=== PATIENT | female | born 1960 | race Caucasian/White ===

== ENCOUNTER 2020-05-25 11:25 | Emergency (ER) | payer OTHER, SELFPAY ==
--- NOTE | 2020-05-25 12:21 | ECG_ITS ---
Test Reason : SOB Blood Pressure : / mmHG Vent. Rate : 059 BPM Atrial Rate : 059 BPM P-R Int : 150 ms QRS Dur : 086 ms QT Int : 432 ms P-R-T Axes : 026 052 044 degrees QTc Int : 427 ms Sinus bradycardia Otherwise normal ECG When compared with ECG of 15-JUN-2012 09:38, No significant change was found Referred By: Leyda Prince Electronically Signed By:Mervin Dee
[2020-05-25 12:22] VITALS: BP 165/72; PULSE 57; RESP 16; TEMP 36.7; O2SAT 100; BMI 37.4
--- NOTE | 2020-05-25 12:22 | XR_ITS ---
EXAMINATION: XR CHEST CLINICAL INFORMATION: Shortness of breath, productive cough and dizziness COMPARISON: Previous chest x-ray most recent June 2014 TECHNIQUE: Frontal view of the chest was obtained. FINDINGS: The cardiac silhouette does not appear enlarged. There is an abnormal density left medial lung base. This is similar to previous chest x-ray from 2015 and may represent a small esophageal hernia. Hilar and mediastinal contours are otherwise unremarkable. There is a 3 mm nodule in the left upper lobe that is stable. The lungs are otherwise clear. There is no pleural effusion or pneumothorax. Bony structures are unremarkable XR/XR chest 1V IMPRESSION: No evidence for acute disease in the chest. Probable small esophageal hernia.
--- NOTE | 2020-05-25 12:24 | ED_ITS ---
HPI - SOB/Dyspnea General Chief Complaint: Dyspnea Stated Complaint: SOB Time Seen by Provider: 05/25/20 12:11 Source: patient Mode of arrival: ambulatory Limitations: no limitations History of Present Illness HPI Narrative: 60yoF c PMHx of HTN, Depression and + COVID-19 on Apr 30 presenting to the ED c c/o productive cough c SOB, productive cough and episode of dizziness yesterday while at work sitting down yesterday c chest wall discomfort worse c cough. Associated b/l hand tingling. Denies dizziness at this time, lightheadedness, changes in vision, nausea/vomiting, hemoptysis, dyspnea on exertion, orthopnea, palpitations, extremity edema, any symptoms or any other symptoms complaints or concerns at this time. Related Data Previous Rx's Medication Instructions Recorded albuterol sulfate 1 inh INHALATION QID PRN #8.5 g 05/25/20 azithromycin See Rx Instructions .ROUTE 05/25/20 .COMPLEX #6 tab cyclobenzaprine 10 mg PO TID PRN #10 tab 05/25/20 Allergies Allergy/AdvReac Type Severity Reaction Status Date / Time citalopram Allergy Unknown restless Verified 05/30/19 00:00 leg syndrome No Known Allergies Allergy Unverified 01/12/20 15:23 venlafaxine AdvReac Unknown abdominal Verified 05/30/19 00:00 pain BuPROPion HBr ER Allergy Unknown inadequate Uncoded 05/30/19 00:00 response Review of Systems Review of Systems: Constitutional : no history of PE or DVT, denies recent tr marquis, No Fever, No Chills ENT/Mouth : No Hoarseness, No sore throat, No Rhinorrhea Eyes: No Redness, No Discharge, No Vision Changes Cardiovascular : No Chest Pain, + SOB, No Dyspnea on Exertion, No Edema, no pleurisy, Respiratory : + Cough, + Sputum, no stridor, no hemoptysis, Gastrointestinal : No Nausea, No Vomiting, No Diarrhea, No abdominal Pain Genitourinary : No Dysuria, No Hematuria Musculoskeletal : No joint pain, No Myalgias Extremities: no extremity swelling /pain Skin : No rash, no itching, no swelling Neuro : + Dizziness, No Weakness, No Numbness, No Headache Psych : No anxiety, depression Heme/Lymph: No Bruising, No Bleeding Endocrine : No Polyuria, No Polydipsia Yes all other systems are reviewed and are negative [facility] Past Medical History Attestation statement: The following information was validated with the patient. Medical History Lab test positive for detection of COVID-19 virus Obesity Social History Social History Alcohol intake: never Smoking Status: Never smoker Use of substances other than those prescribed or required for medical reasons: No Advance Directives: Yes Advance Directives Information Provided: Yes Advance Directives on File: No Physical Exam Vital Signs: Vital Signs: Last Vital Signs Temp 98.0 F 05/25/20 12:22 Pulse 57 05/25/20 12:22 Resp 16 05/25/20 12:22 BP 165/72 H 05/25/20 12:22 Pulse Ox 100 05/25/20 12:22 Body Mass Index 37.4 vital signs have been reviewed as normal and appeared to be correct. Blood pressure hypertensive. Heart rate normal. Respiration rate normal. Temperature normal. Oxygen saturation normal. Appearance: Alert. Oriented X3. No acute distress. Head: Normal external exam. Normocephalic. Atraumatic. Eyes: PERRLA. EOMI. Conjunctiva and sclera normal. Eyelids normal. ENT: EAC normal. TM's Normal. Pharynx normal. Uvula midline. Moist mucous membranes. No trismus noted. No drooling noted. No muffled voice noted. Neck: Normal inspection. Neck supple. FROM. No adenopathy. Thyroid Normal. No meningeal signs. No neck mass noted. CVS: Normal heart rate and rhythm. Heart sound normal. No murmurs noted. Pulses normal throughout. Respiratory: No respiratory distress. Painless inspiration. Breath sounds normal. No wheezes/rales/rhonchi noted. Chest nontender. No accessory muscle usage noted or decreased air movement noted. Back: Full range of motion noted. Skin: Skin warm and dry. Normal skin color. Normal skin turgor. No rashes/lesions/lacerations noted. Extremities: No lower extremity edema. No calf tenderness noted. Extremities exhibit normal range of motion. Extremities nontender. Neuro: Oriented X 3. No motor deficit. No sensory deficit. Reflexes normal. Course Course Course Narrative: 60yoF c PMHx of HTN, Depression and + COVID-19 on Apr 30 presenting to the ED c c/o productive cough c SOB, productive cough and episode of dizziness yesterday while at work sitting down yesterday c chest wall discomfort worse c cough. Associated b/l hand tingling. - Concern for PE vs CHF vs ACS - PLAN: LABS, CHEST X-RAY, EKG, ORTHOSTATIC VITALS. THEN RE-EVALUATE. Reevaluation(s) Reevaluation #1: - all labs including D-dimer and troponin within normal limits. COVID/RSV/flu negative. EKG sinus bradycardia otherwise no acute ischemic changes noted. Chest x-ray revealed a hiatal hernia and a pulmonary nodule therefore I printed out the chest x-ray results and handed to the patient. CT scan of brain within normal limits no acute processes noted. Will DC home with antibiotics for possible bronchitis infection. Will also give referral to GI for her hiatal hernia and pulmonology for her pulmonary nodule. Will DC home with antibiotics and symptomatic treatment along with instructions return if any new or worsening symptoms to follow up with primary care provider and the referrals that I gave her. Patient understands agrees with this plan. Time: 15:14 MDM - SOB/Dyspnea Differential Diagnosis Differential diagnosis: Likely congestive heart failure, pneumonia, asthma with exacerbation, pulmonary embolism, pleural effusion and anemia Medical Records Attestation: I reviewed the patient's medical records. Lab Data Attestation: I reviewed the patient's lab results. Result diagrams: 05/25/20 13:09 05/25/20 13:09 Labs: Lab Results 05/25/20 05/25/20 05/25/20 Range/Units 13:09 13:09 13:09 WBC 10.3 (4.8-10.8) X10*3/uL RBC 3.97 L (4.20-5.50) X10*6/uL Hgb 11.2 L (12.0-16.0) g/dl Hct 35.4 L (37-47) % MCV 89.2 (80-98) fL MCH 28.2 (27.0-33.0) pg MCHC 31.6 (31.0-35.0) g/dl RDW 13.2 (11.0-16.0) % Plt Count 216 (160-400) X10*3/uL MPV 9.0 L (9.4-12.3) fL Immature Gran % (Auto) 1.0 H (0.0-0.4) % Neut % (Auto) 56.7 (45-73) % Lymph % (Auto) 33.9 (20-40) % [place] % (Auto) 6.0 (2-11) % Eos % (Auto) 2.1 (0-4) % Baso % (Auto) 0.3 (0-2) % Lymph # (Auto) 3.5 (1.2-4.9) X10*3/uL [place] # (Auto) 0.6 (0.1-1.2) X10*3/uL Eos # (Auto) 0.2 (0.0-0.4) X10*3/uL Baso # (Auto) 0.0 (0.0-0.2) X10*3/uL Abs Immat Gran (auto) 0.10 H (0.00-0.03) X10*3/uL Absolute Neuts (auto) 5.9 (2.0-8.3) X10*3/uL Absolute Nucleated RBC 0.000 (0.0-0.012) X10*3/uL Nucleated RBC % (auto) 0.0 (0.0-0.2) /100WBC PT 12.6 (10.8-13.0) SEC INR 1.1 (0.9-1.1) D-Dimer < 200 NG/ML Sodium 139 (135-145) mmol/L Potassium 3.6 (3.3-5.1) mmol/L Chloride 100 (96-108) mmol/L Carbon Dioxide 31 H (22-29) mmol/L Anion Gap 12 (12-20) BUN 13 (9-16) mg/dL Creatinine 0.72 (0.5-1.4) mg/dL Estim Creat Clear Calc 86.8 Estimated GFR > 60 Random Glucose 92 (60-115) mg/dL Calcium 9.0 (8.4-10.2) mg/dL Magnesium 2.1 (1.6-2.6) mg/dL Ferritin (10-250) ng/mL Total Bilirubin 0.5 (0.0-1.0) mg/dL Direct Bilirubin < 0.2 (0.0-0.5) mg/dL AST 18 (5-31) U/L ALT 25 (0-31) U/L Alkaline Phosphatase 91 (39-117) U/L Lactate Dehydrogenase 198 (122-220) U/L Troponin I High Sens (<3.5-17.0) ng/L C-Reactive Protein 1.07 H (< or = 0.50) mg/dL B-Natriuretic Peptide (<100) pg/mL Total Protein 7.7 (6.5-8.0) g/dL Albumin 4.2 (3.5-5.0) g/dL Specimen Comment Coronavirus (PCR) (Negative) Influenza Type A (PCR) (Negative) Influenza Type B (PCR) (Negative) RSV RNA Qual (PCR) (Negative) 05/25/20 05/25/20 05/25/20 Range/Units 13:09 13:09 13:09 WBC (4.8-10.8) X10*3/uL RBC (4.20-5.50) X10*6/uL Hgb (12.0-16.0) g/dl Hct (37-47) % MCV (80-98) fL MCH (27.0-33.0) pg MCHC (31.0-35.0) g/dl RDW (11.0-16.0) % Plt Count (160-400) X10*3/uL MPV (9.4-12.3) fL Immature Gran % (Auto) (0.0-0.4) % Neut % (Auto) (45-73) % Lymph % (Auto) (20-40) % [place] % (Auto) (2-11) % Eos % (Auto) (0-4) % Baso % (Auto) (0-2) % Lymph # (Auto) (1.2-4.9) X10*3/uL [place] # (Auto) (0.1-1.2) X10*3/uL Eos # (Auto) (0.0-0.4) X10*3/uL Baso # (Auto) (0.0-0.2) X10*3/uL Abs Immat Gran (auto) (0.00-0.03) X10*3/uL Absolute Neuts (auto) (2.0-8.3) X10*3/uL Absolute Nucleated RBC (0.0-0.012) X10*3/uL Nucleated RBC % (auto) (0.0-0.2) /100WBC PT (10.8-13.0) SEC INR (0.9-1.1) D-Dimer NG/ML Sodium (135-145) mmol/L Potassium (3.3-5.1) mmol/L Chloride (96-108) mmol/L Carbon Dioxide (22-29) mmol/L Anion Gap (12-20) BUN (9-16) mg/dL Creatinine (0.5-1.4) mg/dL Estim Creat Clear Calc Estimated GFR Random Glucose (60-115) mg/dL Calcium (8.4-10.2) mg/dL Magnesium (1.6-2.6) mg/dL Ferritin 159 (10-250) ng/mL Total Bilirubin (0.0-1.0) mg/dL Direct Bilirubin (0.0-0.5) mg/dL AST (5-31) U/L ALT (0-31) U/L Alkaline Phosphatase (39-117) U/L Lactate Dehydrogenase (122-220) U/L Troponin I High Sens < 3.5 (<3.5-17.0) ng/L C-Reactive Protein (< or = 0.50) mg/dL B-Natriuretic Peptide 67 (<100) pg/mL Total Protein (6.5-8.0) g/dL Albumin (3.5-5.0) g/dL Specimen Comment Coronavirus (PCR) NEGATIVE (Negative) Influenza Type A (PCR) NEGATIVE (Negative) Influenza Type B (PCR) NEGATIVE (Negative) RSV RNA Qual (PCR) NEGATIVE (Negative) 05/25/20 Range/Units 14:02 WBC (4.8-10.8) X10*3/uL RBC (4.20-5.50) X10*6/uL Hgb (12.0-16.0) g/dl Hct (37-47) % MCV (80-98) fL MCH (27.0-33.0) pg MCHC (31.0-35.0) g/dl RDW (11.0-16.0) % Plt Count (160-400) X10*3/uL MPV (9.4-12.3) fL Immature Gran % (Auto) (0.0-0.4) % Neut % (Auto) (45-73) % Lymph % (Auto) (20-40) % [place] % (Auto) (2-11) % Eos % (Auto) (0-4) % Baso % (Auto) (0-2) % Lymph # (Auto) (1.2-4.9) X10*3/uL [place] # (Auto) (0.1-1.2) X10*3/uL Eos # (Auto) (0.0-0.4) X10*3/uL Baso # (Auto) (0.0-0.2) X10*3/uL Abs Immat Gran (auto) (0.00-0.03) X10*3/uL Absolute Neuts (auto) (2.0-8.3) X10*3/uL Absolute Nucleated RBC (0.0-0.012) X10*3/uL Nucleated RBC % (auto) (0.0-0.2) /100WBC PT (10.8-13.0) SEC INR (0.9-1.1) D-Dimer NG/ML Sodium (135-145) mmol/L Potassium (3.3-5.1) mmol/L Chloride (96-108) mmol/L Carbon Dioxide (22-29) mmol/L Anion Gap (12-20) BUN (9-16) mg/dL Creatinine (0.5-1.4) mg/dL Estim Creat Clear Calc Estimated GFR Random Glucose (60-115) mg/dL Calcium (8.4-10.2) mg/dL Magnesium (1.6-2.6) mg/dL Ferritin (10-250) ng/mL Total Bilirubin (0.0-1.0) mg/dL Direct Bilirubin (0.0-0.5) mg/dL AST (5-31) U/L ALT (0-31) U/L Alkaline Phosphatase (39-117) U/L Lactate Dehydrogenase (122-220) U/L Troponin I High Sens (<3.5-17.0) ng/L C-Reactive Protein (< or = 0.50) mg/dL B-Natriuretic Peptide (<100) pg/mL Total Protein (6.5-8.0) g/dL Albumin (3.5-5.0) g/dL Specimen Comment DELAY Coronavirus (PCR) (Negative) Influenza Type A (PCR) (Negative) Influenza Type B (PCR) (Negative) RSV RNA Qual (PCR) (Negative) Imaging Data Chest x-ray: Attestation: I personally reviewed and interpreted this imaging study as follows: Radiologist's impression: FINDINGS: The cardiac silhouette does not appear enlarged. There is an abnormal density left medial lung base. This is similar to previous chest x-ray from 2015 and may represent a small esophageal hernia. Hilar and mediastinal contours are otherwise unremarkable. There is a 3 mm nodule in the left upper lobe that is stable. The lungs are otherwise clear. There is no pleural effusion or pneumothorax. Bony structures are unremarkable XR/XR chest 1V IMPRESSION: No evidence for acute disease in the chest. Probable small esophageal hernia. CT scan - head: Attestation: I personally reviewed and interpreted this imaging study as follows: Radiologist's impression: FINDINGS: There is no evidence of acute intracranial hemorrhage or territorial infarction. No abnormal mass effect or midline shift is seen. Breaux to white matter differentiation is well preserved. No extra-axial fluid collections are identified. The ventricles are normal in size. There is no abnormal attenuation within the brain parenchyma. The osseous structures and soft tissues are normal. No acute intracranial process seen. CT/CT head/brain wo con IMPRESSION: No acute intracranial process seen. ECG Data Attestation: I personally reviewed and interpreted this ECG as follows: ECG interpretation date: 05/25/20 ECG interpretation time: 12:43 Interpretation: Sinus bradycardia with ventricular rate of 59 with a normal IN interval normal QRS duration normal QT/QTC interval. No acute ischemic changes noted. EKG 06/15/2012. Discharge Plan Discharge Clinical Impression: Esophageal hernia, Lung nodule, Bronchitis, Dizziness of unknown etiology, COVID-19 Patient Disposition: Home, Self-Care Instructions: Hiatal Hernia (ED), Pulmonary Nodules (ED) Prescriptions: New azithromycin 250 mg tablet See Rx Instructions .ROUTE .COMPLEX Qty: 6 RF: 0 albuterol sulfate 90 mcg/actuation HFA aerosol inhaler 1 inh inhalation QID PRN (Reason: shortness of breath or wheezing) Qty: 8.5 RF: 0 cyclobenzaprine 10 mg tablet 10 mg PO TID PRN (Reason: muscle spasm) Qty: 10 RF: 0 Referrals: Belén Rowland MD [Physician] - 1 week (Hiatal hernia follow-up) Brent Khan MD [Physician] - 1 week (Pulmonary nodule follow-up) Stand Alone Forms: Work/School Release Print Language: Estonian
[2020-05-25 13:16] LABS: MANUAL DIFF FLAG NO
[2020-05-25 13:19] LABS: Basophils Percent Auto 0.3 % (0-2); Eosinophils Absolute Auto 0.2 X10*3/uL (0.0-0.4); Eosinophils Percent Auto 2.1 % (0-4); Hematocrit 35.4 % (37-47); Hemoglobin 11.2 g/dl (12.0-16.0); Lymphocytes Absolute Auto 3.5 X10*3/uL (1.2-4.9); Lymphocytes Percent Auto 33.9 % (20-40); Mean Corpuscular HGB Conc 31.6 g/dl (31.0-35.0); Mean Corpuscular Hemoglobin 28.2 pg (27.0-33.0); Mean Corpuscular Volume 89.2 fL (80-98); Monocytes Absolute Auto 0.6 X10*3/uL (0.1-1.2); Neutrophils Absolute Auto 5.9 X10*3/uL (2.0-8.3); Neutrophils Percent Auto 56.7 % (45-73); Platelet Count 216 X10*3/uL (160-400); Red Blood Count 3.97 X10*6/uL (4.20-5.50); Red Cell Distribution Width 13.2 % (11.0-16.0); White Blood Count 10.3 X10*3/uL (4.8-10.8)
[2020-05-25 13:24] LABS: INTERNATIONAL NORM RATIO 1.1 (0.9-1.1); Prothrombin Time 12.6 SEC (10.8-13.0)
[2020-05-25 13:32] LABS: D Dimer < 200 NG/ML
[2020-05-25 13:56] LABS: Alanine Aminotransferase 25 U/L (0-31); Albumin Level 4.2 g/dL (3.5-5.0); Alkaline Phosphatase 91 U/L (39-117); Anion Gap 12 (12-20); Aspartate Amino Transferase 18 U/L (5-31); B Type Natriuretic Peptide 67 pg/mL (<100); Bilirubin Direct < 0.2 mg/dL (0.0-0.5); Bilirubin Total 0.5 mg/dL (0.0-1.0); Blood Urea Nitrogen 13 mg/dL (9-16); C Reactive Protein 1.07 mg/dL (< or = 0.50); Carbon Dioxide 31 mmol/L (22-29); Chloride 100 mmol/L (96-108); Creatinine Clr Calc Pharmacy 86.8; Estimated Glomerular Filt Rate > 60; Glucose Random 92 mg/dL (60-115); Lactate Dehydrogenase 198 U/L (122-220); Magnesium 2.1 mg/dL (1.6-2.6); Potassium 3.6 mmol/L (3.3-5.1); Sodium 139 mmol/L (135-145); Total Protein 7.7 g/dL (6.5-8.0); Troponin-I High Sensitivity < 3.5 ng/L (<3.5-17.0)
[2020-05-25 14:03] LABS: Delay - Chemistry DELAY
[2020-05-25 14:04] LABS: Influenza A PCR NEGATIVE (Negative); Influenza B PCR NEGATIVE (Negative); Resp Syncy Virus RNA Qual PCR NEGATIVE (Negative); SARS COV2 PCR INHOUSE NEGATIVE (Negative)
--- NOTE | 2020-05-25 14:06 | CT_ITS ---
EXAMINATION: CT HEAD WITHOUT CONTRAST CLINICAL INFORMATION: Dizziness yesterday. COMPARISON: None TECHNIQUE: Contiguous axial imaging was performed from the skull base to vertex without intravenous administration of contrast. This CT examination was performed using dose optimization techniques as appropriate, variously including the following: *Automated exposure control *Adjustment of mA and/or kV according to patient size (this includes techniques or standardized protocols for targeted exams where dose is matched to indication/reason for exam; i.e. extremities or head) *Use of iterative reconstruction technique DLP: 697 mGy-cm FINDINGS: There is no evidence of acute intracranial hemorrhage or territorial infarction. No abnormal mass effect or midline shift is seen. Breaux to white matter differentiation is well preserved. No extra-axial fluid collections are identified. The ventricles are normal in size. There is no abnormal attenuation within the brain parenchyma. The osseous structures and soft tissues are normal. No acute intracranial process seen. CT/CT head/brain wo con IMPRESSION: No acute intracranial process seen.
[2020-05-25 14:16] LABS: Ferritin 159 ng/mL (10-250)
[2020-05-25 15:19] LABS: Procalcitonin 0.03 ng/mL
== END 2020-05-25 15:38 | disposition home or self-care (01) ==
PROVIDERS: Physician Assistant Medical; Emergency Provider Emergency Medicine; PCP Internal Medicine
DX: U07.1 COVID-19 (principal); K44.9 Diaphragmatic hernia without obstruction or gangrene; R91.1 Solitary pulmonary nodule; R06.02 Shortness of breath; R42 Dizziness and giddiness; Z79.899 Other long term (current) drug therapy
CPT/HCPCS: 0241U; 36415; 70450; 71045; 80048; 80076; 82728; 83615; 83735; 83880; 84145; 84484; 85025; 85379; 85610; 86140; 93005; 99284

== ENCOUNTER 2020-06-25 08:59 | Outpatient (REF) | payer OTHER, SELFPAY ==
[2020-06-25 11:05] LABS: Alanine Aminotransferase 22 U/L (0-31); Albumin Level 4.5 g/dL (3.5-5.0); Alkaline Phosphatase 86 U/L (39-117); Anion Gap 11 (12-20); Aspartate Amino Transferase 20 U/L (5-31); Bilirubin Total 0.5 mg/dL (0.0-1.0); Blood Urea Nitrogen 17 mg/dL (9-16); Calcium 9.4 mg/dL (8.4-10.2); Carbon Dioxide 31 mmol/L (22-29); Chloride 100 mmol/L (96-108); Estimated Glomerular Filt Rate > 60; Glucose Fasting 126 mg/dL (60-99); Potassium 3.4 mmol/L (3.3-5.1); Sodium 139 mmol/L (135-145); Total Protein 8.3 g/dL (6.5-8.0)
== END 2020-06-25 09:00 | disposition home or self-care (01) ==
LOC: HO.LAB 08:59
PROVIDERS: Absent Provider Internal Medicine; PCP Internal Medicine; Visit Provider Internal Medicine Pulmonary Disease
DX: R91.1 Solitary pulmonary nodule (principal); Z86.16 Personal history of COVID-19; E66.9 Obesity, unspecified
CPT/HCPCS: 36415; 80053

== ENCOUNTER 2020-06-26 12:15 | Outpatient (REF) | payer OTHER, SELFPAY ==
--- NOTE | ~2020-06-26 | MM_ITS ---
EXAMINATION: MM SCREENING DIGITAL BREAST TOMOSYNTHESIS, BILATERAL CLINICAL INFORMATION: Screening. Asymptomatic. The lifetime risk of breast cancer based on the Tyrer-Cuzick Model is 10%. COMPARISON: Mammography: 06/21/2019, 06/15/2018, 01/16/2017 TECHNIQUE: Digital breast tomosynthesis is performed in both the craniocaudal and mediolateral oblique views along with computer-aided detection (CAD). Synthesized 2D images are generated from the tomosynthesis. Additional left CC view is provided. FINDINGS: There are scattered areas of fibroglandular density (ACR BI-RADS breast composition Category b). There are no significant masses, abnormal calcifications, or other abnormalities. Parenchymal pattern is similar to prior exams. No significant changes. MM/MM tomosynthesis screening BI IMPRESSION: No mammographic evidence of malignancy. ASSESSMENT: BI-RADS 1: Negative RECOMMENDATION: Routine annual mammography screening. This patient's information was entered into a reminder system with a target due date for their next mammogram.
== END 2020-06-26 12:16 | disposition home or self-care (01) ==
LOC: HO.MAMMO 12:15
PROVIDERS: PCP Internal Medicine; Visit Provider Internal Medicine
DX: Z12.31 Encounter for screening mammogram for malignant neoplasm of breast (principal)
CPT/HCPCS: 77063; 77067

== ENCOUNTER 2020-07-10 17:03 | Outpatient (REF) | payer OTHER, SELFPAY ==
--- NOTE | ~2020-07-10 | US_ITS ---
EXAMINATION: US VENOUS ULTRASOUND WITH DOPPLER LOWER EXTREMITY, LEFT CLINICAL INFORMATION: Left lower extremity pain COMPARISON: None TECHNIQUE: Ultrasound of the deep veins is performed from the hip to the calf with compression sonography and color and pulse Doppler assessment. Spectral analysis with color-flow imaging is performed. FINDINGS: There is normal venous compression and respiratory variation and augmented flow. The visualized common femoral vein, superficial femoral vein, profunda femoral vein, popliteal vein, and the trifurcation region shows no evidence of deep venous thrombosis. There is no significant popliteal fossa cyst. If the patient's symptoms persist, followup ultrasound in 5 days 7 days might be of value to exclude proximal propagation from a non-visualized calf vein. US/US venous duplex LE LT IMPRESSION: No DVT demonstrated in the left lower extremity.
== END 2020-07-10 17:04 | disposition home or self-care (01) ==
LOC: HO.US 17:03
PROVIDERS: PCP Internal Medicine; Visit Provider Nurse Practitioner Family
DX: M79.605 Pain in left leg (principal)
CPT/HCPCS: 93971

== ENCOUNTER 2020-08-08 12:54 | Outpatient (REF) | payer OTHER, SELFPAY ==
--- NOTE | ~2020-08-08 | CT_ITS ---
EXAMINATION: CT CHEST WITHOUT CONTRAST CLINICAL INFORMATION: Solitary pulmonary nodule COMPARISON: Chest x-ray 05/25/2020 TECHNIQUE: Multidetector volumetric CT imaging of the chest was done. Axial MIP volume rendering provided. Sagittal and coronal reformatted images were obtained. This CT examination was performed using dose optimization techniques as appropriate, variously including the following: *Automated exposure control *Adjustment of mA and/or kV according to patient size (this includes techniques or standardized protocols for targeted exams where dose is matched to indication/reason for exam; i.e. extremities or head) *Use of iterative reconstruction technique DLP: 175 mGy-cm FINDINGS: [employer]GER: Unremarkable LUNGS: The lungs are well-expanded and clear of acute pneumonic process. There is no pulmonary nodule, mass, consolidation with groundglass density. There is a 4 mm calcified granuloma left upper lobe, axial image 145/5.. MEDIASTINUM: The thyroid lobes are symmetrical and normal. The central trachea and the bronchi a widely patent. The heart size and the great vessels are normal caliber. No pericardial effusion seen. No abnormal size mediastinal or hilar lymph nodes seen. PLEURA: There is no pleural effusion. No pleural mass or thickening. AXILLA: There are bilateral small axillary lymph nodes. Largest lymph nodes are visualized in the left axillary lymph node with central hypoechoic medulla likely benign. The largest lymph node measures 1.9 x 1.2 cm. A 1.2 cm lymph node without any central medullary lucency seen in the left axilla on axial image 16/3. UPPER ABDOMEN: The liver is diffusely attenuated without focal lesion. No intrahepatic ductal dilatation seen. The spleen is unremarkable. The pancreas, bilateral adrenal glands and gallbladder appears unremarkable. OSSEOUS STRUCTURES: No lytic or sclerotic process seen. Mild ventral spondylosis. CT/CT chest wo con IMPRESSION: Solitary calcified granuloma left upper lobe. No additional nodules seen.
== END 2020-08-08 12:55 | disposition home or self-care (01) ==
LOC: HO.CT 12:54
PROVIDERS: PCP Internal Medicine; Visit Provider Internal Medicine Pulmonary Disease
DX: R91.1 Solitary pulmonary nodule (principal)
CPT/HCPCS: 71250

== ENCOUNTER → 2020-08-22 14:49 | Outpatient (BNVA) | payer OTHER, SELFPAY | PROVIDERS: PCP Internal Medicine; Visit Provider Internal Medicine Pulmonary Disease ==

== ENCOUNTER 2020-10-09 15:00 | Outpatient (REF) | payer OTHER, SELFPAY ==
--- NOTE | 2020-10-09 17:27 | PFT_ITS ---
INDICATION: Dyspnea. SPIROMETRY: FEV1 to FVC of 90% with an FEV1 of 2.29 L, which is 99% predicted and FVC of 2.54 L, which is 87% predicted. No significant response to bronchodilators noted. Maximum voluntary ventilation 125% predicted. LUNG VOLUMES: Total lung capacity 81% predicted with an expiratory reserve volume of 54% predicted. DIFFUSION CAPACITY: DLCO 92% predicted. Flow volume loop appears to be normal. COMPARISONS: Not available. INTERPRETATION: No obstructive nor restrictive ventilatory defects identified. No significant response to bronchodilators noted. Normal maximum voluntary ventilation. Lung volumes are in the low normal, so therefore an occult interstitial lung conditions cannot be ruled out. Diffusion capacity is within normal limits. Clinical correlation warranted. Brent Khan MD MR/MODL / [id number]
== END 2020-10-09 15:01 | disposition home or self-care (01) ==
LOC: HO.RESP 15:00
PROVIDERS: PCP Internal Medicine; Visit Provider Internal Medicine Pulmonary Disease
DX: R06.00 Dyspnea, unspecified (principal)
CPT/HCPCS: 94060; 94727; 94729

== ENCOUNTER 2020-10-17 11:42 | Outpatient (REF) | payer OTHER, SELFPAY ==
[2020-10-18 13:57] LABS: H Pylori Breath Test NOT DETECTED (NOT DETECTED)
== END 2020-10-17 11:43 | disposition home or self-care (01) ==
LOC: HO.LNP 11:42
PROVIDERS: PCP Internal Medicine; Visit Provider Nurse Practitioner Family
DX: K21.9 Gastro-esophageal reflux disease without esophagitis (principal)
CPT/HCPCS: 83013

== ENCOUNTER → 2020-11-01 15:31 | Outpatient (BNVA) | payer OTHER, SELFPAY | PROVIDERS: PCP Internal Medicine; Visit Provider Internal Medicine Pulmonary Disease ==

== ENCOUNTER → 2020-11-20 16:14 | Outpatient (BNVA) | payer OTHER, SELFPAY | PROVIDERS: PCP Internal Medicine; Referring Provider Internal Medicine; Visit Provider Nurse Practitioner Family ==

== ENCOUNTER → 2021-02-18 16:08 | Outpatient (BNVA) | payer OTHER, SELFPAY | PROVIDERS: PCP Internal Medicine; Referring Provider Internal Medicine; Visit Provider Nurse Practitioner Family ==

== ENCOUNTER 2021-04-12 11:15 | Emergency (ER) | payer OTHER, SELFPAY ==
--- NOTE | ~2021-04-12 | CT_ITS ---
EXAMINATION: CT ANGIOGRAM OF THE CHEST WITH AND WITHOUT CONTRAST (CT PULMONARY ANGIOGRAM FOR PE) CLINICAL INFORMATION: Reason for Exam SOB, chest pain, pleuritic COMPARISON: None TECHNIQUE: Prior to contrast administration, noncontrast localization images were obtained. Subsequently, multidetector volumetric imaging was performed from the thoracic inlet to below the diaphragms following the administration of 80 mL Omnipaque 350 intravenous contrast. No contrast reaction reported Sagittal, coronal, and MIP oblique sagittal reformatted images were obtained on the CT workstation, uploaded to PACS, and reviewed. This CT examination was performed using dose optimization techniques as appropriate, variously including the following: *Automated exposure control *Adjustment of mA and/or kV according to patient size (this includes techniques or standardized protocols for targeted exams where dose is matched to indication/reason for exam; i.e. extremities or head) *Use of iterative reconstruction technique Total exam dose-length product 337 mGy-cm FINDINGS: QUALITY OF STUDY/CONTRAST BOLUS: Satisfactory. PULMONARY ARTERIES: No central or segmental pulmonary emboli. THORACIC AORTA: No aneurysm or dissection. LUNG: The lungs are well-expanded and clear of acute pneumonic process. There are no pulmonary nodules, mass or consolidation. PLEURA: No pleural effusion or pneumothorax. MEDIASTINUM: The heart size is normal. There is no pericardial effusion. Central trachea and the bronchi widely patent. The thyroid lobes are symmetrical and normal. No abnormal size mediastinal lymph nodes seen. There is no pericardial effusion. A small hiatal hernia is noted. Evidence of septal bowing or right heart strain. CHEST WALL/AXILLA: No axillary or internal mammary lymphadenopathy. OSSEOUS STRUCTURES: No lytic or sclerotic process seen. UPPER ABDOMEN: The liver is diffusely attenuated without focal lesion. There is no hepatomegaly. No intrahepatic ductal dilatation seen. Visualized spleen, pancreas and bilateral adrenal glands are unremarkable. No reflux of contrast into the hepatic veins to suggest elevated right heart pressures. CT/CT angio chest PE protocol IMPRESSION: No evidence of PE. No evidence aortic dissection. The lungs are clear. Mild hepatic steatosis. Small hiatal hernia. VTE: negative
--- NOTE | 2021-04-12 11:17 | ECG_ITS ---
Test Reason : CHEST PAIN Blood Pressure : / mmHG Vent. Rate : 066 BPM Atrial Rate : 066 BPM P-R Int : 148 ms QRS Dur : 080 ms QT Int : 388 ms P-R-T Axes : 020 040 051 degrees QTc Int : 406 ms Normal sinus rhythm Normal ECG When compared with ECG of 25-MAY-2020 12:43, No significant change was found Referred By: Generic ED Physician Electronically Signed By:MARCO PEREZ MD
[2021-04-12 11:32] VITALS: BP 152/72; PULSE 77; RESP 18; TEMP 36.8; O2SAT 97; BMI 35.4
--- NOTE | 2021-04-12 12:54 | ED.CHESTPAIN ---
HPI - Chest Pain General Chief Complaint: Chest Pain Stated Complaint: Chest pain Time Seen by Provider: 04/12/21 12:54 Source: patient Mode of arrival: ambulatory Limitations: no limitations History of Present Illness HPI narrative: 60-year-old female past medical history significant for obesity, depression, hypertension, history of DVT, GERD, asthma presents to the emergency department with complaints of shortness of breath, palpitations, back pain radiating to chest and chest pressure x2 weeks but particularly bad today. Patient tells me she has been experiencing persistent shortness of breath, worse with exertion better at rest for the past 2 weeks. She tells me that she has chest pain that she describes as pressure and at times it feels like sharp pain localized to the center of her chest without radiation. She tells me that when she takes a deep breath in her chest hurts. She also tells me that this morning she had an episode of back pain that radiated to her chest, it happened 2 times lasted a few seconds, and felt like a sharp sensation. 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 Patient is not currently on blood thinners, she is not a smoker. She has no cardiac history. She denies nausea, vomiting, abdominal pain, fevers, chills, diarrhea, weakness, headache, dizziness, vision changes. Patient does report that recently her mom moved in with her, and she has been taking care of her which has been causing her a lot of stress however she does not think that this is contributing to her symptoms. MD complaint: chest pain and other (palpitations, shortness of breath ) Pertinent past history: other (HTN ) Onset (ago): week(s) (2) Timing of current episode: episodic Prior episodes: No Onset: other (todays episode started at work) Pain location: substernal Pain radiation: none Severity: severe Quality: sharp and other ( pressure that is constant with periodic sharp pain ) Relieving factors: nothing Exacerbating factors: other (deep breaths ) Associated symptoms: other (shortness of breath ) Treatment prior to arrival: none Related Data Previous Rx's Medication Instructions Recorded albuterol sulfate 90 mcg/actuation 1 inh INHALATION QID PRN #8.5 g 05/25/20 aerosol inhaler hydrochlorothiazide 25 mg tablet 25 mg PO DAILY 90 Days #90 tab 08/16/20 fluticasone furoate 200 1 inh INHALATION DAILY 30 Days #1 11/01/20 mcg-vilanterol 25 mcg/dose ea inhalation powder (Breo Ellipta) escitalopram oxalate 5 mg tablet 5 mg PO DAILY 90 Days #90 tab 01/03/21 omeprazole 20 mg capsule,delayed 20 mg PO DAILY #90 cap 02/18/21 release ferrous sulfate 325 mg (65 mg 325 mg PO DAILY #30 tab 04/12/21 iron) tablet,delayed release lorazepam 0.5 mg tablet (Ativan) 0.5 mg PO BID PRN #14 tab 04/12/21 Allergies Allergy/AdvReac Type Severity Reaction Status Date / Time citalopram Allergy Intermediate restless Verified 04/12/21 11:32 leg syndrome venlafaxine AdvReac Intermediate abdominal Verified 04/12/21 11:32 pain bupropion AdvReac Mild angry Verified 04/12/21 11:32 Review of Systems Review of Systems: Constitutional : No Weight loss, No Fever, No Chills, + Fatigue, No Malaise ENT/Mouth : No sore throat, No Rhinorrhea Eyes: No Eye Pain, No Swelling, No Redness Cardiovascular : + Chest Pain, No SOB, No Dyspnea on Exertion, No Orthopnea, No Edema, + Palpitations Respiratory : No Cough, No Sputum, No Wheezing Gastrointestinal : No Nausea, No Vomiting, No Diarrhea, No Constipation, No abdominal Pain, No Hematochezia, No Melena Genitourinary : No Dysuria, No Urinary Frequency, No Hematuria, Musculoskeletal : No joint pain, No Myalgias, No Joint Swelling Skin : No Skin Lesions, No rash Neuro : No Weakness, No Numbness, No Dizziness, No Headache Psych : No Anxiety/Panic, No Depression All other systems reviewed and are negative Yes all other systems are reviewed and are negative [facility] Past Medical History Attestation statement: The following information was validated with the patient. Source: old records reviewed and nursing notes reviewed Medical History Cramps of lower extremity Deep vein thrombosis (DVT) Family history of thyroid disease GERD (gastroesophageal reflux disease) Impaired glucose tolerance Lab test positive for detection of COVID-19 virus Obesity Surgical History No history of previous surgery Family History Family History Mother Alzheimer disease Dementia Hypertension Thyroid disease Mental health disorder Father No problems noted. Social History Social History Housing: House Alcohol intake: never Patient Tobacco Use Status: Former Tobacco user service: No Current occupational status: employed Physical Exam Vital Signs: Vital Signs: Last Vital Signs Temp 98.2 F 04/12/21 11:32 Pulse 77 04/12/21 11:32 Resp 18 04/12/21 11:32 BP 152/72 H 04/12/21 11:32 Pulse Ox 97 04/12/21 11:32 BMI result Body Mass Index 35.4 VSS Noted to be slightly hypertensive, patient has a hx of hypertension. Appearance: Alert.? Oriented X3.? No acute distress.? Head: Normocephalic, atraumatic, no step-offs or deformities Eyes: Pupils equal, round and reactive to light.? ENT: Pharynx normal.? Neck: Normal inspection.? Neck supple.? CVS: + rapid rate regular rythem.? Pulses normal.? Respiratory: No respiratory distress.? Breath sounds normal.? Abdomen: Soft and nontender.? Skin: Skin warm and dry.? Normal skin color.? Normal skin turgor.? Extremities: No lower extremity edema.? No calf ttp. 5/5 strength to bilateral upper and lower extremities Back: No midline tenderness, no C-spine tenderness, full range of motion, no CVA tenderness bilaterally Neuro: Oriented X 3.? No motor deficit.? No sensory deficit. Course Course Course Narrative: This case was discussed with Dr. Angeles who suggests for me to do a rectal exam to rule out rectal bleeding patient has no complaints of bleeding or abdominal pain, therefore CT of the abdomen and pelvis is not needed. Dr. Angeles agrees with my plan ferrous sulfate and DC home with strict return percautions Reevaluation(s) Reevaluation #1: No leukocytosis, anemia is noted however has been present in the past, this time it is more significant. No acute electrolyte abnormalities, troponin negative. Second troponin will be ordered to rule out ACS A rectal exam was done at the bedside with Maryann CHRISTIAN as my switchman. There is no gt blood on my finger. I will send this down for analysis at the lab. Patient does not report vaginal bleeding, or blood in stool or urine. However I will rule this out. Patient does tell me that in the past she has been very anemic, requiring medicine however, she says that her PCP did not feel as though she needed medicine for her anemia. Time: 14:26 Reevaluation #2: Negative occult blood. This is likely patient's baseline anemia, I will send her home on ferrous sulfate. I have told her that if she notices bleeding from her stool, urine or anywhere else she should return for further evaluation. I called Dr. Seals office she is not in today spoke to Nurse Helton. I set up an appointment for patient to see Sammie urbina nurse practitioner in the office on Friday April 16, 2021 to follow-up on her anemia, and do repeat laboratory testing is needed. I have informed the patient she agrees to this plan. Time: 16:01 Reevaluation #3: CT negative for VTE, aortic dissection, PE. There is mild hepatic steatosis and a small hiatal hernia noted. I have discussed these findings with the patient. Second trop pending. Time: 16:21 Additional Reevaluation(s): 1638: Second troponin negative. Patient's chest pressure/palpitations likely secondary to anxiety. Not ACS or PE. Patient is safe for discharge home I will send her home on ferrous sulfate 325 mg p.o. daily, I have advised her to take in the morning with orange juice to aid in absorption. I have also set up the doctor's appointment for her to follow-up with her PCPs office on April 16 at 11:00 a.m.. Patient aware, she tells me she will go to this appointment. MDM - Chest Pain MDM Narrative Medical decision making narrative: [id number] YO pmhx obesity, depression, HTN, hx of DVT, GERD, asthma presents to the ED w/ SOB, palpitations, back pain radiating to chest described as sharp pain lasting seconds and chest pressure thats worse with inspiration x2 weeks but particularly bad today. Physical examination significant for rapid rate regular rhythm. No adventitious lung sounds. Abdomen soft nontender nondistended. No focal neuro deficits. No calf tenderness to palpation. Based off patient's history and physical examination I cannot rule out that this is a pulmonary embolism for that reason a CT of the chest will be done to rule out PE. Plan at this time is to obtain basic labs, CBC, BMP, COVID, magnesium, troponin, EKG. Patient will be placed on continuous cardiac monitoring. In the case that this is anxiety, 0.5 mg of Ativan will be given. Medical Records Data Attestation: I reviewed the patient's medical records. Lab Data Attestation: I reviewed the patient's lab results. Result diagrams: 04/12/21 13:20 04/12/21 13:20 Labs: Lab Results 04/12/21 04/12/21 04/12/21 Range/Units 13:20 13:20 13:20 WBC 8.6 (4.8-10.8) X10*3/uL RBC 3.26 L (4.20-5.50) X10*6/uL Hgb 9.0 L (12.0-16.0) g/dl Hct 28.4 L (37.0-47.0) % MCV 87.1 (80.0-98.0) fL MCH 27.6 (27.0-33.0) pg MCHC 31.7 (31.0-35.0) g/dl RDW 12.7 (11.0-16.0) % Plt Count 180 (160-400) X10*3/uL MPV 8.9 L (9.4-12.3) fL Immature Gran % (Auto) 0.4 (0.0-0.4) % Neut % (Auto) 65.5 (45-73) % Lymph % (Auto) 25.6 (20-40) % [place] % (Auto) 7.0 (2-11) % Eos % (Auto) 1.1 (0-4) % Baso % (Auto) 0.4 (0-2) % Lymph # (Auto) 2.2 (1.2-4.9) X10*3/uL [place] # (Auto) 0.6 (0.1-1.2) X10*3/uL Eos # (Auto) 0.1 (0.0-0.4) X10*3/uL Baso # (Auto) 0.0 (0.0-0.2) X10*3/uL Abs Immat Gran (auto) 0.03 (0.00-0.03) X10*3/uL Absolute Neuts (auto) 5.6 (2.0-8.3) x10*3/uL Absolute Nucleated RBC 0.000 (0.0-0.012) X10*3/uL Nucleated RBC % (auto) 0.0 (0.0-0.2) /100WBC Sodium 141 (135-145) mmol/L Potassium 3.7 (3.3-5.1) mmol/L Chloride 107 (96-108) mmol/L Carbon Dioxide 30 H (22-29) mmol/L Anion Gap 8 L (12-20) BUN 15 (9-16) mg/dL Creatinine 0.67 (0.5-1.4) mg/dL Estim Creat Clear Calc 94.3 Estimated GFR > 60 Random Glucose 109 (60-115) mg/dL Calcium 9.2 (8.4-10.2) mg/dL Magnesium 2.1 (1.6-2.6) mg/dL Total Bilirubin 0.3 (0.0-1.0) mg/dL AST 23 (5-31) U/L ALT 28 (0-31) U/L Alkaline Phosphatase 84 (39-117) U/L Troponin I High Sens < 3.5 (<3.5-17.0) ng/L Total Protein 7.4 (6.5-8.0) g/dL Albumin 3.9 (3.5-5.0) g/dL Beta HCG, Quant 5 mIU/mL Urine Test (NEGATIVE) Stool Occult Blood (NEGATIVE) COVID-19 ([place]) (Negative) COVID-19 Clin Com 04/12/21 04/12/21 04/12/21 Range/Units 14:59 15:00 15:31 WBC (4.8-10.8) X10*3/uL RBC (4.20-5.50) X10*6/uL Hgb (12.0-16.0) g/dl Hct (37.0-47.0) % MCV (80.0-98.0) fL MCH (27.0-33.0) pg MCHC (31.0-35.0) g/dl RDW (11.0-16.0) % Plt Count (160-400) X10*3/uL MPV (9.4-12.3) fL Immature Gran % (Auto) (0.0-0.4) % Neut % (Auto) (45-73) % Lymph % (Auto) (20-40) % [place] % (Auto) (2-11) % Eos % (Auto) (0-4) % Baso % (Auto) (0-2) % Lymph # (Auto) (1.2-4.9) X10*3/uL [place] # (Auto) (0.1-1.2) X10*3/uL Eos # (Auto) (0.0-0.4) X10*3/uL Baso # (Auto) (0.0-0.2) X10*3/uL Abs Immat Gran (auto) (0.00-0.03) X10*3/uL Absolute Neuts (auto) (2.0-8.3) x10*3/uL Absolute Nucleated RBC (0.0-0.012) X10*3/uL Nucleated RBC % (auto) (0.0-0.2) /100WBC Sodium (135-145) mmol/L Potassium (3.3-5.1) mmol/L Chloride (96-108) mmol/L Carbon Dioxide (22-29) mmol/L Anion Gap (12-20) BUN (9-16) mg/dL Creatinine (0.5-1.4) mg/dL Estim Creat Clear Calc Estimated GFR Random Glucose (60-115) mg/dL Calcium (8.4-10.2) mg/dL Magnesium (1.6-2.6) mg/dL Total Bilirubin (0.0-1.0) mg/dL AST (5-31) U/L ALT (0-31) U/L Alkaline Phosphatase (39-117) U/L Troponin I High Sens (<3.5-17.0) ng/L Total Protein (6.5-8.0) g/dL Albumin (3.5-5.0) g/dL Beta HCG, Quant mIU/mL Urine Test NEGATIVE (NEGATIVE) Stool Occult Blood NEGATIVE (NEGATIVE) COVID-19 ([place]) Negative (Negative) COVID-19 Clin Com See Note 04/12/21 Range/Units 16:30 WBC (4.8-10.8) X10*3/uL RBC (4.20-5.50) X10*6/uL Hgb (12.0-16.0) g/dl Hct (37.0-47.0) % MCV (80.0-98.0) fL MCH (27.0-33.0) pg MCHC (31.0-35.0) g/dl RDW (11.0-16.0) % Plt Count (160-400) X10*3/uL MPV (9.4-12.3) fL Immature Gran % (Auto) (0.0-0.4) % Neut % (Auto) (45-73) % Lymph % (Auto) (20-40) % [place] % (Auto) (2-11) % Eos % (Auto) (0-4) % Baso % (Auto) (0-2) % Lymph # (Auto) (1.2-4.9) X10*3/uL [place] # (Auto) (0.1-1.2) X10*3/uL Eos # (Auto) (0.0-0.4) X10*3/uL Baso # (Auto) (0.0-0.2) X10*3/uL Abs Immat Gran (auto) (0.00-0.03) X10*3/uL Absolute Neuts (auto) (2.0-8.3) x10*3/uL Absolute Nucleated RBC (0.0-0.012) X10*3/uL Nucleated RBC % (auto) (0.0-0.2) /100WBC Sodium (135-145) mmol/L Potassium (3.3-5.1) mmol/L Chloride (96-108) mmol/L Carbon Dioxide (22-29) mmol/L Anion Gap (12-20) BUN (9-16) mg/dL Creatinine (0.5-1.4) mg/dL Estim Creat Clear Calc Estimated GFR Random Glucose (60-115) mg/dL Calcium (8.4-10.2) mg/dL Magnesium (1.6-2.6) mg/dL Total Bilirubin (0.0-1.0) mg/dL AST (5-31) U/L ALT (0-31) U/L Alkaline Phosphatase (39-117) U/L Troponin I High Sens < 3.5 (<3.5-17.0) ng/L Total Protein (6.5-8.0) g/dL Albumin (3.5-5.0) g/dL Beta HCG, Quant mIU/mL Urine Test (NEGATIVE) Stool Occult Blood (NEGATIVE) COVID-19 ([place]) (Negative) COVID-19 Clin Com Imaging Data CTA chest: Attestation: I personally reviewed and interpreted this imaging study as follows: Radiologist's impression: CT/CT angio chest PE protocol IMPRESSION: No evidence of PE. No evidence aortic dissection. ? The lungs are clear. ? Mild hepatic steatosis. ? Small hiatal hernia. ? VTE: negative ECG Data ECG #1: Attestation: I personally reviewed and interpreted this ECG as follows: ECG interpretation date: 04/12/21 ECG interpretation time: 11:28 Prior ECG tracings: available for review Interpretation: Ventricular rate of 66, WA normal, QRS normal, QT/QTC normal. EKG shows normal sinus rhythm, no ST elevations or inversions, no acute ischemia. No acute changes when compared with EKG of May 25, 2020. Critical Care Time Critical Care Time Critical Care Time: Yes Total Critical Care Time: 36 Attestation: I attest to this time spent taking care of the patient, reviewing labs, images, speaking to patient's outpatient provider is, reviewing previous visits and laboratory studies, educating the patient and answering questions. Discharge Plan Discharge Clinical Impression: Chest pain not due to acute coronary syndrome, Anxiety, Anemia, Hepatic steatosis, Hernia, hiatal Patient Disposition: Home, Self-Care Instructions: Noncardiac Chest Pain (ED), Anxiety (ED), Panic Attack (ED) Additional Instructions: Take your medications as prescribed. If you were prescribed antibiotics today, it is important that you take your medication to their entirety, do not skip any doses, do not finish them early. Take ferrous sulfate in the AM with orange juice. Your hemoglobin and hematocrit were noted to be lower than your baseline however there is no active bleeding that can be identified at this time. I scheduled an appointment with Dr. Seals office you will be seeing Sammie urbina Nurse Practitioner for follow up appointment is on Monday 04/16 @11 am. Return to the emergency department with new or worsening symptoms. Such as fatigue, headache, dizziness, vision changes, chest pain, shortness of breath, abdominal pain, blood in stool, blood in urine. In case of emergency call 911 Prescriptions: New lorazepam [Ativan] 0.5 mg tablet 0.5 mg PO BID PRN (Reason: anxiety) Qty: 14 RF: 0 ferrous sulfate 325 mg (65 mg iron) tablet,delayed release (DR/EC) 325 mg PO DAILY Qty: 30 RF: 0 No Action escitalopram oxalate 5 mg tablet 5 mg PO DAILY 90 Days Qty: 90 RF: 0 albuterol sulfate 90 mcg/actuation HFA aerosol inhaler 1 inh inhalation QID PRN (Reason: shortness of breath or wheezing) Qty: 8.5 RF: 0 hydrochlorothiazide 25 mg tablet 25 mg PO DAILY 90 Days Qty: 90 RF: 3 Breo Ellipta 200-25 mcg/dose blister with device 1 inh inhalation DAILY 30 Days Qty: 1 RF: 3 omeprazole 20 mg capsule,delayed release(DR/EC) 20 mg PO DAILY Qty: 90 RF: 2 Referrals: Kristin Marquez MD [Primary Care Provider] - 2 days Stand Alone Forms: Work/School Release
[2021-04-12] MEDS: LORazepam 0.5 MG TABLET PO (13:18)
[2021-04-12 13:31] LABS: MANUAL DIFF FLAG NO
[2021-04-12 13:32] LABS: Basophils Percent Auto 0.4 % (0-2); Eosinophils Absolute Auto 0.1 X10*3/uL (0.0-0.4); Eosinophils Percent Auto 1.1 % (0-4); Hematocrit 28.4 % (37.0-47.0); Imm Gran Abs Auto 0.03 X10*3/uL (0.00-0.03); Imm Gran Pct Auto 0.4 % (0.0-0.4); Lymphocytes Absolute Auto 2.2 X10*3/uL (1.2-4.9); Lymphocytes Percent Auto 25.6 % (20-40); Mean Corpuscular HGB Conc 31.7 g/dl (31.0-35.0); Mean Corpuscular Hemoglobin 27.6 pg (27.0-33.0); Mean Corpuscular Volume 87.1 fL (80.0-98.0); Mean Platelet Volume 8.9 fL (9.4-12.3); Monocytes Absolute Auto 0.6 X10*3/uL (0.1-1.2); Neutrophils Absolute Auto 5.6 x10*3/uL (2.0-8.3); Neutrophils Percent Auto 65.5 % (45-73); Platelet Count 180 X10*3/uL (160-400); Red Blood Count 3.26 X10*6/uL (4.20-5.50); Red Cell Distribution Width 12.7 % (11.0-16.0); White Blood Count 8.6 X10*3/uL (4.8-10.8)
[2021-04-12 13:56] LABS: Troponin-I High Sensitivity < 3.5 ng/L (<3.5-17.0)
[2021-04-12 13:57] LABS: Alanine Aminotransferase 28 U/L (0-31); Albumin Level 3.9 g/dL (3.5-5.0); Alkaline Phosphatase 84 U/L (39-117); Anion Gap 8 (12-20); Aspartate Amino Transferase 23 U/L (5-31); Bilirubin Total 0.3 mg/dL (0.0-1.0); Blood Urea Nitrogen 15 mg/dL (9-16); Calcium 9.2 mg/dL (8.4-10.2); Carbon Dioxide 30 mmol/L (22-29); Chloride 107 mmol/L (96-108); Creatinine Clr Calc Pharmacy 94.3; Estimated Glomerular Filt Rate > 60; Glucose Random 109 mg/dL (60-115); Magnesium 2.1 mg/dL (1.6-2.6); Potassium 3.7 mmol/L (3.3-5.1); Sodium 141 mmol/L (135-145); Total Protein 7.4 g/dL (6.5-8.0)
[2021-04-12 14:44] LABS: HCG Quantitative 5 mIU/mL
[2021-04-12 15:09] LABS: OBS Int Ctl Valid YES; OBS1 NEGATIVE (NEGATIVE)
[2021-04-12] MEDS: iohexoL 350 MG/ML 100 ML INFUS..BTL IV (15:21)
[2021-04-12 15:31] LABS: COVID-19 Test Negative (Negative); IDNOW Serial# 9DD0AD1C
[2021-04-12 15:44] LABS: UPreg QC Valid YES; Urine Pregnancy NEGATIVE (NEGATIVE)
[2021-04-12 16:55] LABS: Troponin-I High Sensitivity < 3.5 ng/L (<3.5-17.0)
== END 2021-04-12 17:03 | disposition home or self-care (01) ==
PROVIDERS: Physician Assistant; Emergency Provider Emergency Medicine; PCP Internal Medicine
DX: R07.9 Chest pain, unspecified (principal); R06.02 Shortness of breath; F41.1 Generalized anxiety disorder; F43.0 Acute stress reaction; Z87.891 Personal history of nicotine dependence; Z20.822 Contact with and (suspected) exposure to COVID-19; Z79.899 Other long term (current) drug therapy
CPT/HCPCS: 36415; 71275; 80053; 81025; 82272; 83735; 84484; 84702; 85025; 87635; 93005; 99284; 99291; Q9967

== ENCOUNTER 2021-07-12 16:20 | Outpatient (REF) | payer OTHER, SELFPAY ==
[2021-07-12 16:42] LABS: Hematocrit 36.6 % (37.0-47.0); Hemoglobin 11.4 g/dl (12.0-16.0); Immature Retic Fraction 9.9 % (3.0-15.9); Mean Corpuscular HGB Conc 31.1 g/dl (31.0-35.0); Mean Corpuscular Hemoglobin 26.8 pg (27.0-33.0); Mean Corpuscular Volume 85.9 fL (80.0-98.0); Mean Platelet Volume 9.3 fL (9.4-12.3); Platelet Count 216 X10*3/uL (160-400); Red Blood Count 4.26 X10*6/uL (4.20-5.50); Red Cell Distribution Width 13.5 % (11.0-16.0); Retic HGB Equivalent 31.9 pg (30.0-35.0); Reticulocyte Percent 1.9 % (0.5-1.8); White Blood Count 10.4 X10*3/uL (4.8-10.8)
[2021-07-12 17:04] LABS: Alanine Aminotransferase 25 U/L (0-31); Albumin Level 4.3 g/dL (3.5-5.0); Alkaline Phosphatase 112 U/L (39-117); Anion Gap 15 (12-20); Aspartate Amino Transferase 19 U/L (5-31); Bilirubin Total 0.6 mg/dL (0.0-1.0); Blood Urea Nitrogen 14 mg/dL (9-16); Calcium 9.6 mg/dL (8.4-10.2); Carbon Dioxide 24 mmol/L (22-29); Chloride 104 mmol/L (96-108); Estimated Glomerular Filt Rate > 60; Glucose Fasting 83 mg/dL (60-99); Iron 38 mcg/dL (30-160); Potassium 3.7 mmol/L (3.3-5.1); Sodium 139 mmol/L (135-145); Total Protein 8.1 g/dL (6.5-8.0); Uric Acid 5.2 mg/dL (2.4-5.7)
[2021-07-12 17:23] LABS: Ferritin 134 ng/mL (10-250)
[2021-07-12 18:03] LABS: Percent Iron Saturation 12 % (15-50); Total Iron Binding Capacity 308 mcg/dL (228-428); Unsaturated Iron Binding 270 ug/dL
== END 2021-07-12 16:21 | disposition home or self-care (01) ==
LOC: HO.LAB 16:20
PROVIDERS: PCP Internal Medicine; Visit Provider Nurse Practitioner Family
DX: D64.9 Anemia, unspecified (principal); R73.02 Impaired glucose tolerance (oral); M79.672 Pain in left foot
CPT/HCPCS: 36415; 80053; 82728; 83540; 84550; 85027; 85045

== ENCOUNTER 2021-07-15 08:27 | Day surgery (SDC) | payer OTHER, SELFPAY ==
[2021-06-18 09:26] VITALS: BMI 36.4
--- NOTE | 2021-07-11 13:25 | HO.ANESPROP2 ---
Documented by User: Luisa López NP 07/11/21 13:26 HPI - Anesthesia Eval Consult details Narrative: 61yo F for Upper Endoscopy PMFSH Active Problems Active Problems: All Active Problems (Updated 04/16/21 @ 11:56 by JANET Fernandez) Hepatic steatosis (Acute) Anxiety (Acute) Anemia (Acute) Numbness and tingling in both hands (Acute) Left foot pain (Acute) Asthma (Acute) Dyspnea on exertion (Acute) Impaired glucose tolerance (Acute) GERD (gastroesophageal reflux disease) (Acute) Cramps of lower extremity (Acute) Family history of thyroid disease (Acute) Deep vein thrombosis (DVT) (Acute) Pulmonary nodule (Acute) COVID-19 (Acute) Lab test positive for detection of COVID-19 virus (Acute) Hypertension (Acute) Depression (Acute) Obesity (Acute) Past Medical History Medical History Cramps of lower extremity Deep vein thrombosis (DVT) Family history of thyroid disease GERD (gastroesophageal reflux disease) Impaired glucose tolerance Lab test positive for detection of COVID-19 virus Obesity Family History Family History Mother Alzheimer disease Dementia Hypertension Thyroid disease Mental health disorder Father No problems noted. Surgical History Surgical History No history of previous surgery Social History Social History Housing: House Alcohol intake: never Patient Tobacco Use Status: Former Tobacco user Second Hand Smoke Exposure: Yes Use of substances other than those prescribed or required for medical reasons: No Are you DNR?: No Advance Directives: No Advance Directives Information Provided: Yes Recently lost weight without trying: No Patient : No (menopausal) service: No Current occupational status: employed Meds Allergies Allergy/AdvReac Type Severity Reaction Status Date / Time citalopram Allergy Intermediate restless Verified 04/16/21 11:18 leg syndrome venlafaxine AdvReac Intermediate abdominal Verified 04/16/21 11:18 pain bupropion AdvReac Mild angry Verified 04/16/21 11:18 Exam Exam Date and Time: July 11, 2021 1325 Height,Weight and Vital Signs: Height 5 ft 1 in Weight 87.543 kg Pertinent Lab Results Pertinent Lab Results: Laboratory Tests 04/12/21 04/12/21 13:20 13:20 WBC 8.6 Hgb 9.0 L Hct 28.4 L Plt Count 180 Sodium 141 Potassium 3.7 Chloride 107 Carbon Dioxide 30 H BUN 15 Creatinine 0.67 Narrative Narrative: EKG 03/2021 Vent. Rate : 066 BPM ? ? Atrial Rate : 066 BPM ?? P-R Int : 148 ms? QRS Dur : 080 ms ? ? QT Int : 388 ms ? ? ? P-R-T Axes : 020 040 051 degrees ?? QTc Int : 406 ms ? Normal sinus rhythm Normal ECG When compared with ECG of 25-MAY-2020 12:43, No significant change was found Assessment and Plan Assessment Anesthesia Assessment: Chart Reviewed Documented by User: Padmini Chavez MD 07/15/21 08:57 [facility] Past Medical History Medical History Cramps of lower extremity Deep vein thrombosis (DVT) Family history of thyroid disease GERD (gastroesophageal reflux disease) Impaired glucose tolerance Lab test positive for detection of COVID-19 virus Obesity Family History Family History Mother Alzheimer disease Dementia Hypertension Thyroid disease Mental health disorder Father No problems noted. Family history of problems with anesthesia: No Surgical History Surgical History No history of previous surgery History of Problems with Anesthesia: No Social History Social History Housing: House Alcohol intake: never Patient Tobacco Use Status: Former Tobacco user Second Hand Smoke Exposure: Yes Use of substances other than those prescribed or required for medical reasons: No Are you DNR?: No Advance Directives: No Advance Directives Information Provided: Yes Recently lost weight without trying: No Patient : No (menopausal) service: No Current occupational status: employed Meds Allergies Allergy/AdvReac Type Severity Reaction Status Date / Time citalopram Allergy Intermediate restless Verified 04/16/21 11:18 leg syndrome venlafaxine AdvReac Intermediate abdominal Verified 04/16/21 11:18 pain bupropion AdvReac Mild angry Verified 04/16/21 11:18 Exam Airway Mallampati Class: II TM Dist: >3cm Neck ROM: Full Heart: rrr Lungs: cta Assessment and Plan Assessment Anesthesia Assessment: Anesthesia Plan Discussed and Chart Reviewed Final Anesthetic Review Family History of Problems with Anesthesia: No History of Problems with Anesthesia: No NPO: Yes ASA Class: II Final Preanesthetic Review: No Changes in Pt Med Stat, Meds/Allgs Chart Reviewed and Consent Obtained/Reviewed Patient Risk: Intermediate Procedure Risk: Intermediate Anesthetic Plan Anesthetic Plan: MAC: Disposition: Standard PACU
[2021-07-15 09:03] VITALS: BP 144/71; PULSE 62; RESP 18; TEMP 36.2; O2SAT 97
[2021-07-15] MEDS: Lactated Ringers 1,000 ML 100 ML IVCONT (09:06)
--- NOTE | 2021-07-15 09:07 | PC.NURSE ---
lungs clear bilat
--- NOTE | 2021-07-15 09:26 | MHC.SHP ---
Pre-Procedural Eval Section A Date of Service: 07/15/21 The patient is an INPATIENT: No The History & Physical has been completed within 30 days and I have reviewed it.: No Section B Chief Complaint: reflux disease Details of Present Illness: GERD Relevant Family History (Specify if Yes): No Relevant Social History: Tobacco Use (Former smoker) Present Medications: see Short Stay Collaborative assessment Medical History: Significant History (Deep vein thrombosis (DVT) Family history of thyroid disease GERD (gastroesophageal reflux disease) Impaired glucose tolerance Lab test positive for detection of COVID-19 virus Obesity) History of Previous Operations: No relevant previous surgery Allergies: Allergies Allergy/AdvReac Type Severity Reaction Status Date / Time citalopram Allergy Intermediate restless Verified 04/16/21 11:18 leg syndrome venlafaxine AdvReac Intermediate abdominal Verified 04/16/21 11:18 pain bupropion AdvReac Mild angry Verified 04/16/21 11:18 Review of Systems Sugical H&P ROS: Negative: Constitution, Cardiovascular and Respiratory and Yes, Specify: Gastrointestinal (GERD) Exam Surgical H&P Exam: Normal: Heart, Normal: Lungs and Normal: Extremities Plan Diagnosis/Plan: Unchanged I have reviewed the history and physical and performed a pertinent physical examination on my patient. No changes have occurred unless specified.
--- NOTE | 2021-07-15 09:32 | PM.OP ---
Brief Operative Note Date of Service: 07/15/21 Pre-op diagnosis: GERD Post-op diagnosis: other (GERD, hiatal hernia, gastritis) Procedure: FLEXIBLE TRANSORAL UPPER GASTROINTESTINAL ENDOSCOPY WITH BIOPSIES Consent: Indications for the procedure and potential complications of bleeding, perforation, reaction to medications and missed diagnosis were discussed with the patient and informed consent was obtained. Instrument: Olympus GIF H 190 mid size upper endoscope Monitoring: Vital signs and clinical assessment, continuous EKG monitoring, Pulse oximetry, Carbon Dioxide monitoring and blood pressure monitoring were done throughout the procedure. Procedure: The patient was placed in the left lateral decubitis position and pre-procedure medications were administered and a bite block was placed. The endoscope was inserted into the mouth and advanced under direct vision to the third part of duodenum. A careful inspection was made as the upper endoscope was withdrawn including a retroflexed examination of the proximal stomach; Findings and interventions are described below. Findings: Larynx: Normal Esophagus: Tortuous esophagus with increased tertiary contractions without stricture or ring. GE junction at 30 cms, small hiatal hernia 30 to 33 cms. No esophagitis or Gutierrez's. Stomach: Mild gastric erythema. Biopsies were obtained. Grade 2 flap valve on retroflexed examination of the cardia. Duodenum: Normal bulb and descending duodenum Intervention: Biopsies as noted above Impression and Post Procedure Diagnosis: Endoscopy Findings: ESOPHAGUS: Tortuous esophagus with increased tertiary contractions without stricture or ring. GE junction at 30 cms, small hiatal hernia 30 to 33 cms. No esophagitis or Gutierrez's. STOMACH: Mild gastric erythema. Biopsies were obtained. Plan: Await pathology results Patient has an appointment on 07/30/21 in the GI Clinic with Merry Skelton FNP-BC. Above findings were reviewed with the patient and GERD and Hiatal Hernia handouts were given in the discharge area Surgeon: Yvonne Ferris MD Anesthesia: MAC (Sunitha Andersen CRNA) Was an Full Time Staff Interpreter used for this Procedure?: Yes Full Time Staff Interpreter: Jamal Figueroa Estimated blood loss (mL): 0 Pathology: other (A- BXS GASTRIC ANTRUM R/O H. PYLORI) Condition: stable Disposition: PACU
[2021-07-15 09:59] VITALS: BP 135/69; PULSE 72; RESP 16; TEMP 37.2; O2SAT 96
[2021-07-15 10:14] VITALS: BP 153/74; PULSE 58; RESP 18; TEMP 36.7; O2SAT 98
== END 2021-07-15 11:24 | disposition home or self-care (01) ==
PROVIDERS: PCP Internal Medicine; Visit Provider Internal Medicine Gastroenterology
PROC: 0DJ08ZZ Inspection of Upper Intestinal Tract, Via Natural or Artificial Opening Endoscopic (ICD-10-PCS; CPT 43235; principal; 2021-07-15 09:20)
DX: K21.9 Gastro-esophageal reflux disease without esophagitis (principal); K29.50 Unspecified chronic gastritis without bleeding; K22.89 Other specified disease of esophagus; K44.9 Diaphragmatic hernia without obstruction or gangrene; R73.02 Impaired glucose tolerance (oral); I82.409 Acute embolism and thrombosis of unspecified deep veins of unspecified lower extremity; E66.9 Obesity, unspecified; Z68.36 Body mass index [BMI] 36.0-36.9, adult; Z79.899 Other long term (current) drug therapy; Z88.8 Allergy status to other drugs, medicaments and biological substances; Z87.891 Personal history of nicotine dependence; Z86.16 Personal history of COVID-19
CPT/HCPCS: 43239; 88305; 88342

== ENCOUNTER → 2021-07-30 08:30 | Outpatient (BNVA) | payer OTHER, SELFPAY | PROVIDERS: PCP Internal Medicine; Referring Provider Internal Medicine; Visit Provider Nurse Practitioner Family | DX: Z13.89 Encounter for screening for other disorder (principal) ==

== ENCOUNTER → 2021-08-20 11:21 | Outpatient (BNVA) | payer OTHER, SELFPAY | PROVIDERS: PCP Internal Medicine; Visit Provider Internal Medicine | DX: S80.01XA Contusion of right knee, initial encounter (principal); S80.02XA Contusion of left knee, initial encounter; W10.9XXA Fall (on) (from) unspecified stairs and steps, initial encounter | CPT/HCPCS: 72040; 73564; 99203 ==

== ENCOUNTER → 2021-08-22 08:20 | Outpatient (BNVA) | payer OTHER, SELFPAY | PROVIDERS: PCP Internal Medicine; Visit Provider Physician Assistant Medical | DX: S80.01XA Contusion of right knee, initial encounter (principal); S80.02XA Contusion of left knee, initial encounter; W10.9XXA Fall (on) (from) unspecified stairs and steps, initial encounter | CPT/HCPCS: 99213 ==

== ENCOUNTER 2021-10-09 13:00 | Outpatient (RCR) | payer OTHER, SELFPAY ==
--- NOTE | 2021-10-04 16:25 | MHC.PT.EP ---
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 Pt is deemed an appropriate candidate to receive skilled PT in order to address her physical limitations to improve her functional ability. Frequency and Duration: The patient will be seen 2x / wk x 4 weeks. Short Term Goals: initiate HEP. Improve UE n/t sx by at least 50%. [place] Goals: I with HEP. UE Sx abolished. Full cervical B rotation achieved w/o pain. Pt will report no longer disturbed of sleep d/t cervical pain; initial: 2-3 hours disturbed. Treatment Plan: Modalities to reduce pain, spasms and effusion. Manual therapy to restore motion and function. Therapeutic exercise to improve strength and flexibility. Neuromuscular re-education for posture and balance. Therapeutic activities to return to functional activities of daily living. Electronically signed by: aQmar Campuzano PT. Please sign and return to therapist. Thank you for your referral.
--- NOTE | 2021-10-15 17:57 | MHC.PT.DC ---
[facility] [place] Office [place] Office [place] Office [address] Kristi Dominguez [address] [phone] F: [phone] F: [phone] F: [phone] F: [phone] Physical Therapy Discharge Report Diagnosis: Cervicalgia Date of Surgery: Date of Evaluation: 10/04/21 Date of Discharge: 10/15/21 Treatments to Date: 2 Cancellations to Date: 1 No Shows to Date: 2 Discharge Status: Visit Non-compliance Discharge Summary: Pt logged 2 no show apts in a row and is DC'd per [facility] attendance policy. Electronically signed by: Qamar Campuzano PT. Please sign and return to therapist. Thank you for your referral.
== END 2021-10-15 17:57 | disposition home or self-care (01) ==
LOC: HO.PTCHIC 13:00
PROVIDERS: PCP Internal Medicine; Visit Provider Internal Medicine
DX: M54.2 Cervicalgia (principal)
CPT/HCPCS: 97110; 97140; 97161

== ENCOUNTER 2022-02-06 14:29 | Outpatient (REF) | payer OTHER, SELFPAY ==
--- NOTE | ~2022-02-06 | MM_ITS ---
EXAMINATION: MM SCREENING DIGITAL BREAST TOMOSYNTHESIS, BILATERAL CLINICAL INFORMATION: Screening. Asymptomatic. The lifetime risk of breast cancer based on the Tyrer-Cuzick Model is 9.5%. COMPARISON: Mammography: June 26, 2020 and studies dating back to March 30, 2007 TECHNIQUE: Digital breast tomosynthesis is performed in both the craniocaudal and mediolateral oblique views along with computer-aided detection (CAD). Synthesized 2D images are generated from the tomosynthesis. FINDINGS: There are scattered areas of fibroglandular density (ACR BI-RADS breast composition Category b). There are no significant masses, abnormal calcifications, or other abnormalities. MM/MM tomosynthesis screening BI IMPRESSION: No significant changes from prior exam. ASSESSMENT: BI-RADS 1: Negative RECOMMENDATION: Routine annual mammography screening. This patient's information was entered into a reminder system with a target due date for their next mammogram.
== END 2022-02-06 14:30 | disposition home or self-care (01) ==
LOC: HO.MAMMO 14:29
PROVIDERS: Visit Provider Internal Medicine
DX: Z12.31 Encounter for screening mammogram for malignant neoplasm of breast (principal)
CPT/HCPCS: 77063; 77067

== ENCOUNTER 2022-03-24 13:43 | Outpatient (REF) | payer OTHER, SELFPAY ==
[2022-03-26 20:28] LABS: HPV mRNA E6/E7 rflx Not Detected (Not Detected)
== END 2022-03-24 13:44 | disposition home or self-care (01) ==
LOC: HO.LNP 13:43
PROVIDERS: Visit Provider Obstetrics & Gynecology
DX: Z01.419 Encounter for gynecological examination (general) (routine) without abnormal findings (principal); Z11.51 Encounter for screening for human papillomavirus (HPV)
CPT/HCPCS: 87624; 88142

== ENCOUNTER 2022-05-20 12:52 | Outpatient (REF) | payer OTHER, SELFPAY ==
[2022-05-20 14:17] LABS: Alanine Aminotransferase 19 U/L (0-31); Albumin Level 4.2 g/dL (3.5-5.0); Alkaline Phosphatase 114 U/L (39-117); Anion Gap 15 (12-20); Aspartate Amino Transferase 18 U/L (5-31); Bilirubin Total 0.5 mg/dL (0.0-1.0); Blood Urea Nitrogen 12 mg/dL (9-16); Calcium 9.4 mg/dL (8.4-10.2); Carbon Dioxide 27 mmol/L (22-29); Chloride 103 mmol/L (96-108); Cholesterol 184 mg/dL; Estimated Glomerular Filt Rate > 60; Glucose Fasting 104 mg/dL (60-99); HDL Cholesterol 58 mg/dL; LDL Cholesterol Calculated 109 mg/dl; Potassium 3.7 mmol/L (3.3-5.1); Sodium 141 mmol/L (135-145); Total Protein 7.8 g/dL (6.5-8.0); Triglycerides 86 mg/dL
== END 2022-05-20 12:53 | disposition home or self-care (01) ==
LOC: HO.LAB 12:52
PROVIDERS: PCP Internal Medicine; Visit Provider Internal Medicine
DX: Z00.00 Encounter for general adult medical examination without abnormal findings (principal); E78.5 Hyperlipidemia, unspecified
CPT/HCPCS: 36415; 80053; 80061

== ENCOUNTER → 2023-02-09 14:00 | Outpatient (BNV) | payer OTHER, SELFPAY | PROVIDERS: PCP Internal Medicine; Visit Provider Radiology Diagnostic Radiology | DX: Z12.31 Encounter for screening mammogram for malignant neoplasm of breast (principal) | CPT/HCPCS: 77063; 77067 ==

== ENCOUNTER 2023-02-09 14:13 | Outpatient (REF) | payer OTHER, SELFPAY | END 2023-02-09 14:14 | disposition home or self-care (01) | LOC: HO.MAMMO 14:13 | PROVIDERS: PCP Internal Medicine; Visit Provider Internal Medicine | DX: Z12.31 Encounter for screening mammogram for malignant neoplasm of breast (principal) | CPT/HCPCS: 77063; 77067 ==

== ENCOUNTER 2023-04-03 13:50 | Outpatient (AMB) | payer OTHER, SELFPAY ==
[2023-04-03 13:59] VITALS: BP 150/86; PULSE 64; O2SAT 98; BMI 36.0
--- NOTE | 2023-04-03 13:59 | MHC.PC.OV ---
Vital Signs 04/03/23 13:59 Height 5 ft 1 in Weight 190 lb 8 oz BMI 36.0 BP 150/86 H Blood Pressure Location Lt brachial Position Sitting Pulse 64 Pulse Source Pulse Oximeter Pulse Oximetry (%) 98 Oxygen Delivery Method Room Air Intake Visit Reasons: PE Intake Note: pt is here for physical. Steamship Agent Required: No Accompanied by: Self / Same As Patient Allergies citalopram Allergy (Intermediate, Verified 04/03/23 14:17) restless leg syndrome venlafaxine Adverse Reaction (Intermediate, Verified 04/03/23 14:17) abdominal pain bupropion Adverse Reaction (Mild, Verified 04/03/23 14:17) angry Medication List - Last Reconciled 04/03/23 by JANET Cruz albuterol sulfate 90 mcg/actuation 1 inh inhalation QID PRN amlodipine 5 mg PO DAILY 90 days escitalopram oxalate 10 mg PO BEDTIME 90 days famotidine (Pepcid) 20 mg PO BEDTIME fluticasone furoate-vilanterol 200-25 mcg/dose (Breo Ellipta) 1 inh inhalation DAILY 30 days Tobacco use date assessed: 05/22/22 Dental Screening Dental Screen Date: 04/03/23 Did you have a dental visit in the last 12 months?: No Did you have a dental problem in the last 6 months where you did not have access to dental care?: No Was dental information given to patient?: Patient has dentist HPI HPI Comments History of Present Illness Details 62-year-old female past medical history significant for hypertension, depression, GERD, impaired glucose tolerance asthma. Patient Dr. Lynch presents today for physical exam. Patient reports previously referred to urogynecology for history cystocele with uterine prolapse, patient reports she was never contacted for this referral. New referral entered. Patient reports previously on escitalopram 10 mg daily however this was discontinued over 6 month ago the patient was referred to counseling. Patient reports she does not time to do counseling treatment would like to re-initiate on her escitalopram. Rx sent to patient's pharmacy. Patient also reports thinning hair, complete blood work ordered to evaluate for possible thyroid problem. Patient also has left hand locking middle finger thick socks when she closes her hand, has to manually release her finger. mamogram: 01/2023 Pap smear: Follows with Dr. Poole states she had completed this year. Colonoscopy completed in 2017, recommended follow-up in 10 years. eye exam: Recommended. [facility] Medical History Cramps of lower extremity Deep vein thrombosis (DVT) Family history of thyroid disease GERD (gastroesophageal reflux disease) Impaired glucose tolerance Lab test positive for detection of COVID-19 virus Mild recurrent major depression Neck pain Obesity Surgical History History of exploratory laparotomy History of colonoscopy History of esophagogastroduodenoscopy (EGD) Family History Mother Alzheimer disease Dementia Hypertension Thyroid disease Mental health disorder Father No problems noted. 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 Vincent Cade, Raisa Gonzalez, Yg Heller and colleagues, with an educational walter from [employer]. Review of Systems Const Denies chills, Denies fatigue, Denies fever(s) and Denies poor appetite Eyes Denies no additional complaints ENT Reports Normal hearing present Card Denies chest pain, Denies syncope, Denies rapid heart rate and Denies dyspnea Resp Denies cough and Denies dyspnea GI Denies change in stool character, Denies constipation, Denies diarrhea, Denies nausea and Denies vomiting Denies urinary frequency, Denies dysuria and Denies urinary urgency Neuro Reports Normal hearing present, Denies confusion and Denies syncope Psych Denies confusion Endo Denies fatigue Physical exam (Primary Care) Vital Signs: Last Vital Signs Pulse 64 04/03/23 13:59 BP 150/86 H 04/03/23 13:59 Pulse Ox 98 04/03/23 13:59 Oxygen Delivery Method Room Air 04/03/23 13:59 BMI result Body Mass Index 36.0 Tobacco/Smoking Status: Tobacco use Status Tobacco use date assessed 05/22/22 04/03/23 14:02 Patient Tobacco Use Status Former Tobacco user 04/03/23 14:02 e-Cigarette/Vaping Use Never Used 04/03/23 14:02 Thrive Assessment: Date of Thrive Assessment Date Thrive assessed 05/22/22 04/03/23 14:02 Const General: No confusion Orientation/consciousness: No confusion HENMT Head: Yes normocephalic and Yes atraumatic Ears: external ears normal and TM's normal bilaterally General nose exam: Normal external nose present and Normal nasal mucous membranes and turbinates present Face and sinus: Yes normal facial exam and Yes sinuses nontender Mouth: moist mucous membranes Throat: Yes tonsils normal Eyes Conjunctivae: conjunctivae normal Sclerae: sclerae normal Pupils: Equal, round and reactive pupils present and Pupils normal by confrontation EOM: EOMs intact bilaterally Direct Ophthalmoscopy: normal light reflex Neck Neck: Yes no lymphadenopathy and Yes supple Thyroid: Thyroid normal Chest Chest palpation & inspection: normal inspection of the chest Resp Effort & Inspection: normal respiratory effort Auscultation: clear to auscultation bilaterally, no crackles, no rhonchi and no wheezes Cardio Rate: regular rate Rhythm: regular rhythm Peripheral pulses: radial pulses present and dorsalis pedis present GI Inspection: Yes normal to inspection Palpation (GI): Soft to palpation, nontender and No hepatosplenomegaly present Auscultation: normoactive bowel sounds Skin General skin exam: no rashes or lesions noted Neuro General: No confusion Cranial nerves: Yes Equal, round and reactive pupils present and Yes Normal hearing present Cognition (Neuro): normal cognition Gait exam (Neuro): Normal gait present Motor exam (neuro): 5/5 motor strength present throughout Deep tendon reflexes (DTR's): Right brachioradialis reflex intensity grade: 2+, Left brachioradialis reflex intensity grade: 2+, Right patellar reflex intensity grade: 2+ and Left patellar reflex intensity grade: 2+ Extrem General: No edema Right upper extremity: normal to inspection and full ROM Left upper extremity: normal to inspection and hand Details: normal capillary refill and abnormal ROM of finger (locking middle finger) Details: unable to extend Location: of the 3rd digit Assessment and Plan Assessment & Plan (1) Cystocele with uterine prolapse: Comment: Moderate cystocele central with bilateral paravaginal defect And [id number] uterine prolapse Code(s): N81.4 - Uterovaginal prolapse, unspecified Plan: New referral entered to [facility] urogynecology (2) Trigger finger: Code(s): M65.30 - Trigger finger, unspecified finger Plan: Referral entered to orthopedic hand specialist. (3) Hypertension: Code(s): I10 - Essential (primary) hypertension Qualifiers: Hypertension type: unspecified Qualified Code(s): I10 - Essential (primary) hypertension Plan: Continue on amlodipine 5 mg daily. Patient advised to follow low-salt diet and exercise Follow up with navigation nurse for blood pressure recheck. (4) Physical exam, annual: Code(s): Z00.00 - Encounter for general adult medical examination without abnormal findings Plan: Follow up in 1 year. Plan Follow up in 4 months. Orders: Orders Comprehensive Alex. Panel Fast Today I10 - Essential (primary) hypertension TSH reflex Free T4 Today Z13.29 - Encounter for screening for other suspected endocrine disorder Vitamin D 25-OH Total Today Z13.21 - Encounter for screening for nutritional disorder Complete Blood Count Auto Diff Today Z13.0 - Encounter for screening for diseases of the blood and blood-forming organs and certain disorders involving the immune mechanism Lipid Panel Today Z13.220 - Encounter for screening for lipoid disorders Referrals Urogynecology Referral N81.4 - Uterovaginal prolapse, unspecified Orthopedics Referral M65.30 - Trigger finger, unspecified finger Medications: Refilled escitalopram oxalate 10 mg PO BEDTIME 90 days 90 tabs 1RF F33.0 - Major depressive disorder, recurrent, mild Coding Level of Care Code Est Pt Prev Care 40-64y(00363) Diagnoses Cystocele with uterine prolapse N81.4 Trigger finger M65.30 Hypertension, unspecified type I10 Hypertension type: unspecified Physical exam, annual Z00.00
== END 2023-04-03 14:40 | disposition home or self-care (01) ==
PROVIDERS: PCP Internal Medicine; Visit Provider Nurse Practitioner Family
DX: N81.4 Uterovaginal prolapse, unspecified (principal); M65.30 Trigger finger, unspecified finger; I10 Essential (primary) hypertension; Z00.00 Encounter for general adult medical examination without abnormal findings
CPT/HCPCS: 99396

== ENCOUNTER 2023-08-03 16:33 | Outpatient (AMB) | payer OTHER, SELFPAY ==
--- NOTE | 2023-08-03 16:40 | A.OFFPC_ITS ---
Vital Signs 08/03/23 16:51 BP 130/80 Blood Pressure Location Lt brachial Position Sitting Intake Visit Reasons: 4mth f/u Intake Note: Telehealth 4 month follow up Precision Lens Centerer And Edger Required: No Accompanied by: Self / Same As Patient Allergies citalopram Allergy (Intermediate, Verified 08/03/23 19:13) restless leg syndrome venlafaxine Adverse Reaction (Intermediate, Verified 08/03/23 19:13) abdominal pain bupropion Adverse Reaction (Mild, Verified 08/03/23 19:13) angry Medication List - Last Reconciled 08/03/23 by Kristin Carpenter MD albuterol sulfate 90 mcg/actuation 1 inh inhalation QID PRN amlodipine 5 mg PO DAILY 90 days escitalopram oxalate 10 mg PO BEDTIME 90 days famotidine (Pepcid) 20 mg PO BEDTIME fluticasone furoate-vilanterol 200-25 mcg/dose (Breo Ellipta) 1 inh inhalation DAILY 30 days Tobacco use date assessed: 08/03/23 Dental Screening Dental Screen Date: 08/03/23 Did you have a dental visit in the last 12 months?: No Did you have a dental problem in the last 6 months where you did not have access to dental care?: No Was dental information given to patient?: Patient has dentist HPI HPI Comments History of Present Illness Details This is a 63-year-old female with hypertension, GERD, asthma and mild recurrent major depression that has tele health visit by video for follow-up on her conditions. She takes blood pressure at home and ranges from 130/80 to 140/90. She use rescue inhaler 1 to 2 times a month. GERD stable with PPIs. Depression well controlled with escitalopram. No chest pain or shortness of breath. [facility] Medical History (Updated 08/03/23 @ 16:53 by Kristin Carpenter MD) Mild recurrent major depression Neck pain Impaired glucose tolerance GERD (gastroesophageal reflux disease) Cramps of lower extremity Family history of thyroid disease Deep vein thrombosis (DVT) Lab test positive for detection of COVID-19 virus Obesity Surgical History History of exploratory laparotomy History of colonoscopy History of esophagogastroduodenoscopy (EGD) Family History Mother Alzheimer disease Dementia Hypertension Thyroid disease Mental health disorder Father No problems noted. 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 1. Little interest or pleasure in doing things: not at all 2. Feeling down, depressed, or hopeless: not at all 3. Trouble falling or staying asleep, or sleeping too much: not at all 4. Feeling tired or having little energy: not at all 5. Poor appetite or overeating: not at all 6. Feeling bad about yourself - or that you are a failure or have let yourself or your family down: not at all 7. Trouble concentrating on things, such as reading the newspaper or watching te levision: not at all 8. Moving or speaking so slowly that other people could have noticed. Or the opposite - being so fidgety or restless that you have been moving around a lot more than usual: not at all 9. Thoughts that you would be better off or of hurting yourself in some way: not at all Total score: 0 Source: Developed by Drs. Vincent Cade, Raisa Gonzalez, Yg Heller and colleagues, with an educational walter from [employer]. Thrive Questionnaire Date Thrive assessed: 08/03/23 I am a: Patient What is your living situation today?: I have a steady place to live Within the past 12 months, did the food you bought not last and you didn't have the money to get more?: Never true Within the past 12 months, did you worry whether your food would run out before you got money to buy more?: Never true Do you have trouble paying for medicines?: No Do you have trouble getting transportation to medical appointments?: No Do you have trouble paying your heating and electricity bill?: No Do you have trouble taking care of your child, family member or friend?: No Do you have trouble with day-to-day activities such as bathing, preparing meals, shopping, managing finances, etc.?: No Are you currently unemployed and looking for a job?: No Are you interested in more education?: No Please select the resources that you would like help with: None Currently or been in a relationship where the following occur: no concerns reported THRIVE Score: 0 AUDIT C Alcohol Use Questionnaire (AUDIT-C) 1. How often do you have a drink containing alcohol?: Never Total Score: 0 CRISTIANE-7 AMB Questionnaire CRISTIANE-7 Date CRISTIANE - 7 assessed: 08/03/23 Feeling nervous, anxious, or on edge: 0 = Not at all Not being able to stop or control worryin = Not at all Worrying too much about different things: 0 = Not at all Trouble relaxin = Not at all Being so restless that it is hard to sit still: 0 = Not at all Becoming easily annoyed or irritable: 0 = Not at all Feeling afraid as if something awful might happen: 0 = Not at all Total CRISTIANE-7 score (0-4 normal; 5-9 mild; 10-14 moderate; 15-21 severe): 0 Source: Developed by Drs. Vincent Cade, Raisa Gonzalez, Yg Heller and colleagues, with an educational walter from [phone]. Review of Systems Const All systems reviewed & are unremarkable except as noted in HPI and below Eyes Reports no additional complaints, Denies change in vision and Denies other visual disturbances Card Denies chest pain at rest, Denies chest pain with activity, Denies edema, Denies irregular heart rhythm, Denies claudication, Denies dyspnea, Denies dyspnea on exertion, Denies orthopnea, Denies paroxysmal nocturnal dyspnea and Denies slow heart rate Resp Denies cough, Denies dyspnea and Denies dyspnea on exertion GI Denies abdominal pain, Denies change in bowel habits, Denies excessive flatus, Denies nausea and Denies vomiting Denies urinary incontinence, Denies urinary hesitancy and Denies urinary urgency Physical exam (Primary Care) Vital Signs: Last Vital Signs BP 130/80 08/03/23 16:51 Tobacco/Smoking Status: Tobacco use Status Tobacco use date assessed 08/03/23 08/03/23 16:44 Patient Tobacco Use Status Former Tobacco user 08/03/23 16:44 e-Cigarette/Vaping Use Never Used 08/03/23 16:44 PHQ-9: PHQ-9 Score PHQ-9: Total score 0 08/03/23 16:56 Thrive Assessment: Date of Thrive Assessment Date Thrive assessed 08/03/23 08/03/23 16:44 Currently or been in a relationship where the following occur: no concerns reported Telehealth Telehealth Location of provider rendering services: practice address Location of patient: address on file Patient Identification confirmed using: Name, : Yes Telehealth method: video Patient verbally consented to treatment: Yes Patient verbally consented to billing insurance company: Yes Patient informed of any privacy concerns related to visit: Yes Minutes spent on Phone/Video with Pt.: 20 Assessment and Plan Assessment & Plan (1) Mild recurrent major depression: Code(s): F33.0 - Major depressive disorder, recurrent, mild Plan: Continue escitalopram. (2) Hypertension: Code(s): I10 - Essential (primary) hypertension Qualifiers: Hypertension type: unspecified Qualified Code(s): I10 - Essential (primary) hypertension Plan: Continue amlodipine. Blood pressure goal is equal or less than 130/80. (3) Asthma: Code(s): J45.909 - Unspecified asthma, uncomplicated Plan: Continue Anoro. Use rescue inhaler as needed. (4) GERD (gastroesophageal reflux disease): Code(s): K21.9 - Gastro-esophageal reflux disease without esophagitis Qualifiers: Esophagitis presence: without esophagitis Qualified Code(s): K21.9 - Gastro-esophageal reflux disease without esophagitis Plan: Continue Pepcid. Orders: Orders Lipid Panel Today E66.9 - Obesity, unspecified Complete Blood Count Auto Diff Today E66.9 - Obesity, unspecified Comprehensive [place]. Panel Fast Today E66.9 - Obesity, unspecified Thyroid Stimulating Hormone Today E66.9 - Obesity, unspecified Referrals DIGITAL FIELD SERVICE TECHNICIAN Referral N81.10 - Cystocele, unspecified Coding Level of Care Code Tele Est Pt Level 4 (52356) Diagnoses Mild recurrent major depression F33.0 Hypertension, unspecified type I10 Hypertension type: unspecified Asthma J45.909 Gastroesophageal reflux disease without esophagitis K21.9 Esophagitis presence: without esophagitis Time Spent (min) 20
[2023-08-03 16:51] VITALS: BP 130/80
== END 2023-08-03 17:56 | disposition home or self-care (01) ==
LOC: HO.HMGH 16:33
PROVIDERS: PCP Internal Medicine; Visit Provider Internal Medicine
DX: F33.0 Major depressive disorder, recurrent, mild (principal); I10 Essential (primary) hypertension; J45.909 Unspecified asthma, uncomplicated; K21.9 Gastro-esophageal reflux disease without esophagitis
CPT/HCPCS: 99214

== ENCOUNTER 2024-05-27 15:35 | Outpatient (AMB) | payer OTHER, SELFPAY ==
--- NOTE | 2024-05-27 15:40 | A.OFFPC_ITS ---
Vital Signs 05/27/24 15:45 Height 5 ft 1 in Weight 194 lb 6 oz BMI 36.7 BP 138/72 Blood Pressure Location Lt brachial Position Sitting Pulse 71 Pulse Source Pulse Oximeter Temp 96.9 F Temp Source Skin Pulse Oximetry (%) 99 Oxygen Delivery Method Room Air Intake Visit Reasons: Chest pain when eating Intake Note: Patient is here to follow up on Chest pain when eating. Bowling Alley Mechanic Required: No Test Boring Crew Chief: Not Required per policy Accompanied by: Self / Same As Patient Allergies citalopram Allergy (Intermediate, Verified 05/27/24 15:44) restless leg syndrome venlafaxine Adverse Reaction (Intermediate, Verified 05/27/24 15:44) abdominal pain bupropion Adverse Reaction (Mild, Verified 05/27/24 15:44) angry Tobacco use date assessed: 05/27/24 Dental Screening Dental Screen Date: 05/27/24 Did you have a dental visit in the last 12 months?: No Did you have a dental problem in the last 6 months where you did not have access to dental care?: No Was dental information given to patient?: No HPI Chest pain when eating HPI Details The patient is a 64-year-old female presenting with difficulty swallowing solid food. She describes a sensation of food becoming stuck in her chest, particularly when consuming solids, necessitating the need to chew thoroughly before swallowing. This problem has been persistent and was accompan ied by a diagnosis of a small hiatal hernia a few years ago. Although initial medication was prescribed, it provided no significant relief, and the patient discontinued its use. Recently, the sensation has intensified, with no reported vomiting but frequent acid reflux, mostly occurring at night. The patient denies any heartburn, fever, nausea, or diarrhea. There is no noted weight loss; in fact, there has been a slight weight gain. The patient has hypertension managed with amlodipine and episodic shortness of breath controlled with a Brio inhaler, which is used occasionally but was recommended for daily use. Anemia was identified in 2021, requiring follow-up. 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 She has not yet received the current year's flu or pneumonia vaccines but intends to do so. [facility] Medical History Cramps of lower extremity Deep vein thrombosis (DVT) Family history of thyroid disease GERD (gastroesophageal reflux disease) Impaired glucose tolerance Lab test positive for detection of COVID-19 virus Mild recurrent major depression Neck pain Obesity Surgical History History of exploratory laparotomy History of colonoscopy History of esophagogastroduodenoscopy (EGD) Family History Mother Alzheimer disease Dementia Hypertension Thyroid disease Mental health disorder Father No problems noted. 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 1. Little interest or pleasure in doing things: not at all 2. Feeling down, depressed, or hopeless: not at all 3. Trouble falling or staying asleep, or sleeping too much: not at all 4. Feeling tired or having little energy: not at all 5. Poor appetite or overeating: not at all 6. Feeling bad about yourself - or that you are a failure or have let yourself or your family down: not at all 7. Trouble concentrating on things, such as reading the newspaper or watching television: not at all 8. Moving or speaking so slowly that other people could have noticed. Or the opposite - being so fidgety or restless that you have been moving around a lot more than usual: not at all 9. Thoughts that you would be better off or of hurting yourself in some way: not at all Total score: 0 Depression Screening Interpretation: Negative Depression Screening Done: Yes Source: Developed by Drs. Vincent Cade, Raisa Gonzalez, Yg Heller and colleagues, with an educational walter from [employer]. Thrive Questionnaire Date Thrive assessed: 05/27/24 I am a: Patient What is your living situation today?: I have a steady place to live Within the past 12 months, did the food you bought not last and you didn't have the money to get more?: Never true Within the past 12 months, did you worry whether your food would run out before you got money to buy more?: Never true Do you have trouble paying for medicines?: No Do you have trouble getting transportation to medical appointments?: No Do you have trouble paying your heating and electricity bill?: No Do you have trouble taking care of your child, family member or friend?: No Do you have trouble with day-to-day activities such as bathing, preparing meals, shopping, managing finances, etc.?: No Are you currently unemployed and looking for a job?: No Are you interested in more education?: No Please select the resources that you would like help with: None Currently or been in a relationship where the following occur: No concerns reported THRIVE Score: 0 AUDIT C Alcohol Use Questionnaire (AUDIT-C) 1. How often do you have a drink containing alcohol?: Never Total Score: 0 CRISTIANE-7 AMB Questionnaire CRISTIANE-7 Date CRISTIANE - 7 assessed: 05/27/24 Feeling nervous, anxious, or on edge: 0 = Not at all Not being able to stop or control worryin = Not at all Worrying too much about different things: 0 = Not at all Trouble relaxin = Not at all Being so restless that it is hard to sit still: 0 = Not at all Becoming easily annoyed or irritable: 0 = Not at all Feeling afraid as if something awful might happen: 0 = Not at all Total CRISTIANE-7 score (0-4 normal; 5-9 mild; 10-14 moderate; 15-21 severe): 0 Source: Developed by Drs. Vincent Cade, Raisa Gonzalez, Yg Heller and colleagues, with an educational walter from [employer]. Physical exam (Primary Care) Vital Signs: Last Vital Signs Temp 96.9 F 05/27/24 15:45 Pulse 71 05/27/24 15:45 BP 138/72 05/27/24 15:45 Pulse Ox 99 05/27/24 15:45 Oxygen Delivery Method Room Air 05/27/24 15:45 BMI result Body Mass Index 36.7 Tobacco/Smoking Status: Tobacco use Status Tobacco use date assessed 05/27/24 05/27/24 15:49 Patient Tobacco Use Status Former Tobacco user 05/27/24 15:41 e-Cigarette/Vaping Use Never Used 05/27/24 15:41 PHQ-9: PHQ-9 Score PHQ-9: Total score 0 05/27/24 16:52 Depression Screening Interpretation: Negative Thrive Assessment: Date of Thrive Assessment Date Thrive assessed 05/27/24 05/27/24 15:49 Currently or been in a relationship where the following occur: No concerns reported Const General: alert; No acute distress Eyes Conjunctivae: conjunctivae normal Resp Auscultation: clear to auscultation bilaterally Cardio Rate: regular rate Rhythm: regular rhythm GI Inspection: Yes normal to inspection Extrem General: Yes normal to inspection and No edema Office Procedures Flu Questionnaire Does the patient have a severe egg allergy?: No Does the patient have severe life threatening allergies?: No Does the patient have a fever or illness today?: No Has the patient ever had Guillain-Bedford Syndrome?: No Has the patient ever had any past reaction to a flu shot?: No Immunizations Fluarix Triv [id number] (PF) 45 mcg (15 mcg x 3)/0.5 mL IM syringe Performing Provider: Radha Pino MD Performing Location: [facility] [place] [facility] Administered by: GHADA Clifford on 05/27/24 16:51 Dose Route Admin Location Dispensed Lot Number Expiration Date [facility] Senior Logistics Manager 0.5 mL IM Left Deltoid 0.5 mL [id number] 10/24/24 [id number] [place] VIS Given Date VIS Provided VIS Publication Date 05/27/24 Single Vaccine 20 Eligibility Eligibility Date Funding Source Not VFC Eligible 05/27/24 Private pneumoc 20-viktoriya conj-dip cr(PF) 0.5 mL IM syringe Performing Provider: Radha Pino MD Performing Location: [facility] [place] [facility] Administered by: GHADA Clifford on 05/27/24 16:51 Dose Route Admin Location Dispensed Lot Number Expiration Date [facility] Senior Logistics Manager 0.5 mL IM Left Deltoid 0.5 mL [id number] 07/26/25 [id number] WYETH/PFIZER VIS Given Date VIS Provided VIS Publication Date 05/27/24 Single Vaccine 21 Eligibility Eligibility Date Funding Source Not [facility] Eligible 05/27/24 Private Coding Level of Care Code Est Pt Level 4 (15371) Complex EM visit Add On G2211 Diagnoses Obesity E66.9 Hypertension, unspecified type I10 Hypertension type: unspecified Gastroesophageal reflux disease without esophagitis K21.9 Esophagitis presence: without esophagitis Impaired glucose tolerance R73.02 Dysphagia R13.10 Asthma J45.909 Anemia D64.9 Assessment & Plan Assessment & Plan (1) Obesity: Code(s): E66.9 - Obesity, unspecified Category: Medical (2) Hypertension: Code(s): I10 - Essential (primary) hypertension Category: Medical Qualifiers: Hypertension type: unspecified Qualified Code(s): I10 - Essential (primary) hypertension (3) GERD (gastroesophageal reflux disease): Code(s): K21.9 - Gastro-esophageal reflux disease without esophagitis Category: Medical Qualifiers: Esophagitis presence: without esophagitis Qualified Code(s): K21.9 - Gastro-esophageal reflux disease without esophagitis (4) Impaired glucose tolerance: Code(s): R73.02 - Impaired glucose tolerance (oral) Category: Medical (5) Dysphagia: Code(s): R13.10 - Dysphagia, unspecified Category: Medical (6) Asthma: Code(s): J45.909 - Unspecified asthma, uncomplicated Category: Medical (7) Anemia: Code(s): D64.9 - Anemia, unspecified Category: Medical Plan - Order urgent diagnostic tests to assess esophageal function and the possibility of strictures. - Initiate medication to manage stomach acidity, potentially increasing efficacy against symptomatic gastroesophageal reflux. - Educate about dietary modifications to minimize reflux symptoms, including avoiding spicy foods and maintaining an elevated head position during sleep. - Arrange comprehensive blood work to reassess anemia and monitor any changes from previous assessments. - Discuss the potential benefits of flu and pneumonia vaccinations, with the decision to administer these imminently based on the patient's occupational exposure and family environment. - Emphasize the importance of consistent use of prescribed medications for hypertension and asthma management. Orders: Orders [place] upper GI series Today R13.10 - Dysphagia, unspecified Lipid Panel Today E66.9 - Obesity, unspecified Thyroid Stimulating Hormone Today E66.9 - Obesity, unspecified Vitamin D 25-OH Total Today J45.909 - Unspecified asthma, uncomplicated Pneumococcal 20 Immunization Today Z23 - Encounter for immunization [place] barium swallow Today R13.10 - Dysphagia, unspecified Complete Blood Count Auto Diff Today E66.9 - Obesity, unspecified Comprehensive [place]. Panel Fast Today E66.9 - Obesity, unspecified Ferritin Today J45.909 - Unspecified asthma, uncomplicated IRON PROFILE Today J45.909 - Unspecified asthma, uncomplicated Reticulocyte Count Today J45.909 - Unspecified asthma, uncomplicated Vitamin B12 and Folate Today J45.909 - Unspecified asthma, uncomplicated Free T4 (Free Thyroxine) Today J45.909 - Unspecified asthma, uncomplicated Hemoglobin A1c Today J45.909 - Unspecified asthma, uncomplicated Influenza [id number] Immunization Today Z23 - Encounter for immunization Medications: New omeprazole 20 mg PO DAILY 30 caps 0RF J45.909 - Unspecified asthma, uncomplicated Discontinued escitalopram oxalate Discontinued Reason: Patient Completed Course 10 mg PO BEDTIME 90 days 90 tabs 1RF F33.0 - Major depressive disorder, recurrent, mild famotidine (Pepcid) Discontinued Reason: Patient Refused 20 mg PO BEDTIME 30 tabs 5RF K21.9 - Gastro-esophageal reflux disease without esophagitis
[2024-05-27 15:45] VITALS: BP 138/72; PULSE 71; TEMP 36.1; O2SAT 99; BMI 36.7
== END 2024-05-27 16:37 | disposition home or self-care (01) ==
PROVIDERS: PCP Internal Medicine; Visit Provider Internal Medicine
DX: I10 Essential (primary) hypertension (principal); E66.9 Obesity, unspecified; Z68.36 Body mass index [BMI] 36.0-36.9, adult; K21.9 Gastro-esophageal reflux disease without esophagitis; R73.02 Impaired glucose tolerance (oral); R13.10 Dysphagia, unspecified; J45.909 Unspecified asthma, uncomplicated; D64.9 Anemia, unspecified; Z23 Encounter for immunization

== ENCOUNTER → 2024-05-27 15:35 | Outpatient (BNVA) | payer OTHER, SELFPAY | PROVIDERS: PCP Internal Medicine; Visit Provider Internal Medicine | DX: E66.9 Obesity, unspecified (principal); I10 Essential (primary) hypertension; K21.9 Gastro-esophageal reflux disease without esophagitis; Z23 Encounter for immunization; R73.02 Impaired glucose tolerance (oral); R13.10 Dysphagia, unspecified; J45.909 Unspecified asthma, uncomplicated; D64.9 Anemia, unspecified | CPT/HCPCS: 90471; 90472; 90656; 90677; 96127 ==

== ENCOUNTER 2024-06-07 07:48 | Outpatient (REF) | payer OTHER, SELFPAY | END 2024-06-07 07:49 | disposition home or self-care (01) | LOC: HO.XRAY 07:48 | PROVIDERS: PCP Internal Medicine; Visit Provider Internal Medicine | DX: R13.10 Dysphagia, unspecified (principal) | CPT/HCPCS: 74246 ==

== ENCOUNTER → 2024-06-07 07:50 | Outpatient (BNV) | payer OTHER, SELFPAY | PROVIDERS: PCP Internal Medicine; Visit Provider Radiology Diagnostic Radiology | DX: R13.10 Dysphagia, unspecified (principal) | CPT/HCPCS: 74246; 74248 ==

== ENCOUNTER 2024-06-29 09:49 | Outpatient (REF) | payer OTHER, SELFPAY ==
[2024-07-05 14:44] LABS: HPV Genotype 16 Negative (Negative); HPV Genotype 18 Negative (Negative); HPV High Risk Negative (Negative)
== END 2024-06-29 09:50 | disposition home or self-care (01) ==
LOC: HO.LNP 09:49
PROVIDERS: PCP Internal Medicine; Visit Provider Obstetrics & Gynecology
DX: Z01.419 Encounter for gynecological examination (general) (routine) without abnormal findings (principal)
CPT/HCPCS: 87626; 88175

== ENCOUNTER 2024-06-29 09:49 | Outpatient (AMB) | payer OTHER, SELFPAY ==
--- NOTE | 2024-06-29 10:08 | MHC.OFFVIS ---
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 Complaining of bulge per vagina no associated urinary or GI symptoms Last Pap/HPV was negative in 03/18 Last Mammogram was BI-RADS 1 in 02/16 Last Colonoscopy was done in 01/11, the recommendation was to repeat in 10 years [facility] Medical History (Updated 06/29/24 @ 10:29 by Go Poole MD) Mild recurrent major depression Neck pain Impaired glucose tolerance GERD (gastroesophageal reflux disease) Cramps of lower extremity Family history of thyroid disease Deep vein thrombosis (DVT) Lab test positive for detection of COVID-19 virus Obesity Surgical History (Updated 06/29/24 @ 10:29 by Go Poole MD) History of cone biopsy of cervix History of exploratory laparotomy History of colonoscopy History of esophagogastroduodenoscopy (EGD) Family History Mother Alzheimer disease Dementia Hypertension Thyroid disease Mental health disorder Father No problems noted. 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 Current occupational exposures/hazards: No Cognitive needs: No Hearing needs: No Vision needs: Yes (Glasses) Female Reproductive History Menstrual Total pregnancies: 2 Full term: 1 Number of Living Children: 1 Date of last pap smear: 03/24/22 (neg pap and hpv) History of abnormal pap smear: Yes (hx cone bx 1997 per pt) Date of Mammogram: 02/09/23 Review of Systems Const All systems reviewed & are unremarkable except as noted in HPI and below Card Reports as per HPI Resp Reports as per HPI GI Reports as per HPI and Reports no additional complaints Reports as per HPI Physical Exam Vital Signs: BMI result Body Mass Index 37.0 Const General: cooperative, healthy appearing and comfortable Chest Chest palpation & inspection: normal inspection of the chest and normal palpation of entire chest wall Breast/axilla inspection: normal inspection of the breasts and normal inspection of the axillae Breast/axilla palpation: normal palpation of the breasts, normal palpation of the axillae and no axillary lymphadenopathy Resp Effort & Inspection: normal respiratory effort Auscultation: clear to auscultation bilaterally Percussion: percussion normal Cardio Palpation: normal PMI Rate: regular rate Rhythm: regular rhythm Heart sounds: no murmurs and no rubs Peripheral pulses: Peripheral pulses 2+ throughout GI Inspection: Yes normal to inspection Palpation (GI): Soft to palpation, nontender, no guarding, not rigid and No hepatosplenomegaly present Percussion: Yes normal to percussion Auscultation: normal bowel sounds Rectal Exam - Female: deferred General: Yes bladder normal to palpation External Female Exam: No lesion Speculum Exam - Vagina: normal appearance of the vagina, normal palpation, normal vaginal discharge and not erythematous Speculum Exam - Cervix: normal appearance of the cervix and normal palpation Bimanual exam- vagina & uterus: normal bimanual exam, normal palpation, uterine size normal, bladder normal to palpation, consistency normal, normal palpation and other ([id number] uterine prolapse) Bimanual Exam- Adnexa, other: normal adnexae, no masses and no tenderness Assessment & Plan Assessment & Plan (1) Well woman exam: Comment: History of cervical cone in 1997 Code(s): Z01.419 - Encounter for gynecological examination (general) (routine) without abnormal findings Category: Medical Plan: Co testing done given the history of cervical cone in 1997 Counseled the patient about the recommended dietary allowance of 1200 mg of Calcium & 600 IU of vitamin D. Mammogram ordered. The patient was instructed to perform monthly self-breast exams and schedule annual exam in a year. All questions answered and the patient verbalized understanding. (2) Uterine prolapse: Code(s): N81.4 - Uterovaginal prolapse, unspecified Category: Medical Plan: Discussed with the patient the findings on Pelvic exam; since the patient is asymptomatic, there is no need for treatment at this point. Discussed with the patient the symptoms of prolapse, when and if the patient becomes symptomatic in the future (symptoms discussed with the patient including but not limited to, bulge per vagina, back pain, etc..) will treatment. Discussed with the patient the options of treatment including pessaries vs. surgical treatment including its total vaginal hysterectomy. The patient would like to think about it and get back to us. All questions were answered , the patient verbalized understanding. Orders: Orders MM tomosynthesis screening BI Today Z12.31 - Encounter for screening mammogram for malignant neoplasm of breast Coding Level of Care Code Est Pt Level 3 (76381) Est Pt Prev Care 40-64y(64236) Diagnoses Well woman exam Z01.419 Uterine prolapse N81.4
[2024-06-29 10:09] VITALS: BP 140/82; BMI 37.0
== END 2024-06-29 10:32 | disposition home or self-care (01) ==
LOC: HO.HWS 09:49
PROVIDERS: PCP Internal Medicine; Visit Provider Obstetrics & Gynecology
DX: Z01.419 Encounter for gynecological examination (general) (routine) without abnormal findings (principal); N81.4 Uterovaginal prolapse, unspecified
CPT/HCPCS: 99213; 99396; 99459

== ENCOUNTER 2024-07-25 17:01 | Outpatient (AMB) | payer OTHER, SELFPAY ==
[2024-07-25 17:09] VITALS: BP 160/82; PULSE 67; TEMP 36.3; O2SAT 97; BMI 37.3
--- NOTE | 2024-07-25 17:09 | MHC.PC.OV ---
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 Accompanied by: Self / Same As Patient Allergies citalopram Allergy (Intermediate, Verified 06/29/24 10:14) restless leg syndrome venlafaxine Adverse Reaction (Intermediate, Verified 06/29/24 10:14) abdominal pain bupropion Adverse Reaction (Mild, Verified 06/29/24 10:14) angry Medication List - Last Reconciled 07/25/24 by Radha Pino MD albuterol sulfate 90 mcg/actuation 1 inh inhalation QID PRN amlodipine 5 mg PO DAILY 90 days fluticasone furoate-vilanterol 200-25 mcg/dose (Breo Ellipta) 1 inh inhalation DAILY 30 days omeprazole 20 mg PO DAILY Tobacco use date assessed: 05/27/24 Dental Screening Dental Screen Date: 05/27/24 [facility] Medical History (Updated 07/25/24 @ 17:16 by Radha Pino MD) Dysphagia Mild recurrent major depression Neck pain Impaired glucose tolerance GERD (gastroesophageal reflux disease) Cramps of lower extremity Family history of thyroid disease Deep vein thrombosis (DVT) Lab test positive for detection of COVID-19 virus Obesity Surgical History (Updated 06/29/24 @ 10:29 by Go Poole MD) History of cone biopsy of cervix History of exploratory laparotomy History of colonoscopy History of esophagogastroduodenoscopy (EGD) Family History Mother Alzheimer disease Dementia Hypertension Thyroid disease Mental health disorder Father No problems noted. 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 Vincent Cade, Raisa Gonzalez, Yg Heller and colleagues, with an educational walter from [employer]. Physical exam (Primary Care) Vital Signs: Last Vital Signs Temp 97.3 F 07/25/24 17:09 Pulse 67 07/25/24 17:09 BP 160/82 H 07/25/24 17:09 Pulse Ox 97 07/25/24 17:09 Oxygen Delivery Method Room Air 07/25/24 17:09 BMI result Body Mass Index 37.3 Tobacco/Smoking Status: Tobacco use Status Tobacco use date assessed 05/27/24 07/25/24 17:13 Patient Tobacco Use Status Former Tobacco user 07/25/24 17:13 e-Cigarette/Vaping Use Never Used 07/25/24 17:13 Thrive Assessment: Date of Thrive Assessment Date Thrive assessed 05/27/24 07/25/24 17:13 Const General: alert; No acute distress Eyes Conjunctivae: conjunctivae normal Resp Auscultation: clear to auscultation bilaterally Cardio Rate: regular rate Rhythm: regular rhythm GI Inspection: Yes normal to inspection Extrem General: Yes normal to inspection and No edema Coding Level of Care Code Est Pt Level 4 (38095) Diagnoses Incarcerated hiatal hernia K44.0 Asthma J45.909 Hepatic steatosis K76.0 Hypertension, unspecified type I10 Hypertension type: unspecified Assessment & Plan Assessment & Plan (1) Incarcerated hiatal hernia: Code(s): K44.0 - Diaphragmatic hernia with obstruction, without gangrene Category: Medical Plan: patient was referred to the surgeon (2) Asthma: Code(s): J45.909 - Unspecified asthma, uncomplicated Category: Medical Plan: continue with albuterol and Breo. Reminded about rinsing mouth after using Breo (3) Hepatic steatosis: Code(s): K76.0 - Fatty (change of) liver, not elsewhere classified Category: Medical Plan: low-fat diet and exercise (4) Hypertension: Code(s): I10 - Essential (primary) hypertension Category: Medical Qualifiers: Hypertension type: unspecified Qualified Code(s): I10 - Essential (primary) hypertension Plan: continue with amlodipine 5 mg once a day Plan History of Present Illness The patient is a 64-year-old female presenting with the primary reason for a follow-up of multiple chronic conditions, including a moderate non-reducible hiatal hernia. Her established history of hypertension has shown suboptimal control with amlodipine leading to discussions on dosage adjustments. Acknowledging her leg swelling, escalations in medication were cautiously approached. Asthma remains managed through albuterol and Breo, with specific instructions regarding their use imparted. Her depression, a known factor in her medical profile, is stable. Hiatal hernia findings have dictated dietary adjustments and sleep position modifications to mitigate gastric reflux. A referral to a ip paralegal underscores the need for comprehensive evaluation given the non-reducible nature of her hernia. Treatment for hepatic steatosis has not presented recent needs. Her compliance with medication such as omeprazole has delivered marginal symptomatic relief. Lifestyle and diet recommendations were reiterated to further aid her gastrointestinal symptoms. Efforts in monitoring and adjustments to her therapeutic regimen continue as part of active management. Health Maintenance - Medication adherence reinforced, particularly with anti-hypertensives and inhalers. - Lifestyle counseling on avoiding specific dietary triggers and appropriate eating habits to prevent hiatal hernia complications. - Discussed the significance of maintaining upright posture following meals and elevating the head of bed to alleviate reflux. - Reintegration of regular blood pressure monitoring into daily routine advised. Social History - Exercise: No specific regimen discussed. - Nutritional intake: Advised to avoid spicy foods, tomato products, juices, soda, and large meals to prevent exacerbation of hiatal hernia. - Functional status: Not specifically discussed. Review of Systems - Respiratory: Reports occasional asthma exacerbations using albuterol. - Gastrointestinal: Reports dysphagia and symptoms consistent with hiatal hernia. 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 Plan Multi-faceted management of the patient's conditions continues with a proposed increase in amlodipine to 10 mg to enhance blood pressure control, monitoring for any resultant leg swelling. Asthma treatment maintains with current inhalers, emphasizing lifestyle adaptations to alleviate hiatal hernia symptoms. Scheduled follow-up with gastroenterology ensures targeted intervention for her hernia. Medication adherence and monitoring remain paramount, with present strategies sustaining her psychiatric stability. Patient was informed and verbally consented to the use of an ambient scribe for clinic note documentation during this visit. Discussion Notes I discussed with the patient her moderate non-reducible hiatal hernia and the necessity of dietary adjustments and positional strategies to manage her symptoms better. We reviewed her asthma control and the importance of proper inhaler use. The decision to potentially increase amlodipine dosage for better hypertension management was detailed, alongside risks such as exacerbating leg swelling. Patient understanding and consent were secured regarding these adjustments, including the plan to consult with gastroenterology for a comprehensive assessment of her hernia. Patient Instructions - Continue current medications, including amlodipine, Breo, and albuterol, as directed. - Avoid foods that exacerbate hiatal hernia symptoms, such as spicy and acidic fare. - Maintain a gap of at least four hours between meals and lying down. - Use multiple pillows to elevate the head of the bed. - Monitor blood pressure regularly and report significant changes. - Anticipate follow-up from gastroenterology for further management of hernia. - Should any symptoms worsen or new concerns arise, promptly schedule a follow-up appointment. Orders: Referrals Gastroenterology Referral K44.0 - Diaphragmatic hernia with obstruction, without gangrene Medications: Changed From amlodipine 5 mg PO DAILY 90 days 90 tabs 0RF I10 - Essential (primary) hypertension To amlodipine 10 mg PO DAILY 90 days 90 tabs 1RF I10 - Essential (primary) hypertension
[2024-07-25 17:26] VITALS: BP 152/80
== END 2024-07-25 17:33 | disposition home or self-care (01) ==
LOC: HO.HMCH 17:02
PROVIDERS: PCP Internal Medicine; Visit Provider Internal Medicine
DX: K44.0 Diaphragmatic hernia with obstruction, without gangrene (principal); J45.909 Unspecified asthma, uncomplicated; K76.0 Fatty (change of) liver, not elsewhere classified; I10 Essential (primary) hypertension

== ENCOUNTER → 2024-07-25 17:01 | Outpatient (BNVA) | payer OTHER, SELFPAY | PROVIDERS: PCP Internal Medicine; Visit Provider Internal Medicine ==

== ENCOUNTER 2024-08-19 08:56 | Outpatient (REF) | payer OTHER, SELFPAY ==
[2024-08-19 09:07] LABS: MANUAL DIFF FLAG NO
[2024-08-19 09:49] LABS: Basophils Absolute Auto 0.1 X10*3/uL (0.0-0.2); Basophils Percent Auto 0.6 % (0-2); Eosinophils Absolute Auto 0.3 X10*3/uL (0.0-0.4); Eosinophils Percent Auto 2.9 % (0-4); Hematocrit 37.4 % (37.0-47.0); Hemoglobin 11.9 g/dl (12.0-16.0); Imm Gran Abs Auto 0.05 X10*3/uL (0.00-0.03); Imm Gran Pct Auto 0.6 % (0.0-0.4); Immature Retic Fraction 9.5 % (3.0-15.9); Lymphocytes Absolute Auto 2.9 X10*3/uL (1.2-4.9); Lymphocytes Percent Auto 33.7 % (20-40); Mean Corpuscular HGB Conc 31.8 g/dl (31.0-35.0); Mean Corpuscular Hemoglobin 26.4 pg (27.0-33.0); Mean Corpuscular Volume 82.9 fL (80.0-98.0); Mean Platelet Volume 9.1 fL (9.4-12.3); Monocytes Absolute Auto 0.5 X10*3/uL (0.1-1.2); Monocytes Percent Auto 5.4 % (2-11); Neutrophils Percent Auto 56.8 % (45-73); Platelet Count 242 X10*3/uL (160-400); Red Blood Count 4.51 X10*6/uL (4.20-5.50); Red Cell Distribution Width 13.7 % (11.0-16.0); Retic HGB Equivalent 28.3 pg (30.0-35.0); Reticulocyte Percent 1.3 % (0.5-1.8); Reticulocytes Absolute 0.059 X10*6/uL (0.026-0.095); White Blood Count 8.7 X10*3/uL (4.8-10.8)
[2024-08-19 09:58] LABS: Estimated Average Glucose 154 mg/dL; Hemoglobin A1C 165.4473 umol/L; Total Hemoglobin (HGBA1C) 3144.1576 umol/L
[2024-08-19 10:38] LABS: Alanine Aminotransferase 35 U/L (0-31); Albumin Level 4.2 g/dL (3.5-5.0); Alkaline Phosphatase 98 U/L (39-117); Anion Gap 9 (12-20); Aspartate Amino Transferase 26 U/L (5-31); Bilirubin Total 0.3 mg/dL (0.0-1.0); Blood Urea Nitrogen 12 mg/dL (9-16); Calcium 9.2 mg/dL (8.4-10.2); Carbon Dioxide 28 mmol/L (22-29); Chloride 105 mmol/L (96-108); Cholesterol 158 mg/dL (<200); Estimated Glomerular Filt Rate > 60; Glucose Fasting 153 mg/dL (60-99); HDL Cholesterol 47 mg/dL (>40); Iron 64 mcg/dL (30-160); LDL Cholesterol Calculated 95 mg/dL (<100); Percent Iron Saturation 24 % (15-50); Potassium 3.5 mmol/L (3.3-5.1); Sodium 138 mmol/L (135-145); Total Iron Binding Capacity 272 mcg/dL (228-428); Total Protein 8.1 g/dL (6.5-8.0); Triglycerides 82 mg/dL (<150); Unsaturated Iron Binding 208 ug/dL
[2024-08-19 10:58] LABS: Ferritin 50 ng/mL (10-250); Free T4 (Free Thyroxine) 0.98 ng/dL (0.71-1.85); Vitamin D 25-OH Total 23.2 ng/mL (>30)
[2024-08-19 10:59] LABS: Folate 12.4 ng/mL (> or = 4.0); Vitamin B12 641 pg/mL (200-900)
== END 2024-08-19 08:57 | disposition home or self-care (01) ==
LOC: HO.LAB 08:56
PROVIDERS: PCP Internal Medicine; Visit Provider Internal Medicine
DX: E66.9 Obesity, unspecified (principal); J45.909 Unspecified asthma, uncomplicated
CPT/HCPCS: 36415; 80053; 80061; 82306; 82607; 82728; 82746; 83036; 83540; 84439; 84443; 85025; 85045

== ENCOUNTER 2024-08-26 09:25 | Outpatient (REF) | payer OTHER, SELFPAY | END 2024-08-26 09:26 | disposition home or self-care (01) | LOC: HO.XRAY 09:25 | PROVIDERS: PCP Internal Medicine; Visit Provider Internal Medicine | DX: Z13.89 Encounter for screening for other disorder (principal) ==

== ENCOUNTER 2024-09-05 08:47 | Outpatient (AMB) | payer OTHER, SELFPAY ==
--- NOTE | 2024-09-05 08:53 | MHC.OFFVISWM ---
VS Expanded 09/05/24 09:04 BP 191/75 H Blood Pressure Location Rt brachial Blood Pressure Position Sitting Pulse 72 Pulse Source Pulse Oximeter Temp 96.1 F L Temperature Source Temporal Artery Scan Pulse Oximetry 96 Oxygen Delivery Method Room Air Height 5 ft 1 in Weight 195 lb BMI 36.8 Body Fat % 47.3 Body Fat Mass 92.2 Fat Free Mass 102.8 Visceral Fat Rating 15.0 Body Water % 37.2 Body Water Mass 72.6 Muscle Mass/Score 97.4 Basal Metabolic Rate/Score 1,449 Intake Visit Reasons: OV Hiatal Hernia - RASHAWN Khan Ref. Allergies citalopram Allergy (Intermediate, Verified 09/05/24 09:55) restless leg syndrome venlafaxine Adverse Reaction (Intermediate, Verified 09/05/24 09:55) abdominal pain bupropion Adverse Reaction (Mild, Verified 09/05/24 09:55) angry Medication List - Last Reconciled 09/05/24 by Berry Alex MD albuterol sulfate 90 mcg/actuation 1 inh inhalation QID PRN amlodipine 10 mg PO DAILY 90 days fluticasone furoate-vilanterol 200-25 mcg/dose (Breo Ellipta) 1 inh inhalation DAILY 30 days omeprazole 20 mg PO DAILY HPI Comments Details: Was referred for persistent GERD despite PPI use and a moderate size diaphragmatic hernia Wakes up: 7am, Sleeps: 12am Breakfast: 9am (bread with cheese) Lunch: 2pm (soups) Dinner: 8pm (chicken, beef, salad) Snacks: 11am (Doritos), 4pm (Doritos) Exercise: has access to a treadmill Beverages: Coffee: 1 cup/d (cream and sugar), tea: 3/wk (1 cup/d with sugar), Soda: Regular Coke 2/wk, juice/ETOH: none PFSH Medical History (Updated 09/05/24 @ 09:58 by Berry Alex MD) Diabetes Dysphagia Mild recurrent major depression Neck pain Impaired glucose tolerance GERD (gastroesophageal reflux disease) Cramps of lower extremity Family history of thyroid disease Deep vein thrombosis (DVT) Lab test positive for detection of COVID-19 virus Obesity Surgical History History of cone biopsy of cervix History of exploratory laparotomy History of colonoscopy History of esophagogastroduodenoscopy (EGD) Family History Mother Alzheimer disease Dementia Hypertension Thyroid disease Mental health disorder Father No problems noted. 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 Current occupational exposures/hazards: No Cognitive needs: No Hearing needs: No Vision needs: Yes (Glasses) Physical Exam Vital Signs: Last Vital Signs Temp 96.1 F L 09/05/24 09:04 Pulse 72 09/05/24 09:04 BP 191/75 H 09/05/24 09:04 Pulse Ox 96 09/05/24 09:04 Oxygen Delivery Method Room Air 09/05/24 09:04 BMI result Body Mass Index 36.8 GI Inspection: Yes normal to inspection (Android body habitus), Yes incision (well healed) and Yes obesity Palpation (GI): Soft to palpation Extrem Right lower extremity: normal to inspection Left lower extremity: normal to inspection Assessment & Plan Assessment & Plan (1) Obesity: Code(s): E66.9 - Obesity, unspecified Category: Medical Qualifiers: Obesity type: due to excess calories Obesity classification: adult class 2 (BMI 35 - 39.9) Serious obesity comorbidity presence: with serious comorbidity Body mass index: BMI 36.0-36.9 Qualified Code(s): E66.812 - Obesity, class 2; E66.01 - Morbid (severe) obesity due to excess calories; Z68.36 - Body mass index [BMI] 36.0-36.9, adult Plan: 1.? Plan for lap sleeve gastrectomy to address the weight issue and improve her comorbidities and particularly the diabetes. At the same time, as we discussed I will repair the diaphragmatic to address the GERD. Both of these will be repaired laparoscopically. I emphasized the importance of close follow-up, adherence to instructions and good communication. The surgery does not replace the need to change your lifestlyle which is the cause of the obesity problem. The surgery provides the motivation to try again to change your lifestyle, it reduces the appetite and make the transition to a better lifestyle easier and doubles the amount of weight you would lose compared to doing the lifestyle change without the surgery. You will need to be on a liquid diet with protein shakes for 2 weeks before surgery to maximize weight loss and boost your nutritional status to recover better from surgery and also for the first two weeks after surgery to let the stomach heal before we introduce other foods. After the first 2 weeks we will introduce protein bars and soft foods like scrambled eggs, cottage cheese and yogurt and after the 6th week will introduce meat, fish and cooked vegetables in small amounts. Over time you should be able to eat everything in small amounts. Side effects like nausea, vomiting, heartburn or abdominal pain are not common in the practice unless you are not following in the practice. This operation requires lifetime commitment to following in our practice and communication with me. You will much less weight and experience side effects if you don?t communicate or not following in the practice. Complications are rare and in our practice is about 1/10 of the national average. However, you can develop bleeding that may require transfusion (hasn?t happened for year in the practice), you may from complications (we did not have any deaths in the practice) and infections. Infections are usually a result of breakdown in communication or not understanding or following directions correctly. They are difficult to treat, they can happen during the first 6 weeks, they may require to be in the hospital for weeks or even months, not being able to eat by mouth and you may have drains and surgeries to try and correct the issue. Other risks and complications include possible conversion to an open procedure, leaks, small bowel obstruction, blood clots, cardiac, or pulmonary complications, as penitentiary complications such as ulcers, insufficient weight loss and vitamin deficiencies. 2. Nutritional counseling. Start with one CELEBRATE REBUILD protein (buy at hospital[facility] gift [facility]) shake (HALF scoop in 8oz low fat unsweetened almond milk each) at 8am-10am, 1 protein bar (CELEBRATE protein bars, buy at [facility] gift shop) at 11am-1pm, one CELEBRATE REBUILD protein shake (HALF scoop in 8oz low fat unsweetened almond milk each) at 2pm-4pm, dinner at 5pm (6 forks of protein and 6 forks of salad/vegetables), one more protein bar after dinner at 7pm-9pm and one more one CELEBRATE REBUILD protein shake (HALF scoop in 8oz low fat unsweetened almond milk each) at So you do 3 protein shakes, 2 protein bars and one meal per day. Meal to include lean meat (beef, fish, pork, turkey, chicken), or irish yogurt, or egg whites, or beans with a salad with olive oil and fruits (berries, pears, apples, kiwi). Avoid salt, breads, potatoes, rice, pasta, desserts. 3. Each shake would be drunk slowly, like coffee in a period of 2 hours. 4. Cut each bar in 4 pieces and eat each piece in 30min ?to make each bar last 2 hours. 5. I emphasized the importance of measuring accurately the food portion and measure it when serving the food in plate 6. The meal portions include 6 full-size forks of meat and 6 full-size forks of salad. You always eat the meat portion but you can replace up to 3 forks for salad/vegetables with rice, potatoes or pasta, or a fruit ?if you like. The less you do it the better weight loss will be. 7. One full-size fork is what it can be scooped on the fork without falling aside and not what can be bit with the fork. Use regular forks like those you find in a typical restaurant. 8.? Please buy the body composition scale we discussed and send me weight measurements as soon as possible and then once a week. Always include your diet and exercise plan. 9. Start treadmill with an incline of 2.0 and speed of 3.0. Increase incline by 1 every 3 min to a max incline of 8.0, stay 3min at 8.0 and then return to 2.0 and repeat same steps until calorie goal is met. Goal is to burn 2000 calories per week on exercise, which means either 300 calories daily. 10. Goal is to lose at least 1.5-2lbs per week 11. Goal to lose 10% of your weight before surgery, which is about 20lbs. Ultimate weight goal: 175lbs before surgery 12. Please follow the diet plan exactly without any change. If you don't like something about the plan or you feel hungry you need to communicate with me so I can help you revise the plan. You should not change the plan yourself 13. To be scheduled for EGD to assess the stomach's anatomy and the size of the diaphragmatic hernia as well presence of esophagitis due to GERD. The possibility of biopsies was discussed. Patient needs to avoid use of NSAIDs and aspirin for 1 week prior to EGD. You must be on liquids only the day before your endoscopy. Risks of perforation and bleeding was discussed with the patient. This will be an outpatient procedure with IV sedation. Orders: Orders Complete Blood Count Auto Diff Today E11.9 - Type 2 diabetes mellitus without complications, E66.9 - Obesity, unspecified, K21.9 - Gastro-esophageal reflux disease without esophagitis, K44.0 - Diaphragmatic hernia with obstruction, without gangrene, Z68.36 - Body mass index [BMI] 36.0-36.9, adult Lipid Panel Today E11.9 - Type 2 diabetes mellitus without complications, E66.9 - Obesity, unspecified, K21.9 - Gastro-esophageal reflux disease without esophagitis, K44.0 - Diaphragmatic hernia with obstruction, without gangrene, Z68.36 - Body mass index [BMI] 36.0-36.9, adult IRON PROFILE Today E11.9 - Type 2 diabetes mellitus without complications, E66.9 - Obesity, unspecified, K21.9 - Gastro-esophageal reflux disease without esophagitis, K44.0 - Diaphragmatic hernia with obstruction, without gangrene, Z68.36 - Body mass index [BMI] 36.0-36.9, adult Comprehensive Met. Panel Today E11.9 - Type 2 diabetes mellitus without complications, E66.9 - Obesity, unspecified, K21.9 - Gastro-esophageal reflux disease without esophagitis, K44.0 - Diaphragmatic hernia with obstruction, without gangrene, Z68.36 - Body mass index [BMI] 36.0-36.9, adult Ferritin Today E11.9 - Type 2 diabetes mellitus without complications, E66.9 - Obesity, unspecified, K21.9 - Gastro-esophageal reflux disease without esophagitis, K44.0 - Diaphragmatic hernia with obstruction, without gangrene, Z68.36 - Body mass index [BMI] 36.0-36.9, adult US abdomen comp w elastography Today E11.9 - Type 2 diabetes mellitus without complications, E66.9 - Obesity, unspecified, K21.9 - Gastro-esophageal reflux disease without esophagitis, K44.0 - Diaphragmatic hernia with obstruction, without gangrene, Z68.36 - Body mass index [BMI] 36.0-36.9, adult XR chest 2V Today E11.9 - Type 2 diabetes mellitus without complications, E66.9 - Obesity, unspecified, K21.9 - Gastro-esophageal reflux disease without esophagitis, K44.0 - Diaphragmatic hernia with obstruction, without gangrene, Z68.36 - Body mass index [BMI] 36.0-36.9, adult ECG 12 lead EKG Today E11.9 - Type 2 diabetes mellitus without complications, E66.9 - Obesity, unspecified, K21.9 - Gastro-esophageal reflux disease without esophagitis, K44.0 - Diaphragmatic hernia with obstruction, without gangrene, Z68.36 - Body mass index [BMI] 36.0-36.9, adult Insulin Today E11.9 - Type 2 diabetes mellitus without complications, E66.9 - Obesity, unspecified, K21.9 - Gastro-esophageal reflux disease without esophagitis, K44.0 - Diaphragmatic hernia with obstruction, without gangrene, Z68.36 - Body mass index [BMI] 36.0-36.9, adult Hemoglobin A1c Today E11.9 - Type 2 diabetes mellitus without complications, E66.9 - Obesity, unspecified, K21.9 - Gastro-esophageal reflux disease without esophagitis, K44.0 - Diaphragmatic hernia with obstruction, without gangrene, Z68.36 - Body mass index [BMI] 36.0-36.9, adult H Pylori Breath Test Today E11.9 - Type 2 diabetes mellitus without complications, E66.9 - Obesity, unspecified, K21.9 - Gastro-esophageal reflux disease without esophagitis, K44.0 - Diaphragmatic hernia with obstruction, without gangrene, Z68.36 - Body mass index [BMI] 36.0-36.9, adult Vitamin B12 and Folate Today E11.9 - Type 2 diabetes mellitus without complications, E66.9 - Obesity, unspecified, K21.9 - Gastro-esophageal reflux disease without esophagitis, K44.0 - Diaphragmatic hernia with obstruction, without gangrene, Z68.36 - Body mass index [BMI] 36.0-36.9, adult Zinc Today E11.9 - Type 2 diabetes mellitus without complications, E66.9 - Obesity, unspecified, K21.9 - Gastro-esophageal reflux disease without esophagitis, K44.0 - Diaphragmatic hernia with obstruction, without gangrene, Z68.36 - Body mass index [BMI] 36.0-36.9, adult C Reactive Protein Today E11.9 - Type 2 diabetes mellitus without complications, E66.9 - Obesity, unspecified, K21.9 - Gastro-esophageal reflux disease without esophagitis, K44.0 - Diaphragmatic hernia with obstruction, without gangrene, Z68.36 - Body mass index [BMI] 36.0-36.9, adult Vitamin B1 Today E11.9 - Type 2 diabetes mellitus without complications, E66.9 - Obesity, unspecified, K21.9 - Gastro-esophageal reflux disease without esophagitis, K44.0 - Diaphragmatic hernia with obstruction, without gangrene, Z68.36 - Body mass index [BMI] 36.0-36.9, adult Vitamin A Today E11.9 - Type 2 diabetes mellitus without complications, E66.9 - Obesity, unspecified, K21.9 - Gastro-esophageal reflux disease without esophagitis, K44.0 - Diaphragmatic hernia with obstruction, without gangrene, Z68.36 - Body mass index [BMI] 36.0-36.9, adult TSH reflex Free T4 Today E11.9 - Type 2 diabetes mellitus without complications, E66.9 - Obesity, unspecified, K21.9 - Gastro-esophageal reflux disease without esophagitis, K44.0 - Diaphragmatic hernia with obstruction, without gangrene, Z68.36 - Body mass index [BMI] 36.0-36.9, adult Vitamin D 25-OH Total Today E11.9 - Type 2 diabetes mellitus without complications, E66.9 - Obesity, unspecified, K21.9 - Gastro-esophageal reflux disease without esophagitis, K44.0 - Diaphragmatic hernia with obstruction, without gangrene, Z68.36 - Body mass index [BMI] 36.0-36.9, adult Referrals Nutrition/Dietitian Referral E11.9 - Type 2 diabetes mellitus without complications, E66.9 - Obesity, unspecified, K21.9 - Gastro-esophageal reflux disease without esophagitis, K44.0 - Diaphragmatic hernia with obstruction, without gangrene, Z68.36 - Body mass index [BMI] 36.0-36.9, adult Behavioral Health Referral E11.9 - Type 2 diabetes mellitus without complications, E66.9 - Obesity, unspecified, K21.9 - Gastro-esophageal reflux disease without esophagitis, K44.0 - Diaphragmatic hernia with obstruction, without gangrene, Z68.36 - Body mass index [BMI] 36.0-36.9, adult
[2024-09-05 09:04] VITALS: BP 191/75; PULSE 72; TEMP 35.6; O2SAT 96; BMI 36.8
== END 2024-09-05 10:16 | disposition home or self-care (01) ==
LOC: HO.HBS 08:48
PROVIDERS: PCP Internal Medicine; Visit Provider Surgery
DX: E66.812 Obesity, class 2 (principal); E66.01 Morbid (severe) obesity due to excess calories; Z68.36 Body mass index [BMI] 36.0-36.9, adult
CPT/HCPCS: 99204

== ENCOUNTER → 2024-09-05 08:47 | Outpatient (BNVA) | payer OTHER, SELFPAY | PROVIDERS: PCP Internal Medicine; Visit Provider Surgery ==

== ENCOUNTER 2024-09-12 16:26 | Outpatient (REF) | payer OTHER, SELFPAY | END 2024-09-12 16:27 | disposition home or self-care (01) | LOC: HO.MAMMO 16:26 | PROVIDERS: PCP Internal Medicine; Visit Provider Obstetrics & Gynecology | DX: Z12.31 Encounter for screening mammogram for malignant neoplasm of breast (principal) | CPT/HCPCS: 77063; 77067 ==

== ENCOUNTER → 2024-09-12 16:30 | Outpatient (BNV) | payer OTHER, SELFPAY | PROVIDERS: PCP Internal Medicine; Visit Provider Internal Medicine | DX: Z12.31 Encounter for screening mammogram for malignant neoplasm of breast (principal) | CPT/HCPCS: 77063; 77067 ==

== ENCOUNTER 2024-09-17 09:15 | Outpatient (REF) | payer OTHER, SELFPAY ==
--- NOTE | ~2024-09-17 | XR_ITS ---
CLINICAL HISTORY: E66.9 - Obesity, unspecified 2 view chest x-ray Comparison: None Findings: The lungs are clear. Moderate hiatal hernia. Normal size heart. No acute fracture. IMPRESSION: 1. No acute findings. This document has been electronically signed by: Linda Nichols MD on 09/20/2024 09:02:16
[2024-09-17 10:25] LABS: Basophils Absolute Auto 0.1 X10*3/uL (0.0-0.2); Basophils Percent Auto 0.9 % (0-2); Eosinophils Absolute Auto 0.2 X10*3/uL (0.0-0.4); Eosinophils Percent Auto 2.2 % (0-4); Hematocrit 38.3 % (37.0-47.0); Hemoglobin 12.2 g/dl (12.0-16.0); Imm Gran Abs Auto 0.05 X10*3/uL (0.00-0.03); Imm Gran Pct Auto 0.5 % (0.0-0.4); Lymphocytes Absolute Auto 2.9 X10*3/uL (1.2-4.9); Lymphocytes Percent Auto 31.3 % (20-40); MANUAL DIFF FLAG NO; Mean Corpuscular HGB Conc 31.9 g/dl (31.0-35.0); Mean Corpuscular Hemoglobin 26.5 pg (27.0-33.0); Mean Corpuscular Volume 83.3 fL (80.0-98.0); Monocytes Absolute Auto 0.6 X10*3/uL (0.1-1.2); Monocytes Percent Auto 6.2 % (2-11); Neutrophils Absolute Auto 5.5 x10*3/uL (2.0-8.3); Neutrophils Percent Auto 58.9 % (45-73); Platelet Count 253 X10*3/uL (160-400); Red Cell Distribution Width 14.2 % (11.0-16.0); White Blood Count 9.4 X10*3/uL (4.8-10.8)
[2024-09-17 10:36] LABS: Estimated Average Glucose 151 mg/dL; Hemoglobin A1c % 6.9 % (<6.0)
[2024-09-17 10:57] LABS: Alanine Aminotransferase 23 U/L (0-31); Albumin Level 4.3 g/dL (3.5-5.0); Alkaline Phosphatase 107 U/L (39-117); Anion Gap 11 (12-20); Aspartate Amino Transferase 21 U/L (5-31); Bilirubin Total 0.3 mg/dL (0.0-1.0); Blood Urea Nitrogen 13 mg/dL (9-16); C Reactive Protein 0.84 mg/dL (< or = 0.50); Calcium 9.3 mg/dL (8.4-10.2); Carbon Dioxide 28 mmol/L (22-29); Chloride 105 mmol/L (96-108); Cholesterol 175 mg/dL (<200); Estimated Glomerular Filt Rate > 60; Glucose Random 144 mg/dL (60-115); HDL Cholesterol 56 mg/dL (>40); Iron 44 mcg/dL (30-160); LDL Cholesterol Calculated 104 mg/dL (<100); Percent Iron Saturation 15 % (15-50); Potassium 3.9 mmol/L (3.3-5.1); Sodium 140 mmol/L (135-145); Total Iron Binding Capacity 288 mcg/dL (228-428); Total Protein 8.2 g/dL (6.5-8.0); Triglycerides 79 mg/dL (<150); Unsaturated Iron Binding 244 ug/dL
[2024-09-17 11:15] LABS: Ferritin 45 ng/mL (10-250); Vitamin D 25-OH Total 21.2 ng/mL (>30)
[2024-09-17 11:31] LABS: Folate 11.9 ng/mL (> or = 4.0); Vitamin B12 542 pg/mL (200-900)
[2024-09-17 11:35] LABS: Insulin 16 uU/mL (2-29)
[2024-09-20 13:58] LABS: Zinc 87 mcg/dL (60-130)
[2024-09-20 16:44] LABS: Vitamin A 36 mcg/dL (38-98)
[2024-09-23 06:19] LABS: Vitamin B1 8 nmol/L (8-30)
== END 2024-09-17 09:16 | disposition home or self-care (01) ==
LOC: HO.LAB 09:15
PROVIDERS: PCP Internal Medicine; Visit Provider Surgery
DX: E66.9 Obesity, unspecified (principal); Z68.36 Body mass index [BMI] 36.0-36.9, adult; K21.9 Gastro-esophageal reflux disease without esophagitis; K44.0 Diaphragmatic hernia with obstruction, without gangrene; E11.9 Type 2 diabetes mellitus without complications
CPT/HCPCS: 36415; 71046; 80053; 80061; 82306; 82607; 82728; 82746; 83036; 83525; 83540; 84425; 84443; 84590; 84630; 85025; 86140

== ENCOUNTER → 2024-09-17 09:49 | Outpatient (BNV) | payer OTHER, SELFPAY | PROVIDERS: PCP Internal Medicine; Visit Provider Radiology Diagnostic Radiology | DX: E66.9 Obesity, unspecified (principal) | CPT/HCPCS: 71046 ==

== ENCOUNTER 2024-10-17 16:14 | Outpatient (AMB) | payer OTHER, SELFPAY ==
[2024-10-17 16:16] VITALS: BP 158/88; PULSE 73; TEMP 36.5; O2SAT 96; BMI 36.1
--- NOTE | 2024-10-17 16:16 | A.OFFPC_ITS ---
Vital Signs 10/17/24 16:16 10/17/24 16:28 Height 5 ft 1 in Weight 191 lb BMI 36.1 BP 158/88 H 160/70 H Blood Pressure Location Lt brachial Lt brachial Position Sitting Sitting Pulse 73 Pulse Source Pulse Oximeter Temp 97.7 F Temp Source Temporal Artery Scan Pulse Oximetry (%) 96 Oxygen Delivery Method Room Air Intake Visit Reasons: hypertension, nonreducible hiatal hernia, GERD Allergies citalopram Allergy (Intermediate, Verified 10/17/24 16:19) restless leg syndrome venlafaxine Adverse Reaction (Intermediate, Verified 10/17/24 16:19) abdominal pain bupropion Adverse Reaction (Mild, Verified 10/17/24 16:19) angry Medication List - Last Reconciled 10/17/24 by Radha Pino MD albuterol sulfate 90 mcg/actuation 1 inh inhalation QID PRN amlodipine 10 mg PO DAILY 90 days cholecalciferol (vitamin D3) 125 mcg PO DAILY fluticasone furoate-vilanterol 200-25 mcg/dose (Breo Ellipta) 1 inh inhalation DAILY 30 days lisinopril 5 mg PO DAILY vitamin A palmitate 3,000 mcg PO DAILY Tobacco use date assessed: 10/17/24 Dental Screening Dental Screen Date: 10/17/24 Did you have a dental visit in the last 12 months?: No Did you have a dental problem in the last 6 months where you did not have access to dental care?: No Was dental information given to patient?: No PFSH Medical History (Updated 10/17/24 @ 16:23 by Radha Pino MD) Dyspnea on exertion Impaired glucose tolerance Diabetes Dysphagia Mild recurrent major depression Neck pain GERD (gastroesophageal reflux disease) Cramps of lower extremity Family history of thyroid disease Deep vein thrombosis (DVT) Lab test positive for detection of COVID-19 virus Obesity Surgical History History of cone biopsy of cervix History of exploratory laparotomy History of colonoscopy History of esophagogastroduodenoscopy (EGD) Family History Mother Alzheimer disease Dementia Hypertension Thyroid disease Mental health disorder Father No problems noted. 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 1. Little interest or pleasure in doing things: several days 2. Feeling down, depressed, or hopeless: several days 3. Trouble falling or staying asleep, or sleeping too much: not at all 4. Feeling tired or having little energy: several days 5. Poor appetite or overeating: not at all 6. Feeling bad about yourself - or that you are a failure or have let yourself or your family down: not at all 7. Trouble concentrating on things, such as reading the newspaper or watching television: several days 8. Moving or speaking so slowly that other people could have noticed. Or the opposite - being so fidgety or restless that you have been moving around a lot more than usual: not at all 9. Thoughts that you would be better off or of hurting yourself in some way: not at all Total score: 4 Source: Developed by Drs. Vincent Cade, Raisa Gonzalez, Yg Heller and colleagues, with an educational walter from [employer]. Thrive Questionnaire Date Thrive assessed: 05/27/24 I am a: Patient What is your living situation today?: I have a steady place to live Within the past 12 months, did the food you bought not last and you didn't have the money to get more?: Sometimes True Within the past 12 months, did you worry whether your food would run out before you got money to buy more?: I choose not to answer this question Do you have trouble paying for medicines?: No Do you have trouble getting transportation to medical appointments?: No Do you have trouble paying your heating and electricity bill?: Yes Do you have trouble taking care of your child, family member or friend?: Yes Do you have trouble with day-to-day activities such as bathing, preparing meals, shopping, managing finances, etc.?: No Are you currently unemployed and looking for a job?: Yes Are you interested in more education?: No Please select the resources that you would like help with: Utilities Currently or been in a relationship where the following occur: I choose not to answer THRIVE Score: 2 AUDIT C Alcohol Use Questionnaire (AUDIT-C) 1. How often do you have a drink containing alcohol?: Never 3. How often do you have six or more drinks on one occasion?: Never Total Score: 0 CRISTIANE-7 AMB Questionnaire CRISTIANE-7 Date CRISTIANE - 7 assessed: 05/27/24 Feeling nervous, anxious, or on edge: 1 = Several days Not being able to stop or control worryin = Several days Worrying too much about different things: 1 = Several days Trouble relaxin = More than half the days Being so restless that it is hard to sit still: 0 = Not at all Becoming easily annoyed or irritable: 1 = Several days Feeling afraid as if something awful might happen: 1 = Several days Total CRISTIANE-7 score (0-4 normal; 5-9 mild; 10-14 moderate; 15-21 severe): 7 Source: Developed by Drs. Vincent Cade, Raisa Gonzalez, Yg Heller and colleagues, with an educational walter from [employer]. Physical exam (Primary Care) Vital Signs: Last Vital Signs Temp 97.7 F 10/17/24 16:16 Pulse 73 10/17/24 16:16 BP 158/88 H 10/17/24 16:16 Pulse Ox 96 10/17/24 16:16 Oxygen Delivery Method Room Air 10/17/24 16:16 BMI result Body Mass Index 36.1 Tobacco/Smoking Status: Tobacco use Status Tobacco use date assessed 10/17/24 10/17/24 16:22 Patient Tobacco Use Status Former Tobacco user 10/17/24 16:22 e-Cigarette/Vaping Use Never Used 10/17/24 16:22 PHQ-9: PHQ-9 Score PHQ-9: Total score 4 10/17/24 16:22 Thrive Assessment: Date of Thrive Assessment Date Thrive assessed 05/27/24 10/17/24 16:22 Currently or been in a relationship where the following occur: I choose not to answer Const General: alert; No acute distress Eyes Conjunctivae: conjunctivae normal Resp Auscultation: clear to auscultation bilaterally Cardio Rate: regular rate Rhythm: regular rhythm GI Inspection: Yes normal to inspection Extrem General: Yes normal to inspection and No edema Coding Level of Care Code Est Pt Level 4 (31881) Complex EM visit Add On G2211 Diagnoses Type 2 diabetes mellitus with hyperglycemia E11.65 Class 2 severe obesity due to excess calories with serious comorbidity and body mass index (BMI) of 36.0 to 36.9 in adult E66.812; E66.01; Z68.36 Obesity type: due to excess calories Obesity classification: adult class 2 (BMI 35 - 39.9) Serious obesity comorbidity presence: with serious comorbidity Body mass index: BMI 36.0-36.9 Hypercholesterolemia E78.00 Hypertension, unspecified type I10 Hypertension type: unspecified Assessment & Plan Assessment & Plan (1) Type 2 diabetes mellitus with hyperglycemia: Code(s): E11.65 - Type 2 diabetes mellitus with hyperglycemia Category: Medical Plan: Decrease the amount of carbohydrate intake, pasta, bread, rice and potatoes are all sugar and that is aside from all the sweet stuff, remember that fruits are good but they are Sweet also. Hemoglobin A1c goal of less than 6.5. Patient is diet controlled (2) Obesity: Code(s): E66.9 - Obesity, unspecified Category: Medical Qualifiers: Obesity type: due to excess calories Obesity classification: adult class 2 (BMI 35 - 39.9) Serious obesity comorbidity presence: with serious comorbidity Body mass index: BMI 36.0-36.9 Qualified Code(s): E66.812 - Obesity, class 2; E66.01 - Morbid (severe) obesity due to excess calories; Z68.36 - Body mass index [BMI] 36.0-36.9, adult Plan: Diet and exercise (3) Hypercholesterolemia: Code(s): E78.00 - Pure hypercholesterolemia, unspecified Category: Medical Plan: Avoid fried foods, chicken skin, eggs, butter margarine, pastries and meat. Be it pork or beef they have a lot of cholesterol LDL goal of less than 100 and triglyceride of less than 150 (4) Hypertension: Code(s): I10 - Essential (primary) hypertension Category: Medical Qualifiers: Hypertension type: unspecified Qualified Code(s): I10 - Essential (primary) hypertension Plan: Continue with blood pressure medication. Decrease salt intake and exercise patient on amlodipine 10 mg once a day Plan History of Present Illness The patient is a 64-year-old female presenting for management of chronic conditions including hypertension, diabetes mellitus, and hypercholesterolemia. Hypertension has been a persistent issue, with current management involving amlodipine, which has not achieved adequate control as evidenced by a recent blood pressure reading of 160 mmHg. The patient is advised to start lisinopril i n addition to amlodipine to better manage her blood pressure. Diabetes mellitus management has been challenging, with recent A1c levels at 6.9%, above the target of less than 6.5%. The patient has been encouraged to focus on lifestyle modifications, including diet and exercise, to aid in weight loss and improve glycemic control. Hypercholesterolemia is being monitored, with LDL cholesterol levels at 104 mg/dL, slightly above the desired level of less than 100 mg/dL. Dietary changes have been recommended to help manage cholesterol levels, including reducing intake of high-cholesterol foods. The patient also reports a history of major depressive disorder and is currently considering the need for continued use of Lexapro. She acknowledges the potential impact of antidepressants on weight but feels the medication is necessary for her mental health. Health Maintenance - Shingles vaccination administered to prevent herpes zoster infection. Social History - Dietary habits: Patient has reduced rice intake due to family history of diabetes and now consumes salads for lunch. - Exercise: Encouraged to engage in regular physical activity to aid in weight management and glycemic control. Review of Systems - Cardiovascular: Reports elevated blood pressure readings. - Endocrine: Reports elevated A1c levels. - Psychiatric: Reports need for Lexapro for depression management. Physical Exam - Cardiovascular: Blood pressure measured at 160 mmHg, indicating uncontrolled hypertension. Results - Labs: A1c level at 6.9% as of August. - Labs: LDL cholesterol level at 104 mg/dL. Plan The management plan for hypertension includes the addition of lisinopril to the current regimen of amlodipine to achieve better blood pressure control. The patient is advised to monitor her blood pressure regularly and report any adverse effects, particularly a cough, which may necessitate a change in medication. For diabetes mellitus, the focus remains on lifestyle modifications, including dietary changes and increased physical activity, to improve glycemic control and facilitate weight loss. The patient is encouraged to continue these efforts and consider medication adjustments if necessary after her upcoming surgery. Hypercholesterolemia management involves dietary modifications to reduce cholesterol intake, with an emphasis on avoiding high-cholesterol foods such as chicken skin and egg yolks. The patient is advised to follow a heart-healthy diet to achieve target LDL levels. For major depressive disorder, the patient is advised to continue Lexapro as needed, acknowledging the potential impact on weight but prioritizing mental health stability. Regular follow-up is recommended to assess the effectiveness of the treatment plan and make necessary adjustments. Patient was informed and verbally consented to the use of an ambient scribe for clinic note documentation during this visit. Discussion Notes During the visit, I discussed with the patient the importance of managing her hypertension by adding lisinopril to her current medication regimen. We reviewed the potential side effects, including the possibility of a cough, and the need for regular blood pressure monitoring. For diabetes management, I emphasized the role of lifestyle changes, such as diet and exercise, in achieving better glycemic control and weight loss. We also discussed the potential need for medication adjustments post-surgery. I advised the patient on dietary modifications to manage her hypercholesterolemia, highlighting the need to avoid high-cholesterol foods. For her major depressive disorder, we agreed on the continued use of Lexapro, considering its benefits for her mental health. Patient Instructions - Take lisinopril as prescribed, in addition to amlodipine, and monitor blood pr essure regularly. - Follow a heart-healthy diet, avoiding high-cholesterol foods like chicken skin and egg yolks. - Engage in regular physical activity to aid in weight loss and improve blood sugar control. - Continue taking Lexapro as needed for depression management. - Schedule a follow-up appointment in three months to assess progress and adjust treatment as necessary. Medications: New lisinopril 5 mg PO DAILY 30 tabs 4RF I10 - Essential (primary) hypertension
[2024-10-17 16:28] VITALS: BP 160/70
--- OUTSIDE RECORDS SUMMARY | 2024-10-17 17:37 | XMS_ITS | Patient Health Record ---
Author Organization [facility] Address [address] [place] [address] Care Team Providers Care Nail Tech Name Role Phone Kristin Marquez Primary Care Provider Vincent Shaver Unavailable [phone] Reason For Referral No Information Medications Medication SIG (Take, Route, Frequency, Duration) Notes Start Date End Date Status buPROPion HCl ER (XL) 150 MG 1 tablet in the morning Orally Once a day Active hydroCHLOROthiazide 25 MG 1 tablet in th e morning Orally Once a day Active Social History Tobacco Use: Social History Observation Description Date Details (start date - stop date) Former Smoker NA - NA Tobacco Use/Smoking Question Answer Notes Patient is a former smoker How long has it been since you last smoked? > 10 years Alcohol Screen Question Answer Notes Did you have a drink containing alcohol in the p ast year? No Points 0 Interpretation Negative Section Notes: Nonsmoker; no sig alcohol Problems Problem Type SNOMED Code ICD Code Onset Dates Problem Status W/U Status Risk Notes Problem [id number] Encounter for screening for malignant neoplasm of colon (Z12.11) Active confirmed Problem [id number] Pre-procedural examination (Z01.818) Active confirmed Plan Of Treatment Future Test Test Name Order Date COLONOSCOPY 10/07/2016 Insurance Providers Payer Name Payer Address Payer Phone Subscriber Number Group Number Insured Name Patient Relationship to Insured Coverage Start Date Coverage End Date [facility] [address] [facility] [phone] [id number] AIDAN SIDHU Self - patient is the insured Medical (General) History Medical History History ICD Code Hypertension Denies ID,DM,CVA,Lung disease,renal dise ase Depression Describes a negative sleep study approx. 7 yrs ago She describes lactose intolerance Moderate to large-sized hiat al hernia seen in October 2014 GI series--there was no sign of any significant reflux nor esophageal disease seen on this study, and she has not had asymptomatic reflux requiring medication Surgical History Surgery Date(Month/Year) Laparoscopy for a uterine fibroid---not removed
== END 2024-10-17 16:48 | disposition home or self-care (01) ==
LOC: HO.HMCH 16:15
PROVIDERS: PCP Internal Medicine; Visit Provider Internal Medicine
DX: E11.65 Type 2 diabetes mellitus with hyperglycemia (principal); E66.812 Obesity, class 2; E66.01 Morbid (severe) obesity due to excess calories; Z68.36 Body mass index [BMI] 36.0-36.9, adult; E78.00 Pure hypercholesterolemia, unspecified; I10 Essential (primary) hypertension

== ENCOUNTER → 2024-10-17 16:14 | Outpatient (BNVA) | payer OTHER, SELFPAY | PROVIDERS: PCP Internal Medicine; Visit Provider Internal Medicine | DX: Z13.89 Encounter for screening for other disorder (principal) ==

== ENCOUNTER 2024-10-24 11:01 | Outpatient (AMB) | payer OTHER, SELFPAY ==
--- NOTE | 2024-10-24 11:05 | MHC.OFFVISWM ---
VS Expanded 10/24/24 11:19 BP 156/67 H Blood Pressure Location Rt brachial Blood Pressure Position Sitting Pulse 60 Pulse Source Pulse Oximeter Temp 97.1 F Temperature Source Temporal Artery Scan Pulse Oximetry 96 Oxygen Delivery Method Room Air Height 5 ft 1 in Weight 187 lb 3.2 oz BMI 35.4 Body Fat % 45.0 Body Fat Mass 84.2 Fat Free Mass 103.0 Visceral Fat Rating 13.0 Body Water % 38.9 Body Water Mass 72.8 Muscle Mass/Score 97.6 Basal Metabolic Rate/Score 1,441 Intake Visit Reasons: OV Follow Up SWL / Hiatal Hernia Allergies citalopram Allergy (Intermediate, Verified 10/17/24 16:19) restless leg syndrome venlafaxine Adverse Reaction (Intermediate, Verified 10/17/24 16:19) abdominal pain bupropion Adverse Reaction (Mild, Verified 10/17/24 16:19) angry HPI Comments Details: She is here to go over the plan one more time [facility] Medical History (Updated 10/17/24 @ 16:23 by Radha Pino MD) Dyspnea on exertion Impaired glucose tolerance Diabetes Dysphagia Mild recurrent major depression Neck pain GERD (gastroesophageal reflux disease) Cramps of lower extremity Family history of thyroid disease Deep vein thrombosis (DVT) Lab test positive for detection of COVID-19 virus Obesity Surgical History History of cone biopsy of cervix History of exploratory laparotomy History of colonoscopy History of esophagogastroduodenoscopy (EGD) Family History Mother Alzheimer disease Dementia Hypertension Thyroid disease Mental health disorder Father No problems noted. 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 Current occupational exposures/hazards: No Cognitive needs: No Hearing needs: No Vision needs: Yes (Glasses) Physical Exam Vital Signs: Last Vital Signs Temp 97.1 F 10/24/24 11:19 Pulse 60 10/24/24 11:19 BP 156/67 H 10/24/24 11:19 Pulse Ox 96 10/24/24 11:19 Oxygen Delivery Method Room Air 10/24/24 11:19 BMI result Body Mass Index 35.4 Assessment & Plan Assessment & Plan (1) Obesity: Code(s): E66.9 - Obesity, unspecified Category: Medical Qualifiers: Obesity type: due to excess calories Obesity classification: adult class 2 (BMI 35 - 39.9) Serious obesity comorbidity presence: with serious comorbidity Body mass index: BMI 36.0-36.9 Qualified Code(s): E66.812 - Obesity, class 2; E66.01 - Morbid (severe) obesity due to excess calories; Z68.36 - Body mass index [BMI] 36.0-36.9, adult Plan: 1. Plan for combined laparoscopic sleeve gastrectomy and diaphragmatic hernia repair 2. Her new body composition scale was set up today at the office and she sent me the first measurements. She needs to send them weekly on Thursday morning 3. She will follow the meal plan I gave her that includes 3 Celebrate Rebuild protein shakes (HALF scoop each in 8oz almond milk), 2 Celebrate protein bars and one meal (6 forks of meat and 6 forks of salad or vegetables) 4. My office will reschedule the therapy and abdominal ultrasound appointments Patient is in agreement with this plan
[2024-10-24 11:19] VITALS: BP 156/67; PULSE 60; TEMP 36.2; O2SAT 96; BMI 35.4
--- OUTSIDE RECORDS SUMMARY | 2024-10-24 11:53 | XMS_ITS | Patient Health Record ---
Author Organization [facility] Address [address] [place] [address] Care Team Providers Care Tip Cementer Name Role Phone Kristin Marquez Primary Care Provider Vincent Shaver Unavailable [phone] Reason For Referral No Information Medications Medication [...] Problem Status W/U Status Risk Notes Problem [id number] Encounter for screening for malignant neoplasm of colon (Z12.11) Active confirmed Problem [id number] Pre-procedural examination (Z01.818) Active confirmed Plan Of Treatment Future Test Test Name Order Date COLONOSCOPY 10/07/2016 Insurance Providers Payer Name Payer Address Payer Phone Subscriber Number Group Number Insured Name Patient Relationship to Insured Coverage Start Date Coverage End Date [facility] [address] [facility] [phone] [id number] AIDAN SIDHU Self - patient is the insured Medical (General) History Medical History History ICD Code Hypertension Denies IA,DM,CVA,Lung disease,renal dise ase Depression Describes a negative [...]
== END 2024-10-24 12:30 | disposition home or self-care (01) ==
LOC: HO.HBS 11:01
PROVIDERS: PCP Internal Medicine; Visit Provider Surgery
DX: E66.812 Obesity, class 2 (principal); E66.01 Morbid (severe) obesity due to excess calories; Z68.36 Body mass index [BMI] 36.0-36.9, adult
CPT/HCPCS: 99214

== ENCOUNTER 2024-11-01 12:07 | Day surgery (SDC) | payer OTHER, SELFPAY ==
--- NOTE | 2024-09-07 12:48 | P.CONAN_ITS ---
HPI - Anesthesia Eval Consult details Narrative: 64yo F for Upper Endoscopy, 10/05/24 [facility] Active Problems Active Problems: All Active Problems Diabetes (Acute) Uterine prolapse (Acute) Incarcerated hiatal hernia (Acute) Vaginal prolapse (Acute) Trigger finger (Acute) Asthma (Acute) Lumbar pain (Acute) Cystocele with uterine prolapse (Acute) Well woman exam (Acute) Physical exam (Acute) Mild recurrent major depression (Acute) Neck pain (Acute) Hepatic steatosis (Acute) Anxiety (Acute) Anemia (Acute) Numbness and tingling in both hands (Acute) Left foot pain (Acute) Asthma (Acute) Dyspnea on exertion (Acute) Impaired glucose tolerance (Acute) GERD (gastroesophageal reflux disease) (Acute) Cramps of lower extremity (Acute) Family history of thyroid disease (Acute) Deep vein thrombosis (DVT) (Acute) Pulmonary nodule (Acute) COVID-19 (Acute) Lab test positive for detection of COVID-19 virus (Acute) Hypertension (Acute) Depression (Acute) Obesity (Acute) Past Medical History Medical History (Updated 09/19/24 @ 14:43 by Radha Pino MD) Diabetes Dysphagia Mild recurrent major depression Neck pain Impaired glucose tolerance GERD (gastroesophageal reflux disease) Cramps of lower extremity Family history of thyroid disease Deep vein thrombosis (DVT) Lab test positive for detection of COVID-19 virus Obesity Family History Family History Mother Alzheimer disease Dementia Hypertension Thyroid disease Mental health disorder Father No problems noted. 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
--- NOTE | 2024-10-31 10:00 | P.CONAN_ITS ---
Documented by User: Luisa López NP 10/31/24 10:01 HPI - Anesthesia Eval Consult details Narrative: 64yo F for Upper Endoscopy PMFSH Active Problems Active Problems: All Active Problems Vitamin A deficiency (Acute) Vitamin D deficiency (Acute) Hypercholesterolemia (Acute) Type 2 diabetes mellitus with hyperglycemia (Acute) Diabetes (Acute) Uterine prolapse (Acute) Incarcerated hiatal hernia (Acute) Vaginal prolapse (Acute) Trigger finger (Acute) Asthma (Acute) Lumbar pain (Acute) Cystocele with uterine prolapse (Acute) Well woman exam (Acute) Physical exam (Acute) Mild recurrent major depression (Acute) Neck pain (Acute) Hepatic steatosis (Acute) Anxiety (Acute) Anemia (Acute) Numbness and tingling in both hands (Acute) Left foot pain (Acute) Asthma (Acute) GERD (gastroesophageal reflux disease) (Acute) Cramps of lower extremity (Acute) Family history of thyroid disease (Acute) Deep vein thrombosis (DVT) (Acute) Pulmonary nodule (Acute) COVID-19 (Acute) Lab test positive for detection of COVID-19 virus (Acute) Hypertension (Acute) Depression (Acute) Obesity (Acute) Past Medical History Medical History Post-COVID chronic shortness of breath HTN (hypertension) Dyspnea on exertion Impaired glucose tolerance Diabetes Dysphagia Mild recurrent major depression Neck pain GERD (gastroesophageal reflux disease) Cramps of lower extremity Family history of thyroid disease Deep vein thrombosis (DVT) Lab test positive for detection of COVID-19 virus Obesity Family History Family History Mother Alzheimer disease Dementia Hypertension Thyroid disease Mental health disorder Father No problems noted. Maternal Aunt Ovarian cancer Family history of problems with anesthesia: No Surgical History Surgical History History of cone biopsy of cervix History of exploratory laparotomy History of colonoscopy History of esophagogastroduodenoscopy (EGD) History of Problems with Anesthesia: No Social History Social History Household Members: Significant Other and Family Housing: House Alcohol intake: never Patient Tobacco Use Status: Former Tobacco user e-Cigarette/Vaping Use: Never Used Second Hand Smoke Exposure: Yes Use of substances other than those prescribed or required for medical reasons: No Are you DNR?: No Advance Directives: No Advance Directives Information Provided: Yes service: No Current occupational status: employed 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 Current occupational exposures/hazards: No Cognitive needs: No Hearing needs: No Vision needs: Yes (Glasses) Meds Allergies Allergy/AdvReac Type Severity Reaction Status Date / Time citalopram Allergy Intermediate restless Verified 11/01/24 13:30 leg syndrome venlafaxine AdvReac Intermediate abdominal Verified 11/01/24 13:30 pain bupropion AdvReac Mild angry Verified 11/01/24 13:30 Assessment and Plan Assessment Anesthesia Assessment: Chart Reviewed Final Anesthetic Review Family History of Problems with Anesthesia: No History of Problems with Anesthesia: No Documented by User: Sondra Dodson MD 11/01/24 14:48 [facility] Past Medical History Medical History Post-COVID chronic shortness of breath HTN (hypertension) Dyspnea on exertion Impaired glucose tolerance Diabetes Dysphagia Mild recurrent major depression Neck pain GERD (gastroesophageal reflux disease) Cramps of lower extremity Family history of thyroid disease Deep vein thrombosis (DVT) Lab test positive for detection of COVID-19 virus Obesity Family History Family History Mother Alzheimer disease Dementia Hypertension Thyroid disease Mental health disorder Father No problems noted. Maternal Aunt Ovarian cancer Surgical History Surgical History History of cone biopsy of cervix History of exploratory laparotomy History of colonoscopy History of esophagogastroduodenoscopy (EGD) Social History Social History Household Members: Significant Other and Family Housing: House Alcohol intake: never Patient Tobacco Use Status: Former Tobacco user e-Cigarette/Vaping Use: Never Used Second Hand Smoke Exposure: Yes Use of substances other than those prescribed or required for medical reasons: No Are you DNR?: No Advance Directives: No Advance Directives Information Provided: Yes service: No Current occupational status: employed 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 Current occupational exposures/hazards: No Cognitive needs: No Hearing needs: No Vision needs: Yes (Glasses) Meds Allergies Allergy/AdvReac Type Severity Reaction Status Date / Time citalopram Allergy Intermediate restless Verified 11/01/24 13:30 leg syndrome venlafaxine AdvReac Intermediate abdominal Verified 11/01/24 13:30 pain bupropion AdvReac Mild angry Verified 11/01/24 13:30 Exam Airway Mallampati Class: II TM Dist: >3cm Neck ROM: Full Loose/Missing/Broken Teeth: No Heart: RRR Lungs: CTA Assessment and Plan Assessment Anesthesia Assessment: Anesthesia Plan Discussed Final Anesthetic Review NPO: Yes ASA Class: II Final Preanesthetic Review: Meds/Allgs Chart Reviewed, Consent Obtained/Reviewed and Anes Risks/Benef Reviewed Patient Risk: Low Procedure Risk: Intermediate Anesthetic Plan Anesthetic Plan: MAC: Disposition: Standard PACU
[2024-11-01 13:11] VITALS: BMI 34.8
[2024-11-01 13:34] VITALS: BP 143/72; PULSE 63; RESP 15; TEMP 36.2; O2SAT 98
[2024-11-01] MEDS: Lactated Ringers 1,000 ML 80 ML IVCONT (13:36)
--- NOTE | 2024-11-01 14:44 | MHC.SHP ---
Pre-Procedural Eval Section A - 24 Hr Update-Section A only Date of Service: 11/01/24 The patient is an INPATIENT: No The patient has been examined within 24 hours of the surgical procedure. The History & Physical has been completed within 30 days and I have reviewed it.: Yes Section B - Complete if H&P > 30 days Chief Complaint: Morbid (severe) obesity due to excess calories Details of Present Illness: GERD Relevant Family History (Specify if Yes): No Relevant Social History: None Present Medications: None Medical History: No relevant PMH History of Previous Operations: No relevant previous surgery Allergies: Allergies Allergy/AdvReac Type Severity Reaction Status Date / Time citalopram Allergy Intermediate restless Verified 11/01/24 13:30 leg syndrome venlafaxine AdvReac Intermediate abdominal Verified 11/01/24 13:30 pain bupropion AdvReac Mild angry Verified 11/01/24 13:30 Review of Systems Sugical H&P ROS: Negative: Constitution, Cardiovascular, Respiratory, Neurological, Psychiatric, Hem-Onc, Allergic/Immunologic, Gastrointestinal, Genitourinary, Musculoskeletal, Integumentary, Endocrine and Eyes/Ears/Nose/Throat Exam Surgical H&P Exam: Normal: HEENT, Normal: Heart, Normal: Lungs, Normal: Extremities, Normal: Abdomen, Normal: Skin and Normal: Neurological Plan Diagnosis/Plan: Unchanged (EGD to assess etiology of GERD. Risks of bleeding and perforation were discussed with the patient and she is in agreement with the plan.) I have reviewed the history and physical and performed a pertinent physical examination on my patient. No changes have occurred unless specified. Time Spent With Patient Time: Total time managing care of this patient today ____ minutes.
--- NOTE | 2024-11-01 14:50 | P.BOP_ITS ---
Brief Operative Note Date of Service: 11/01/24 Pre-op diagnosis: GERD Post-op diagnosis: same Procedure: PROCEDURE DATE: 11/01/2024 PREOPERATIVE DIAGNOSIS: GERD POSTOPERATIVE DIAGNOSIS: ?Same as above. Large diaphragmatic hernia PROCEDURE: [id number] with biopsies Surgeon: ?Hector Alex M.D.. Ph.D. Alternative Education Teacher: None ? Anesthesia: IV sedation Estimated blood loss: ?Minimal FINDINGS AND PROCEDURE: ? OPERATIVE INDICATIONS: ?The patient is a 64 year old female known to me who is interested in bariatric surgery. The patient has GERD. Based on this information I recommended an upper endoscopy to evaluate the patient's symptoms. Risks and complications of the surgery were discussed with the patient in advance particularly the possibility of perforation or bleeding that may require s urgical intervention. The patient understood the risks and was in agreement with the plan. ? PROCEDURE: After informed consent was obtained by the patient, the patient was ?transferred to the Operating Room and was placed in the supine position.? After successful induction of IV sedation, a mouth block was inserted and the patient was placed in the left lateral decubitus position. An upper endoscopy was performed next, the oropharynx and esophagus appeared within the normal limits. There was a large fixed 6cm hiatal hernia (GEJ at 29cm, crura at 35cm). The z-line was smooth. Two biopsies were obtained from the distal esophagus 2-3 cm proximal to the GE junction and two additional biopsies from the GE junction. The stomach was entered and it appeared to be of normal size. There was no gastritis. There was no stricture or ulcer. A biopsy was obtained from the gastric fundus and antrum. No significant bleeding was noted from any of the biopsy sites. Retroflexion of the scope confirmed the presence of a large diaphragmatic hernia. The scope was then advanced into the duodenum which appeared to be normal as well. At that point the duodenum ?and the stomach were decompressed and the scope was withdrawn from the patient's mouth. The patient extubated and was transferred in stable condition to the Recovery Room for further care. I was present and performed all steps of the procedure. There were no residents to assist with this case. Hector Alex M.D., Ph.D. Surgeon: Berry Alex MD Anesthesia: MAC Was an Alternative Education Teacher used for this Procedure?: No Estimated blood loss (mL): 0 IV fluids (mL): 400 Urine output (mL): 0 (No Martinez to record output) Pathology: other (1) antrum x1, 2) fundus x1, 3) GE junction x2, 4) distal esophagus x2) Condition: stable Disposition: PACU
[2024-11-01 15:10] VITALS: BP 118/59; PULSE 59; RESP 18; TEMP 36.6; O2SAT 96
[2024-11-01 15:25] VITALS: BP 129/78; PULSE 62; RESP 18; TEMP 36.2; O2SAT 96
== END 2024-11-01 15:32 | disposition home or self-care (01) ==
PROVIDERS: PCP Internal Medicine; Visit Provider Surgery
PROC: 0DJ08ZZ Inspection of Upper Intestinal Tract, Via Natural or Artificial Opening Endoscopic (ICD-10-PCS; CPT 43235; principal; 2024-11-01 15:00)
DX: K21.9 Gastro-esophageal reflux disease without esophagitis (principal); E66.01 Morbid (severe) obesity due to excess calories; Z68.36 Body mass index [BMI] 36.0-36.9, adult; K44.0 Diaphragmatic hernia with obstruction, without gangrene; R13.10 Dysphagia, unspecified; E11.9 Type 2 diabetes mellitus without complications; I10 Essential (primary) hypertension; I82.409 Acute embolism and thrombosis of unspecified deep veins of unspecified lower extremity; F33.0 Major depressive disorder, recurrent, mild; Z79.51 Long term (current) use of inhaled steroids; Z79.899 Other long term (current) drug therapy; Z88.8 Allergy status to other drugs, medicaments and biological substances; Z98.890 Other specified postprocedural states; Z87.891 Personal history of nicotine dependence
CPT/HCPCS: 43239; 88305; 88313; 88342; J2003; J2704

== ENCOUNTER → 2024-11-01 12:07 | Outpatient (BNV) | payer OTHER, SELFPAY | PROVIDERS: PCP Internal Medicine; Visit Provider Surgery | DX: K44.0 Diaphragmatic hernia with obstruction, without gangrene (principal) | CPT/HCPCS: 43239 ==

== ENCOUNTER 2024-11-22 14:21 | Outpatient (AMB) | payer OTHER, SELFPAY ==
--- NOTE | 2024-11-22 14:15 | MHC.WMTHER ---
Intake Intake Visit Reasons: TV BH Intake Allergies citalopram Allergy (Intermediate, Verified 11/01/24 13:30) restless leg syndrome venlafaxine Adverse Reaction (Intermediate, Verified 11/01/24 13:30) abdominal pain bupropion Adverse Reaction (Mild, Verified 11/01/24 13:30) angry PFSH Medical History Post-COVID chronic shortness of breath HTN (hypertension) Dyspnea on exertion Impaired glucose tolerance Diabetes Dysphagia Mild recurrent major depression Neck pain GERD (gastroesophageal reflux disease) Cramps of lower extremity Family history of thyroid disease Deep vein thrombosis (DVT) Lab test positive for detection of COVID-19 virus Obesity Surgical History History of cone biopsy of cervix History of exploratory laparotomy History of colonoscopy History of esophagogastroduodenoscopy (EGD) Family History Mother Alzheimer disease Dementia Hypertension Thyroid disease Mental health disorder Father No problems noted. 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 She was initially referred to the program by her primary care provider (PCP). Presenting Concerns Referral Source WMP-Provider Reason for referral Completion of behavioral health assessment as part of process for weight-loss surgery. Precipitating Event Obesity Living Situation Current Living Situation Own At risk of losing current housing? No Satisfied with current living situation? Yes Comments The patient lives with her partner and her mother. Her son, along with his partner and their child, also resides in the basement of the same home. Social History Family history and relationship PT has been in a relationship for about 30 years, they have an adult son together. Father , mother is alive, she has no siblings. 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 Developmental history and status None. Currently WNL. Social support Partner, son, friends. Community support None Cultural/Ethnic information Born in [facility]. She has been in the [place] ago. Legal Involvement and History Current or historical involvement with the legal system? None. Education Highest grade completed HS. 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 Preferred learning style Visual Currently enrolled in educational program? No Interested in further educational program? 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 No Meaningful activities arts, crafts Financial Situation Describe current financial situation Occasional struggle and Often struggles with finance Financial assistance? None Service Service? No Mental Health and Addiction Treatment Current/Past substance abuse? No Comments Alcohol: None Cigarettes/Tobacco: None Cannabis/Edibles: None Current/Past addictive behavior concerns? No Psychiatric history The patient reports no prior experience with counseling or psychotherapy. She denies any history of psychiatric crises or inpatient psychiatric care. There is no past or current concern for suicidal ideation (SI), suicide attempts (SA), self-harm, or harm to others. She experienced depression (PPD) following the of her son. Since then, she has had occasional brief episodes of depressive symptoms, though she has never met full criteria for a major depressive episode. These episodes, typically lasting a few hours to a maximum of 1?3 days, are characterized by irritability, sleep disturbances, and crying spells. She reports that these symptoms have never lasted two weeks or more. The patient has been prescribed antidepressant medications in the past by her primary care provider (PCP), but she reports no noticeable benefit from them. Medical and Physical Health Summary Additional Medical History not covered in history None additional. Sexual History concerns None reported. Physical exam in the last year? Yes Medications Is the patient compliant with medications? Yes Does the patient have Rangel Guardian in place? Not applicable Does the patient use complimentary health approaches? No Assessment & Plan Assessment & Plan (1) Adjustment disorder: Code(s): F43.20 - Adjustment disorder, unspecified Qualifiers: Adjustment disorder type: unspecified type Qualified Code(s): F43.20 - Adjustment disorder, unspecified (2) Pre-bariatric surgery psychological evaluation: Code(s): Z71.89 - Other specified counseling Plan The patient was not cleared today as the assessment was not completed. She will return in 2?4 weeks to continue the evaluation process. The PHQ-9 and BES will be administered at the next visit, as these were not included in the new patient intake packet. Next appointment: 12/14/2024 at 2:30 PM. Telehealth Telehealth Telehealth Platform: [employer] Location of provider rendering services: other (Home office. [place], [place]) Location of patient: other (Work. [place], [place]) Patient Identification confirmed using: Name, : Yes Telehealth method: voice only Patient verbally consented to treatment: Yes Patient verbally consented to billing insurance company: Yes Patient informed of any privacy concerns related to visit: Yes Minutes spent on Phone/Video with Pt.: 70 Coding Level of Care Code New Pt Tele Psy Diag Eval (04803) Patient Type New Diagnoses Adjustment disorder, unspecified type F43.20 Adjustment disorder type: unspecified type Pre-bariatric surgery psychological evaluation Z71.89 Time Spent (min) 70
--- OUTSIDE RECORDS SUMMARY | 2024-11-22 15:00 | XMS_ITS | Patient Health Record ---
Author Organization [facility] Address [address] [place] [address] Care Team Providers Care Sea Shell Gatherer Name Role Phone Kristin Marquez Primary Care Provider Vincent Shaver Unavailable [phone] Reason For Referral No Information Medications Medication [...] Problem Status W/U Status Risk Notes Problem [id number] Encounter for screening for malignant neoplasm of colon (Z12.11) Active confirmed Problem [id number] Pre-procedural examination (Z01.818) Active confirmed Plan Of Treatment Future Test Test Name Order Date COLONOSCOPY 10/07/2016 Insurance Providers Payer Name Payer Address Payer Phone Subscriber Number Group Number Insured Name Patient Relationship to Insured Coverage Start Date Coverage End Date [facility] [address] [facility] [id number] AIDAN SIDHU Self - patient is the insured Medical (General) History Medical History History ICD Code Hypertension Denies NC,DM,CVA,Lung disease,renal dise ase Depression Describes a negative [...]
== END 2024-11-22 15:21 | disposition home or self-care (01) ==
LOC: HO.HBST 14:21
PROVIDERS: PCP Internal Medicine; Visit Provider Counselor Mental Health
DX: F43.20 Adjustment disorder, unspecified (principal); Z71.89 Other specified counseling
CPT/HCPCS: 90791

== ENCOUNTER 2024-12-12 09:52 | Outpatient (REF) | payer OTHER, SELFPAY ==
--- NOTE | ~2024-12-12 | US_ITS ---
EXAMINATION: US ABDOMEN COMPLETE WITH LIVER ELASTOGRAPHY HISTORY: E66.9 - Obesity, unspecified TECHNIQUE: Real-time grayscale ultrasound imaging of the abdomen was performed and images were reviewed. COMPARISON: There are no prior studies available for comparison. FINDINGS: Liver: The right lobe of the liver measures 15.3 cm in size. The left lobe of the liver measures 12.8 cm in size. The liver demonstrates increased echotexture, consistent with steatosis. There is a 1.1 cm cyst in the left lobe. No intrahepatic biliary ductal dilatation is identified. There is normal hepatopedal flow in the portal vein. Ultrasound elastography of the liver was performed with 10 separate measurements of the liver parenchyma with the patient in the supine position. Measurements were obtained approximately 2 cm below Reid's capsule and perpendicular to the capsule. The median shear wave velocity is 1.47 m/s. The interquartile range/median (IQR/median) is 0.08. Gallbladder and biliary tree: The gallbladder is unremarkable, without evidence of calculi, wall thickening, or pericholecystic fluid. There is no sonographic Johnson sign. The common bile duct is normal in caliber measuring 2 mm. Kidneys: The right kidney measures 10.4 cm in length. The left kidney measures 11.0 cm in length and demonstrates a 1.1 cm cyst with wall calcification in the midportion. The kidneys are otherwise unremarkable, without evidence of solid masses, hydronephrosis, or calculi. Pancreas: The pancreatic head, neck, and body are unremarkable. The pancreatic tail is obscured by bowel gas. Spleen: The spleen is normal in size and contour, measuring 8.5 cm in length. Abdominal aorta and inferior vena cava: The visualized portions of the abdominal aorta and inferior vena cava are normal in caliber. There is no free fluid in the abdomen. US/US abdomen comp w elastography IMPRESSION: Hepatic steatosis. The median shear wave velocity in the liver is 1.47 m/s, corresponding to a median liver stiffness of 6.59 kPa. The IQR/median value is 0.08. This is indicative of a quality data set. Findings are indicative of a low elastography value which rules out advanced chronic liver disease in asymptomatic patients. REFERENCE: Society of Radiologists in Ultrasound Liver Stiffness Thresholds (2020): LIVER STIFFNESS THRESHOLDS: *Shear wave velocity less than 1.3 m/s (Liver Stiffness equal or less than 5 kPa): High probability of being normal. *Shear wave velocity less than 1.7 m/s (Liver Stiffness less than 9 kPa): In the absence of other known clinical signs, rules out compensated advanced chronic liver disease. *Shear wave velocity between 1.7-2.1 m/s (Liver Stiffness 9-13 kPa): Suggestive of compensated advanced chronic liver disease but need further test for confirmation. *Shear wave velocity between 2.1-2.4 m/s (Liver Stiffness 13-17 kPa): Rules in compensated advanced chronic liver disease. *Shear wave velocity greater than 2.4 m/s (Liver Stiffness over 17 kPa): Suggestive of clinically significant portal hypertension. QUALITY OF DATA SET: *IQR/Median value equal or less than 0.15 implies a quality data set. *IQR/Median value over 0.15 implies a poor quality data set. SIGNIFICANT CHANGE FROM PRIOR EXAM: Significant change if liver stiffness measurement is 10% or greater from prior exam. OTHER CONSIDERATIONS: The stage of liver fibrosis may be overestimated in the setting of acute hepatitis, liver inflammation, elevated liver function tests, hepatic vascular congestion, obstructive cholestasis, non-fasting state, and infiltrative diseases such as amyloidosis and lymphoma. In some patients with NAFLD, the liver stiffness thresholds for compensated advanced chronic liver disease may be lower. In causes other than viral hepatitis and NAFLD, liver stiffness thresholds are not well established. Electronically signed by: Vincent Powell MD 12/12/2024 10:54 AM EDT
--- NOTE | 2024-12-12 10:43 | ECG_ITS ---
Test Reason : OBS Blood Pressure : */* mmHG Vent. Rate : 46 BPM Atrial Rate : 46 BPM P-R Int : 156 ms QRS Dur : 80 ms QT Int : 450 ms P-R-T Axes : 34 57 80 degrees QTcB Int : 393 ms Sinus bradycardia Otherwise normal ECG When compared with ECG of 12-Apr-2021 11:28, No significant change was found Referred By: Berry Alex Electronically Signed By: MARCO PEREZ MD
--- OUTSIDE RECORDS SUMMARY | 2024-12-12 10:46 | XMS_ITS | Patient Health Record ---
Author Organization [facility] Address [address] [place] [address] Care Team Providers Care Air Conditioning Technician Name Role Phone Kristin Marquez Primary Care Provider Vincent Shaver Unavailable [phone] Reason For Referral No Information Medications Medication [...] Problem Status W/U Status Risk Notes Problem [id number] Encounter for screening for malignant neoplasm of colon (Z12.11) Active confirmed Problem [id number] Pre-procedural examination (Z01.818) Active confirmed Plan Of Treatment Future Test Test Name Order Date COLONOSCOPY 10/07/2016 Insurance Providers Payer Name Payer Address Payer Phone Subscriber Number Group Number Insured Name Patient Relationship to Insured Coverage Start Date Coverage End Date [facility] [address] [facility] [phone] [id number] AIDAN SIDHU Self - patient is the insured Medical (General) History Medical History History ICD Code Hypertension Denies PA,DM,CVA,Lung disease,renal dise ase Depression Describes a negative [...]
== END 2024-12-12 09:53 | disposition home or self-care (01) ==
LOC: HO.US 09:52
PROVIDERS: PCP Internal Medicine; Visit Provider Surgery
DX: E66.9 Obesity, unspecified (principal); K21.9 Gastro-esophageal reflux disease without esophagitis; K44.0 Diaphragmatic hernia with obstruction, without gangrene; E11.9 Type 2 diabetes mellitus without complications; Z68.36 Body mass index [BMI] 36.0-36.9, adult
CPT/HCPCS: 76700; 76981; 93005

== ENCOUNTER → 2024-12-12 09:56 | Outpatient (BNV) | payer OTHER, SELFPAY | PROVIDERS: PCP Internal Medicine; Visit Provider Radiology Diagnostic Radiology | DX: K76.0 Fatty (change of) liver, not elsewhere classified (principal) | CPT/HCPCS: 76700 ==

== ENCOUNTER → 2024-12-12 10:43 | Outpatient (BNV) | payer OTHER, SELFPAY | PROVIDERS: PCP Internal Medicine; Visit Provider Internal Medicine Cardiovascular Disease | DX: R00.1 Bradycardia, unspecified (principal) | CPT/HCPCS: 93010 ==

== ENCOUNTER 2024-12-14 15:13 | Outpatient (AMB) | payer OTHER, SELFPAY ==
--- NOTE | 2024-12-14 15:05 | A.OFFWM_ITS ---
Intake Intake Visit Reasons: TV Intake Part 2 Allergies citalopram Allergy (Intermediate, Verified 11/01/24 13:30) restless leg syndrome venlafaxine Adverse Reaction (Intermediate, Verified 11/01/24 13:30) abdominal pain bupropion Adverse Reaction (Mild, Verified 11/01/24 13:30) angry PFSH Medical History Post-COVID chronic shortness of breath HTN (hypertension) Dyspnea on exertion Impaired glucose tolerance Diabetes Dysphagia Mild recurrent major depression Neck pain GERD (gastroesophageal reflux disease) Cramps of lower extremity Family history of thyroid disease Deep vein thrombosis (DVT) Lab test positive for detection of COVID-19 virus Obesity Surgical History History of cone biopsy of cervix History of exploratory laparotomy History of colonoscopy History of esophagogastroduodenoscopy (EGD) Family History Mother Alzheimer disease Dementia Hypertension Thyroid disease Mental health disorder Father No problems noted. 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 She was initially referred by her primary care provider. The patient reports no prior experience with counseling or psychotherapy and denies any history of psychiatric crises, inpatient psychiatric care, suicidal ideation or attempts, self-harm, or harm to others. She also reports no history of substance use. There is no evidence of stress or emotional eating, and her BES score indicates a low risk for binge eating. PHQ-9 scores reveal no active symptoms or concerns with depression. Mental status examination is within normal limits, with no impairment in functioning identified. Based on the current assessment, the patient is cleared from a behavioral health perspective. Presenting Concerns Referral Source WMP-Provider Reason for referral Completion of behavioral health assessment as part of process for weight-loss surgery. Precipitating Event Obesity Living Situation Current Living Situation Own At risk of losing current housing? No Satisfied with current living situation? Yes Comments The patient lives with her partner and her mother. Her son, along with his partner and their child, also resides in the basement of the same home. Food/Weight/Diet Expectations of change PT started the program on 09/05/24 at 195Lbs, and reports her most recent weight was 182Lbs as of 11/25/24. Initial Goal to lose 10% of her weight before surgery, which is about 20lbs. Ultimate weight goal: 175lbs before surgery PT is not sure about the target weight but wants to be at a healthy weight where she doesn't need to take meds for HBP and have more active. PT is implementing the following: Current meal plan: 3 protein shakes, 2 protein bars, and one meal per day Exercise plan: stationary bike Scale: yes. Communication with provider: Fridays. None 2 weeks ago as scale broke, she's waiting for new one to arrive. History/Relationship with food The patient reports a particular preference for bread and rice. She has struggled with being overweight throughout her life, whi ch she attributes in part to her cultural background and longstanding dietary habits. Since childhood, her diet has been high in carbohydrates and fried foods, and she is accustomed to consuming larger portion sizes. Example of meals before starting the program: Breakfast: Scramble or HB eggs, 2 toasts with butter, cheese and fruit on the side. [place] juice and coffee. Lunch: 12:30 pm - soup, sandwiches Dinner: Rice, beans, chicken/meat. Cassava with/ onions and meats. Night snack: cake or fruit. Drinks/Liquids: coffee: 1 cup in the morning, w/ sugar. Tea: chamomile, green tea 2-3x week w/ sugar. Energy drinks: none. Soda: 1 can per day. Juice: 1-2 cups at day. History/Relationship with weight The patient reports being overweight since childhood. During her teenage years and early adulthood, her weight was consistently around 150 lbs. Thirty years ago, prior to , she weighed approximately 140 lbs. Over the past decade, her weight has fluctuated, with a lowest recorded weight of 175 lbs. and a highest of 220 lbs. History/Relationship with dieting Self-diets. Binge Eating Do you frequently eat large amounts of food in short periods of time, not feeling physically hungry? Yes Do you feel out of control when you eat a large amount of food in a short period of time? No Do you eat large amounts of food rapidly and typically alone? No Night Eating Do you wake up at least once during the night to eat? No If you wake up in the night, do you find that it is necessary to eat something in order to fall back asleep? No Do you have little or no appetite in the morning and feel very hungry in the evening, often overeating between dinner and when you go to bed? No Social History Family history and relationship PT has been in a relationship for about 30 years, they have an adult son together. Father , mother is alive, she has no siblings. 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 Developmental history and status None. Currently WNL. Social support Partner, son, friends. Community support None Cultural/Ethnic information Born in [facility]. She has been in the [place] years ago. Legal Involvement and History Current or historical involvement with the legal system? None. Education Highest grade completed HS. 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 Preferred learning style Visual Currently enrolled in educational program? No Interested in further educational program? 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 No Meaningful activities arts, crafts Financial Situation Describe current financial situation Occasional struggle and Often struggles with finance Financial assistance? None Service Service? No Mental Health and Addiction Treatment Current/Past substance abuse? No Comments Alcohol: None Cigarettes/Tobacco: None Cannabis/Edibles: None Current/Past addictive behavior concerns? No Psychiatric history The patient reports no prior experience with counseling or psychotherapy. She denies any history of psychiatric crises or inpatient psychiatric care. There is no past or current concern for suicidal ideation (SI), suicide attempts (SA), self-harm, or harm to others. She experienced depression (PPD) following the of her son. Since then, she has had occasional brief episodes of depressive symptoms, though she has never met full criteria for a major depressive episode. These episodes, typically lasting a few hours to a maximum of 1?3 days, are characterized by irritability, sleep disturbances, and crying spells. She reports that these symptoms have never lasted two weeks or more. The patient has been prescribed antidepressant medications in the past by her primary care provider (PCP), but she reports no noticeable benefit from them. Medical and Physical Health Summary Additional Medical History not covered in history None additional. Sexual History concerns None reported. Physical exam in the last year? Yes Pain Screening Current pain? No Pain in the last few months? No Medications Is the patient compliant with medications? Yes Does the patient have Rangel Guardian in place? Not applicable Does the patient use complimentary health approaches? No Trauma/Abuse History History of trauma? No Questionnaires PHQ-9 Over the last 2 weeks, how often have you been bothered by any of the following problems? 1. Little interest or pleasure in doing things: not at all 2. Feeling down, depressed, or hopeless: not at all 3. Trouble falling or staying asleep, or sleeping too much: not at all 4. Feeling tired or having little energy: not at all 5. Poor appetite or overeating: not at all 6. Feeling bad about yourself - or that you are a failure or have let yourself or your family down: not at all 7. Trouble concentrating on things, such as reading the newspaper or watching television: several days 8. Moving or speaking so slowly that other people could have noticed. Or the opposite - being so fidgety or restless that you have been moving around a lot more than usual: not at all 9. Thoughts that you would be better off or of hurting yourself in some way: not at all Total score: 1 Depression Screening Interpretation: Negative Depression Screening Done: Yes 56640 - PHQ-9 Billing: Yes Source: Developed by Drs. Vincent Cade, Raisa Gonzalez, gY Heller and colleagues, with an educational walter from [employer]. Assessment & Plan Assessment & Plan (1) Adjustment disorder: Code(s): F43.20 - Adjustment disorder, unspecified (2) Pre-bariatric surgery psychological evaluation: Code(s): Z71.89 - Other specified counseling Plan The patient has been cleared from a behavioral health perspective and is eligible for submission for insurance approval when ready. She will follow up in one month for additional preoperative behavioral health support, focusing on habit formation, lifestyle modifications, and developing coping skills to manage mood challenges and stressors, as she does not currently have an established behavioral health provider. A postoperative behavioral health follow-up will be scheduled 1?4 weeks after surgery to assess psychological adjustment and screen for any concerns. * Next appointment: 01/11/2025 at 2:00 PM,Telehealth. Telehealth Telehealth Telehealth Platform: [employer] Location of provider rendering services: other (Home office. [place], [place]) Location of patient: other (Work. [place], [place]) Patient Identification confirmed using: Name, : Yes Telehealth method: voice only Patient verbally consented to treatment: Yes Patient verbally consented to billing insurance company: Yes Patient informed of any privacy concerns related to visit: Yes Minutes spent on Phone/Video with Pt.: 55 Coding Level of Care Code Established Pt Tele Psytx >53 mins (45587) Patient Type Established Diagnoses Adjustment disorder F43.20 Pre-bariatric surgery psychological evaluation Z71.89 Additional Codes PHQ-9 - 69711 - PHQ-9 Billing: Yes ([id number]) Time Spent (min) 55
--- OUTSIDE RECORDS SUMMARY | 2024-12-14 16:06 | XMS_ITS | Patient Health Record ---
Author Organization [facility] Address [address] [place] [address] Care Team Providers Care Nanny/Household Manager Name Role Phone Kristin Marquez Primary Care Provider Vincent Shaver Unavailable [phone] Reason For Referral No Information Medications Medication [...] Problem Status W/U Status Risk Notes Problem [id number] Encounter for screening for malignant neoplasm of colon (Z12.11) Active confirmed Problem [id number] Pre-procedural examination (Z01.818) Active confirmed Plan Of Treatment Future Test Test Name Order Date COLONOSCOPY 10/07/2016 Insurance Providers Payer Name Payer Address Payer Phone Subscriber Number Group Number Insured Name Patient Relationship to Insured Coverage Start Date Coverage End Date [facility] [address] [facility] [phone] [id number] AIDAN SIDHU Self - patient is the insured Medical (General) History Medical History History ICD Code Hypertension Denies [place],DM,CVA,Lung disease,renal dise ase Depression Describes a negative [...]
== END 2024-12-14 15:51 | disposition home or self-care (01) ==
LOC: HO.HBST 15:13
PROVIDERS: PCP Internal Medicine; Visit Provider Counselor Mental Health
DX: F43.20 Adjustment disorder, unspecified (principal); Z71.89 Other specified counseling
CPT/HCPCS: 90837

== ENCOUNTER 2025-01-11 14:17 | Outpatient (AMB) | payer OTHER, SELFPAY ==
--- NOTE | 2025-01-11 14:05 | MHC.WMTHER ---
Intake Intake Visit Reasons: TV BH F/U Allergies citalopram Allergy (Intermediate, Verified 11/01/24 13:30) restless leg syndrome venlafaxine Adverse Reaction (Intermediate, Verified 11/01/24 13:30) abdominal pain bupropion Adverse Reaction (Mild, Verified 11/01/24 13:30) angry PFSH Medical History Post-COVID chronic shortness of breath HTN (hypertension) Dyspnea on exertion Impaired glucose tolerance Diabetes Dysphagia Mild recurrent major depression Neck pain GERD (gastroesophageal reflux disease) Cramps of lower extremity Family history of thyroid disease Deep vein thrombosis (DVT) Lab test positive for detection of COVID-19 virus Obesity Surgical History History of cone biopsy of cervix History of exploratory laparotomy History of colonoscopy History of esophagogastroduodenoscopy (EGD) Family History Mother Alzheimer disease Dementia Hypertension Thyroid disease Mental health disorder Father No problems noted. 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 She was unable to exercise and consumed foods outside of her usual plan during this period. Patient is aware of these challenges and remains committed to resuming her healthy habits. She is motivated to stay on track, especially as she has been approved for surgery, which is expected to occur soon. Patient had several questions regarding the MWL process. Objective: Patient presents for a behavioral health pre-operative appointment. Discussed current functioning, needs, and challenges related to weight management and surgery preparation. Provided support for readiness for surgery, emphasizing the importance of maintaining meal planning and exercise as part of long-term lifestyle changes for weight loss success and prevention of post-operative complications. Reviewed and reinforced behavioral activation strategies and provided tips for success. Assessment/Response: Mental status: WNL. Risk reported/identified: none Food/Weight/Diet Expectations of change PT started the program on 09/05/24 at 195Lbs, and reports her most recent weight was 182Lbs as of 11/25/24. Initial Goal to lose 10% of her weight before surgery, which is about 20lbs. Ultimate weight goal: 175lbs before surgery Recent weight 12/26/24: 182Lbs PT is not sure about the target weight but wants to be at a healthy weight where she doesn't need to take meds for HBP and have more active. PT is implementing the following: Current meal plan: 3 protein shakes, 2 protein bars, and one meal per day Exercise plan: stationary bike Scale: yes. Communication with provider: Fridays. Assessment & Plan Assessment & Plan (1) Adjustment disorder: Code(s): F43.20 - Adjustment disorder, unspecified Plan Patient will return for follow-up one week post-operatively. PT will await further instructions from the surgical team and address any additional questions with the surgeon as needed. Next jude: 1 wk PO Telehealth Telehealth Telehealth Platform: [email or web address] Location of provider rendering services: other (Home office. [place], [place]) Location of patient: other (Work. [place], [place]) Patient Identification confirmed using: Name, : Yes Telehealth method: voice only Patient verbally consented to treatment: Yes Patient verbally consented to billing insurance company: Yes Patient informed of any privacy concerns related to visit: Yes Minutes spent on Phone/Video with Pt.: 45 Coding Level of Care Code Established Pt Tele Psytx 45 mins (50310) Patient Type Established Diagnoses Adjustment disorder F43.20 Time Spent (min) 45
--- OUTSIDE RECORDS SUMMARY | 2025-01-11 18:02 | XMS_ITS | Patient Health Record ---
Author Organization [facility] Address [address] [place] [address] Care Team Providers Care Instructor Programmable Controllers Name Role Phone Kristin Marquez Primary Care Provider Vincent Shaver Unavailable [phone] Reason For Referral No Information Medications Medication [...] Problem Status W/U Status Risk Notes Problem [id number] Encounter for screening for malignant neoplasm of colon (Z12.11) Active confirmed Problem [id number] Pre-procedural examination (Z01.818) Active confirmed Plan Of Treatment Future Test Test Name Order Date COLONOSCOPY 10/07/2016 Insurance Providers Payer Name Payer Address Payer Phone Subscriber Number Group Number Insured Name Patient Relationship to Insured Coverage Start Date Coverage End Date [facility] [address] [facility] [phone] [id number] AIDAN SIDHU Self - patient is the insured Medical (General) History Medical History History ICD Code Hypertension Denies [place],DM,CVA,Lung disease,renal dise ase Depression Describes a negative [...]
== END 2025-01-11 15:21 | disposition home or self-care (01) ==
LOC: HO.HBST 14:17
PROVIDERS: PCP Internal Medicine; Visit Provider Counselor Mental Health
DX: F43.20 Adjustment disorder, unspecified (principal)
CPT/HCPCS: 90834

== ENCOUNTER 2025-01-16 08:15 | Outpatient (AMB) | payer OTHER, SELFPAY ==
--- NOTE | 2025-01-15 22:44 | A.OFFVIS_ITS ---
VS Expanded 01/15/25 22:45 Height 5 ft 1 in Weight 178 lb 8 oz BMI 33.7 Body Fat % 45.2 Body Fat Mass 80.8 Fat Free Mass 98.2 Visceral Fat Rating 16 Body Water % 37.7 Body Water Mass 67.4 Basal Metabolic Rate/Score 1,329 Intake Visit Reasons: TV Pre Op LSG 01/26/25 Allergies citalopram Allergy (Intermediate, Verified 01/15/25 22:48) restless leg syndrome venlafaxine Adverse Reaction (Intermediate, Verified 01/15/25 22:48) abdominal pain bupropion Adverse Reaction (Mild, Verified 01/15/25 22:48) angry Medication List - Last Reconciled 01/15/25 by Berry Alex MD amlodipine 10 mg PO DAILY 90 days cholecalciferol (vitamin D3) 125 mcg PO DAILY fluticasone furoate-vilanterol 200-25 mcg/dose (Breo Ellipta) 1 inh inhalation DAILY 30 days lisinopril 5 mg PO DAILY ondansetron 4 mg PO Q12H pantoprazole 40 mg PO DAILY polyethylene glycol 3350 17 grams PO DAILY sucralfate 10 mL PO BID vitamin A palmitate 3,000 mcg PO DAILY HPI HPI TV Pre Op LSG 01/26/25: Details: Start time: 1.30m, End time: 2pm ?I spent 25 minutes speaking with the patient on the phone plus an additional 5 minutes reviewing and updating records for a total of 30 minutes HPI Comments Details: Overall weight loss: 16.2lbs, or 8.31% TBWL Is doing 3 Celebrate Rebuild shakes with HALF scoop each in 8oz almond milk, 2 Celebrate bars and one meal (6 forks each) Exercise: Treadmill for 300 alonso x7/week COUNT INCLUDES THE [facility] Medical History (Updated 01/15/25 @ 22:41 by Berry Alex MD) BMI 34.0-34.9,adult Post-COVID chronic shortness of breath HTN (hypertension) Dyspnea on exertion Impaired glucose tolerance Diabetes Dysphagia Mild recurrent major depression Neck pain GERD (gastroesophageal reflux disease) Cramps of lower extremity Family history of thyroid disease Deep vein thrombosis (DVT) Lab test positive for detection of COVID-19 virus Obesity Surgical History History of cone biopsy of cervix History of exploratory laparotomy History of colonoscopy History of esophagogastroduodenoscopy (EGD) Family History Mother Alzheimer disease Dementia Hypertension Thyroid disease Mental health disorder Father No problems noted. 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 Current occupational exposures/hazards: No Cognitive needs: No Hearing needs: No Vision needs: Yes (Glasses) Physical Exam Vital Signs: BMI result Body Mass Index 33.7 Telehealth Telehealth Telehealth Platform: Telephone Location of provider rendering services: practice address Location of patient: address on file Patient Identification confirmed using: Name, : Yes Telehealth method: voice only Patient verbally consented to treatment: Yes Patient verbally consented to billing insurance company: Yes Patient informed of any privacy concerns related to visit: Yes Minutes spent on Phone/Video with Pt.: 30 Assessment & Plan Assessment & Plan (1) Obesity: Code(s): E66.9 - Obesity, unspecified Category: Medical Qualifiers: Body mass index: BMI 36.0-36.9 Obesity classification: adult class 2 (BMI 35 - 39.9) Obesity type: due to excess calories Serious obesity comorbidity presence: with serious comorbidity Qualified Code(s): E66.812 - Obesity, class 2; E66.01 - Morbid (severe) obesity due to excess calories; Z68.36 - Body mass index [BMI] 36.0-36.9, adult Plan: 1.? Plan for lap sleeve gastrectomy including upper GI endoscopy. All tests has been completed and reviewed and the patient is cleared for the surgery. ?If diaphragmatic or ventral hernias are present at time of surgery, these will be repaired laparoscopically as well. The surgery does not replace the need to change your lifestlyle which is the cause of the obesity problem. The surgery provides the motivation to try again to change your lifestyle, it reduces the appetite and make the transition to a better lifestyle easier and doubles the amount of weight you would lose compared to doing the lifestyle change without the surgery. You will need to be on a liquid diet with protein shakes for 2 weeks before surgery to maximize weight loss and boost your nutritional status to recover better from surgery and also for the first two weeks after surgery to let the stomach heal before we introduce other foods. After the first 2 weeks we will introduce protein bars and soft foods like scrambled eggs, cottage cheese and yogurt and after the 6th week will introduce meat, fish and cooked vegetables in small amounts. Over time you should be able to eat everything in small amounts. Side effects like nausea, vomiting, heartburn or abdominal pain are not common in the practice unless you are not following in the practice. This operation requires lifetime commitment to following in our practice and communication with me. You will much less weight and experience side effects if you don?t communicate or not following in the practice. Complications are rare and in our practice is about 1/10 of the national average. However, you can develop bleeding that may require transfusion (hasn?t happened for year in the practice), you may from complications (we did not have any deaths in the practice) and infections. Infections are usually a result of breakdown in communication or not understanding or following directions correctly. They are difficult to treat, they can happen during the first 6 weeks, they may require to be in the hospital for weeks or even months, not being able to eat by mouth and you may have drains and surgeries to try and correct the issue. Other risks and complications include possible conversion to an open procedure, leaks, small bowel obstruction, blood clots, cardiac, or pulmonary complications, as long-term complications such as ulcers, insufficient weight loss and vitamin deficiencies. So far she has proven to be an excellent communicator and very compliant with all our directions accomplishing a great weight loss. I believe that she is an excellent candidate and she is ready. 2. Preop prescriptions were provided and explained the purpose of each one. Need to be purchased preop. Start Pantoprazole now as you get it from the pharmacy, 1 pill per day. Sucralfate and Zofran are for after surgery as needed. 3. Bowel prep: please do 7 packets ?of Miralax mixing each one with a an 8oz glass of water, crystal light, gatorade zero, or propel ?on 01/24/25 and the same amount on 01/25/25. The Miralax you begin with one packet at a time in 8oz water or crystal light, gatorade zero, or propel ?as early in the day as you can and you do them back to back until you finish them. Continue the protein shakes during? the bowel prep. 4. Needs to purchase 1oz medicine cups . 5. Needs to purchase Children's liquid Tylenol for postop pain control. 6. Avoid aspirin, motrin, Advil, Aleve, Ibuprofen, Naproxyn. Tylenol is OK. 7. She needs to purchase the Celebrate multivitamins from the hospital's gift shop. 8. Will do basic preop blood work-up any day between Thursday01/16/25 and Thursday01/20/25 fasting for 12 hours and is scheduled to see the Anesthesiologist prior to the day of surgery. 9. Importance of adherence to postop folllow-up and recommendations was underscored and she understands that. 10. Continue to avoid food and bars and continue with 5 Celebrate Rebuild protein shakes (ONE scoop EACH in 8oz almond milk) at 8am-10am, 11am-1pm, 2pm- 4pm, 5pm-7pm and 8pm-10pm AND one more Celebrate Rebuild shake with TWO scoops in 8oz almond milk at 11pm to 1am 11. No soups, broths or V8 12. The patient's?medical?history has been reviewed and they are considered low risk for post op DVT and therefore DVT prophylaxis is not considered necessary. Travel after surgery was reviewed. The patient has not disclosed any travel plans during the first 30 days after surgery and they have been advised that within the first 30 days after surgery any bus, plane, train or car travel over 2 hours in duration is contraindicated due to the possibility of developing blood clots from immobility. Any travel, needs to include periods of ambulation of 10 minutes in duration every 2 hours.? Patient was instructed to discuss any plans for travel during this period with their bariatric surgeon.? 13. As of tomorrow, please check your blood pressure daily in the morning. If your blood pressure is: Below 120/70: do not take the Amlodipine or Lisinopril 121/71 to 130/80: take HALF Amlodipine 131/81 to 140/90: take HALF Amlodipine and HALF Lisinopril Over 141/91: take the whole Amlodipine and HALF Lisinopril 14. Please take at the day of surgery the following medications: Amlodipine and Lisinopril if blood pressure is high enough to justify them based on the above parameters 15. Stop any control pills and don't use them for one month after surgery 16. Absolutely no smoking or vaping, or marijuana until the surgery and for at least the first 4 weeks. Only nicotine patches are allowed. 17. Send me weight measurements on Thursday01/20/25 and then on Thursday01/26/25, the day of surgery before you go to the hospital. 18. Avoid any steroids by mouth for any reason. Let me know if someone prescribes them to you 19. These instructions supersede anything else you read in the handbook, anything you watched in videos or classes or you were told by any other provider. If there is any conflict, you follow the above instructions and nothing else. Orders: Orders Partial Thromboplastin Time 01/15/25 E11.9 - Type 2 diabetes mellitus without complications, E66.01 - Morbid (severe) obesity due to excess calories, E66.812 - Obesity, class 2, Z68.34 - Body mass index [BMI] 34.0-34.9, adult, Z68.36 - Body mass index [BMI] 36.0-36.9, adult Type and Screen 01/15/25 E11.9 - Type 2 diabetes mellitus without complications, E66.01 - Morbid (severe) obesity due to excess calories, E66.812 - Obesity, class 2, Z68.34 - Body mass index [BMI] 34.0-34.9, adult, Z68.36 - Body mass index [BMI] 36.0-36.9, adult Prothrombin Time INR 01/15/25 E11.9 - Type 2 diabetes mellitus without complications, E66.01 - Morbid (severe) obesity due to excess calories, E66.812 - Obesity, class 2, Z68.34 - Body mass index [BMI] 34.0-34.9, adult, Z68.36 - Body mass index [BMI] 36.0-36.9, adult Complete Blood Count Auto Diff 01/15/25 E11.9 - Type 2 diabetes mellitus without complications, E66.01 - Morbid (severe) obesity due to excess calories, E66.812 - Obesity, class 2, Z68.34 - Body mass index [BMI] 34.0-34.9, adult, Z68.36 - Body mass index [BMI] 36.0-36.9, adult C Reactive Protein 01/15/25 E11.9 - Type 2 diabetes mellitus without complications, E66.01 - Morbid (severe) obesity due to excess calories, E66.812 - Obesity, class 2, Z68.34 - Body mass index [BMI] 34.0-34.9, adult, Z68.36 - Body mass index [BMI] 36.0-36.9, adult Lipid Panel 01/15/25 E11.9 - Type 2 diabetes mellitus without complications, E66.01 - Morbid (severe) obesity due to excess calories, E66.812 - Obesity, class 2, Z68.34 - Body mass index [BMI] 34.0-34.9, adult, Z68.36 - Body mass index [BMI] 36.0-36.9, adult Hemoglobin A1c 01/15/25 E11.9 - Type 2 diabetes mellitus without complications, E66.01 - Morbid (severe) obesity due to excess calories, E66.812 - Obesity, class 2, Z68.34 - Body mass index [BMI] 34.0-34.9, adult, Z68.36 - Body mass index [BMI] 36.0-36.9, adult TSH reflex Free T4 01/15/25 E11. - Type 2 diabetes mellitus without complications, E66.01 - Morbid (severe) obesity due to excess calories, E66.812 - Obesity, class 2, Z68.34 - Body mass index [BMI] 34.0-34.9, adult, Z68.36 - Body mass index [BMI] 36.0-36.9, adult Insulin 01/15/25 E11.9 - Type 2 diabetes mellitus without complications, E66.01 - Morbid (severe) obesity due to excess calories, E66.812 - Obesity, class 2, Z68.34 - Body mass index [BMI] 34.0-34.9, adult, Z68.36 - Body mass index [BMI] 36.0-36.9, adult Comprehensive Met. Panel 01/15/25 E11.9 - Type 2 diabetes mellitus without complications, E66.01 - Morbid (severe) obesity due to excess calories, E66.812 - Obesity, class 2, Z68.34 - Body mass index [BMI] 34.0-34.9, adult, Z68.36 - Body mass index [BMI] 36.0-36.9, adult Medications: New pantoprazole 40 mg PO DAILY 90 tabs 0RF sucralfate 10 mL PO BID 600 mL 2RF K21.9 - Gastro-esophageal reflux disease without esophagitis ondansetron Only take one every 12 hours as needed if you have nausea 4 mg PO Q12H 20 tabs 0RF nausea and vomiting R11.0 - Nausea polyethylene glycol 3350 Mix each measuring cup with 8oz of water, Crystal light, or Gatorade zero, or Propel and do 7 measuring cups on 01/24/25 and another 7 measuring cups on 01/25/25 17 grams PO DAILY 238 grams 0RF Z01.818 - Encounter for other pr eprocedural examination
[2025-01-15 22:45] VITALS: BMI 33.7
== END 2025-01-16 16:23 | disposition home or self-care (01) ==
LOC: HO.HBS 08:15
PROVIDERS: PCP Internal Medicine; Visit Provider Surgery
DX: E66.812 Obesity, class 2 (principal); E66.01 Morbid (severe) obesity due to excess calories; Z68.36 Body mass index [BMI] 36.0-36.9, adult
CPT/HCPCS: 99214

== ENCOUNTER 2025-01-26 05:58 | Day surgery (SDC) | payer OTHER, SELFPAY ==
--- OUTSIDE RECORDS SUMMARY | 2025-01-12 12:27 | XMS_ITS | Patient Health Record ---
Author Organization [facility] Address [address] [place] [address] Care Team Providers Care Press Manager Name Role Phone Kristin Marquez Primary Care Provider Vincent Shaver Unavailable [phone] Reason For Referral No Information Medications Medication [...] Problem Status W/U Status Risk Notes Problem [id number] Encounter for screening for malignant neoplasm of colon (Z12.11) Active confirmed Problem [id number] Pre-procedural examination (Z01.818) Active confirmed Plan Of Treatment Future Test Test Name Order Date COLONOSCOPY 10/07/2016 Insurance Providers Payer Name Payer Address Payer Phone Subscriber Number Group Number Insured Name Patient Relationship to Insured Coverage Start Date Coverage End Date [facility] [address] [facility] [phone] [id number] AIDAN SIDHU Self - patient is the insured Medical (General) History Medical History History ICD Code Hypertension Denies [place],DM,CVA,Lung disease,renal dise ase Depression Describes a negative [...]
[2025-01-18 12:28] LABS: MANUAL DIFF FLAG NO
[2025-01-18 12:35] LABS: Hematocrit 35.4 % (37.0-47.0); Hemoglobin 11.6 g/dl (12.0-16.0); Imm Gran Abs Auto 0.03 X10*3/uL (0.00-0.03); Imm Gran Pct Auto 0.3 % (0.0-0.4); Lymphocytes Absolute Auto 2.2 X10*3/uL (1.2-4.9); Mean Corpuscular HGB Conc 32.8 g/dl (31.0-35.0); Mean Corpuscular Hemoglobin 27.6 pg (27.0-33.0); Mean Corpuscular Volume 84.1 fL (80.0-98.0); NRBC Abs Auto 0.000 X10*3/uL (0.0-0.012); NRBC Pct Auto 0.0 /100WBC (0.0-0.2); Platelet Count 239 X10*3/uL (160-400); Red Blood Count 4.21 X10*6/uL (4.20-5.50); White Blood Count 8.7 X10*3/uL (4.8-10.8)
[2025-01-18 12:39] LABS: INTERNATIONAL NORM RATIO 1.1 (0.9-1.1); Prothrombin Time 12.7 SEC (10.9-12.4)
[2025-01-18 12:42] LABS: Partial Thromboplastin Time 32.8 SEC (26.7-34.1)
[2025-01-18 12:54] LABS: Alanine Aminotransferase 18 U/L (0-31); Albumin Level 4.4 g/dL (3.5-5.0); Alkaline Phosphatase 97 U/L (39-117); Anion Gap 13 (12-20); Aspartate Amino Transferase 27 U/L (5-31); Blood Urea Nitrogen 16 mg/dL (9-16); Calcium 9.3 mg/dL (8.4-10.2); Carbon Dioxide 27 mmol/L (22-29); Chloride 105 mmol/L (96-108); Cholesterol 180 mg/dL (<200); Estimated Glomerular Filt Rate > 60; HDL Cholesterol 54 mg/dL (>40); Potassium 3.6 mmol/L (3.3-5.1); Sodium 141 mmol/L (135-145); Total Protein 8.1 g/dL (6.5-8.0); Triglycerides 68 mg/dL (<150)
[2025-01-18 13:15] LABS: Hemoglobin A1C 133.2982 umol/L; Total Hemoglobin (HGBA1C) 2959.2083 umol/L
[2025-01-18 15:38] VITALS: BMI 33.4
--- NOTE | 2025-01-25 08:25 | HO.ANESPROP2 ---
Documented by User: Luisa López NP 01/25/25 08:26 HPI - Anesthesia Eval Consult details Narrative: 64yo F for Gastrectomy Sleeve,EGD,possible Diaphragmatic Hernia,possible Ventral Hernia,possible Open PMFSH Active Problems Active Problems: All Active Problems Vitamin A deficiency (Acute) Vitamin D deficiency (Acute) Hypercholesterolemia (Acute) Type 2 diabetes mellitus with hyperglycemia (Acute) Uterine prolapse (Acute) Incarcerated hiatal hernia (Acute) Vaginal prolapse (Acute) Trigger finger (Acute) Asthma (Acute) Lumbar pain (Acute) Cystocele with uterine prolapse (Acute) Well woman exam (Acute) Physical exam (Acute) Hepatic steatosis (Acute) Anxiety (Acute) Anemia (Acute) Numbness and tingling in both hands (Acute) Left foot pain (Acute) Asthma (Acute) Pulmonary nodule (Acute) COVID-19 (Acute) Hypertension (Acute) Depression (Acute) BMI 34.0-34.9,adult (Acute) Diabetes (Acute) Mild recurrent major depression (Acute) Neck pain (Acute) GERD (gastroesophageal reflux disease) (Acute) Cramps of lower extremity (Acute) Family history of thyroid disease (Acute) Deep vein thrombosis (DVT) (Acute) Lab test positive for detection of COVID-19 virus (Acute) Obesity (Acute) Past Medical History Medical History Diaphragmatic hernia Hepatic steatosis BMI 34.0-34.9,adult Post-COVID chronic shortness of breath HTN (hypertension) Dyspnea on exertion Impaired glucose tolerance Diabetes Dysphagia Mild recurrent major depression Neck pain GERD (gastroesophageal reflux disease) Cramps of lower extremity Family history of thyroid disease Deep vein thrombosis (DVT) Lab test positive for detection of COVID-19 virus Obesity Family History Family History Mother Alzheimer disease Dementia Hypertension Thyroid disease Mental health disorder Father No problems noted. Maternal Aunt Ovarian cancer Family history of problems with anesthesia: No Surgical History Surgical History History of cone biopsy of cervix History of exploratory laparotomy History of colonoscopy History of esophagogastroduodenoscopy (EGD) (11/02/24) History of Problems with Anesthesia: No Social History Social History Household Members: Significant Other and Family Housing: House Are you a primary ocular care technologist to a significant other at home: No Do you presently have visiting nurse or other home services: No Alcohol intake: never Patient Tobacco Use Status: Former Tobacco user Tobacco use type: Cigarette Smoked in Last 30 Days: No e-Cigarette/Vaping Use: Never Used Second Hand Smoke Exposure: Yes Use of substances other than those prescribed or required for medical reasons: No Have you been hit, kicked, punched, or otherwise hurt by someone within the past year? 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 Current occupational exposures/hazards: No Cognitive needs: No Hearing needs: No Vision needs: Yes (Glasses) Meds Allergies Allergy/AdvReac Type Severity Reaction Status Date / Time citalopram AdvReac Intermediate restless Verified 01/26/25 06:19 leg syndrome venlafaxine AdvReac Intermediate abdominal Verified 01/26/25 06:19 pain bupropion AdvReac Mild angry Verified 01/26/25 06:19 Home Medications ?Medication ?Instructions ?Recorded ?Confirmed ?Last Taken ?Type multivitamin 01/26/25 Unknown History Exam Height,Weight and Vital Signs: Height 5 ft 1 in Weight 80.286 kg Pertinent Lab Results Pertinent Lab Results: Laboratory Tests 01/18/25 01/18/25 12:16 12:22 WBC 8.7 RBC 4.21 Hgb 11.6 L Hct 35.4 L MCV 84.1 MCH 27.6 MCHC 32.8 RDW 13.3 Plt Count 239 MPV 9.0 L Immature Gran % (Auto) 0.3 Neut % (Auto) 66.5 Lymph % (Auto) 24.9 [place] % (Auto) 6.8 Eos % (Auto) 0.9 Baso % (Auto) 0.6 Lymph # (Auto) 2.2 [place] # (Auto) 0.6 Eos # (Auto) 0.1 Baso # (Auto) 0.1 Abs Immat Gran (auto) 0.03 Absolute Neuts (auto) 5.8 Absolute Nucleated RBC 0.000 Nucleated RBC % (auto) 0.0 PT 12.7 H INR 1.1 APTT 32.8 Sodium 141 Potassium 3.6 Chloride 105 Carbon Dioxide 27 Anion Gap 13 BUN 16 Creatinine 0.71 Estim Creat Clear Calc TNP Estimated GFR > 60 Random Glucose 86 Estimat Average Glucose 134 Hemoglobin A1c % 6.3 H Insulin Level 5 Calcium 9.3 Total Bilirubin 0.4 AST 27 ALT 18 Alkaline Phosphatase 97 C-Reactive Protein 1.62 H Total Protein 8.1 H Albumin 4.4 Triglycerides 68 Cholesterol 180 LDL Cholesterol, Calc 113 H HDL Cholesterol 54 TSH 1.94 Blood Type A Positive Antibody Screen NEGATIVE Narrative Narrative: EKG 11/2024 Vent. Rate : 46 BPM Atrial Rate : 46 BPM P-R Int : 156 ms QRS Dur : 80 ms QT Int : 450 ms P-R-T Axes : 34 57 80 degrees QTcB Int : 393 ms Sinus bradycardia Otherwise normal ECG When compared with ECG of 12-Apr-2021 11:28, No significant change was found Assessment and Plan Assessment Anesthesia Assessment: Chart Reviewed Final Anesthetic Review Family History of Problems with Anesthesia: No History of Problems with Anesthesia: No Documented by User: Sondra Dodson MD 01/26/25 08:00 [facility] Past Medical History Medical History Diaphragmatic hernia Hepatic steatosis BMI 34.0-34.9,adult Post-COVID chronic shortness of breath HTN (hypertension) Dyspnea on exertion Impaired glucose tolerance Diabetes Dysphagia Mild recurrent major depression Neck pain GERD (gastroesophageal reflux disease) Cramps of lower extremity Family history of thyroid disease Deep vein thrombosis (DVT) Lab test positive for detection of COVID-19 virus Obesity Family History Family History Mother Alzheimer disease Dementia Hypertension Thyroid disease Mental health disorder Father No problems noted. Maternal Aunt Ovarian cancer Surgical History Surgical History History of cone biopsy of cervix History of exploratory laparotomy History of colonoscopy History of esophagogastroduodenoscopy (EGD) (11/02/24) Social History Social History Household Members: Significant Other and Family Housing: House Are you a primary ocular care technologist to a significant other at home: No Do you presently have visiting nurse or other home services: No Alcohol intake: never Patient Tobacco Use Status: Former Tobacco user Tobacco use type: Cigarette Smoked in Last 30 Days: No e-Cigarette/Vaping Use: Never Used Second Hand Smoke Exposure: Yes Use of substances other than those prescribed or required for medical reasons: No Have you been hit, kicked, punched, or otherwise hurt by someone within the past year? 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 Current occupational exposures/hazards: No Cognitive needs: No Hearing needs: No Vision needs: Yes (Glasses) Meds Allergies Allergy/AdvReac Type Severity Reaction Status Date / Time citalopram AdvReac Intermediate restless Verified 01/26/25 06:19 leg syndrome venlafaxine AdvReac Intermediate abdominal Verified 01/26/25 06:19 pain bupropion AdvReac Mild angry Verified 01/26/25 06:19 Home Medications ?Medication ?Instructions ?Recorded ?Confirmed ?Last Taken ?Type multivitamin 01/26/25 Unknown History Exam Airway Mallampati Class: II TM Dist: >3cm Neck ROM: Full Loose/Missing/Broken Teeth: No Heart: RRR Lungs: CTA Assessment and Plan Assessment Anesthesia Assessment: Anesthesia Plan Discussed Final Anesthetic Review NPO: Yes ASA Class: II Final Preanesthetic Review: Meds/Allgs Chart Reviewed, Consent Obtained/Reviewed and Anes Risks/Benef Reviewed Patient Risk: Low Procedure Risk: Intermediate Anesthetic Plan Anesthetic Plan: GA Disposition: Standard PACU
[2025-01-26] VITALS (12 sets, daily range): BP systolic 125–160; BP diastolic 57–87; PULSE 53–82; RESP 16–22; TEMP 36.1–36.9; O2SAT 95–100; BMI 32.6; BMI 35.1
[2025-01-26] MEDS: Lactated Ringers 1,000 ML 999 ML IV (06:34)
[2025-01-26] MEDS: Aprepitant 32 MG/4.4 ML VIAL IVPUSH (06:36)
[2025-01-26 07:12] LABS: Glucose, Whole Blood 109 mg/dL (60-115)
[2025-01-26] MEDS: Lactated Ringers 1,000 ML 100 ML IVCONT ×2 (07:29→12:24)
--- NOTE | 2025-01-26 07:34 | MHC.SHP ---
Pre-Procedural Eval Section A - 24 Hr Update-Section A only Date of Service: 01/26/25 The patient is an INPATIENT: No The patient has been examined within 24 hours of the surgical procedure. The History & Physical has been completed within 30 days and I have reviewed it.: Yes Section B - Complete if H&P > 30 days Chief Complaint: sleeve gastrectomy Relevant Family History (Specify if Yes): No Relevant Social History: None Present Medications: None Medical History: No relevant PMH History of Previous Operations: No relevant previous surgery Allergies: Allergies Allergy/AdvReac Type Severity Reaction Status Date / Time citalopram AdvReac Intermediate restless Verified 01/26/25 06:19 leg syndrome venlafaxine AdvReac Intermediate abdominal Verified 01/26/25 06:19 pain bupropion AdvReac Mild angry Verified 01/26/25 06:19 Review of Systems Sugical H&P ROS: Negative: Constitution, Cardiovascular, Respiratory, Neurological, Psychiatric, Hem-Onc, Allergic/Immunologic, Gastrointestinal, Genitourinary, Musculoskeletal, Integumentary, Endocrine and Eyes/Ears/Nose/Throat Exam Surgical H&P Exam: Normal: HEENT, Normal: Heart, Normal: Lungs, Normal: Extremities, Normal: Abdomen, Normal: Skin and Normal: Neurological Plan Diagnosis/Plan: Unchanged I have reviewed the history and physical and performed a pertinent physical examination on my patient. No changes have occurred unless specified. Time Spent With Patient Time: Total time managing care of this patient today ____ minutes.
--- NOTE | 2025-01-26 07:35 | PM.OP ---
Brief Operative Note Date of Service: 01/26/25 Pre-op diagnosis: Severe obesity with comorbidities (see below) Post-op diagnosis: same (moderate size incarcerated diaphragmatic hernia) Procedure: INITIAL PATIENT BMI ON PRESENTATION AT OUR OFFICE: 36.8 kg/m2 LAST BMI BEFORE SURGERY: 33.7 kg/m2 COMORBIDITIES: hypertension, non-insulin dependent diabetes, GERD, asthma, diaphragmatic hernia, liver steatosis ?The patient presented to the Weight Management Program with significant obesity that was negatively impacting the patient's comorbidities as listed above.? The program is a phased program with a special focus on preoperative medical weight management to promote substantial weight loss and prepare the patients for the second phase of the program: bariatric surgery. The patient participated in an intensive weekly lifestyle ?intervention and exercise program during which the patient ?has lost between the initial office visit and the last preoperative visit 18.8lbs, or 9.64% of initial actual body weight. It was deemed appropriate for the patient to now have bariatric surgery. In light of the current Covid-19 pandemic and the well documented strong association of obesity and increased risk of worse outcomes if infected with Covid-19 (REFERENCES:https://pubmed.ncbi.nlm.nih.gov/07951390/,?https://pubmed.ncbi.nlm.nih.gov/56671667/), any delay in undergoing bariatric surgery may lead to the patient's worsening health condition and increased?risk of more severe Covid-19 disease if infected. In addition a recent?study from [facility] published in [employer] [facility] on 04/22/2021 ([email or web address]) found that, among patients with obesity, substantial weight loss achieved with surgery was associated with improved outcomes of COVID-19 infection. The findings suggest that obesity can be a modifiable risk factor for the severity of COVID-19 infection. In addition, the patient met the BMI-criteria for bariatric surgery based on the BMI on initial presentation. The patient should not be penalized for achieving such weight loss because ?it is not sustainable long-term without surgical intervention and it was achieved in preparation for bariatric surgery ?under my direction and based on my published research ([email or web address]).[email or web address] and?[email or web address].soard.org/article/[email or web address])66734-X/pdf) ?that a 10% preoperative weight loss improves long-term weight loss after surgery and reduces perioperative complications.? Insurance carriers such as [facility] have endorsed my recommendations ?and have included in their policies criteria to include a 10% preoperative weight loss requirement. PROCEDURE: Esophago-gastroscopy, laparoscopic repair of incarcerated diaphragmatic hernia, laparoscopic lysis of adhesions, laparoscopic sleeve gastrectomy and laparoscopic gastropexy INDICATIONS: This is a 64 year-old female who was electively scheduled for laparoscopic, possibly open sleeve gastrectomy. The risks and complications of the procedure were discussed with the patient in advance, particularly the possibility of ; pulmonary embolism; staple line leak; bleeding; GERD; cardiac, pulmonary, or renal complications; as well as long-term problems such as insufficient weight loss, vitamin deficiency, strictures, or ulcers. The patient understood all the risks, and was in agreement to proceed with surgery. DESCRIPTION OF PROCEDURE: After informed consent was obtained from the patient, the patient was given preoperative antibiotics, and was transferred to the operating room. After successful induction of general anesthesia, pneumatic compression devices were placed on both lower extremities. An upper endoscopy was performed next. The oropharynx and esophagus appeared to be within normal limits. There was a diaphragmatic hernia present of moderate size consistent with the findings of the preoperative upper GI. The stomach was entered. Then after all fluid and air were suctioned and the stomach was fully decompressed, the scope was withdrawn and secured in the mid esophagus. The patient was then prepped and draped in the usual sterile manner, and abdominal access was established at the right upper quadrant with the Cain technique. A 12 mm blunt port was inserted, and the abdomen was insufflated with CO2 to a pressure of 15 mmHg. Under direct visualization, additional ports were placed, specifically two 5 mm Versi-step ports to the left upper quadrant, and a 5 mm Versi-Step port to the right upper quadrant. 1% lidocaine plain was used to infiltrate all port sites as well as all fascia defects. Following that, the patient was placed in a steep reverse Trendelenburg position. An additional 5 mm port was placed to the right flank for the Mediflex retractor that was used to retract the left lobe of the liver. The gastro-esophageal fat pad was opened with the ultrasonic device (Thunderbeat, Olympus) and the anterior esophagus and hiatus were exposed. The angle of His was opened with the ultrasonic device the fundus of the stomach from any diaphragmatic and splenic attachments. I then opened the gastrocolic ligament between the transverse colon and the greater curvature of the stomach with the ultrasonic device to enter the lesser sac and facilitate the ligation of the short gastric vessels. I started at a mid-point along the greater curvature and using the Thunderbeat, all short gastric vessels were divided all the way to the angle of His until the left jules was completely dissected at its entirety. I then divided the gastro-colic ligament distally to a distance of about 3-4 cm proximal to the pylorus. There were extensive congenital adhesions between the pancreas and posterior gastric wall. Those were lysed completely with the ultrasonic device. Adhesiolysis took approximately 45 min to complete. There was an obvious significant-sized hiatal hernia. I continued dissecting along the hiatus toward the left jules and the angle of His. I fully mobilized the fat pad that was incarcerated in the hernia. I then continued by dissecting even further into the posterior retro-esophageal space all the way to the angle of His. I continued to mobilize the esophagus into the mediastinum circumferentially. Both vagal nerves were seen and preserved. At that point, I was able to have at least 3 to 5 cm of esophagus into the abdomen.? After I completely mobilized the esophagus from both the left and right jules and I had a good mobilization of the esophagus circumferentially, I closed the hernia defect with three interrupted #0 Surgidac sutures using the Endo Stitch device, two of which were placed posterior and one of which anterior to the esophagus. ? The stomach was then divided transversely with two Endo MATTHEW-45 purple and four MATTHEW-60 articulating purple loads using the Myshaadi.inIA stapler and loads. Every effort was made that the gastric sleeve had a tubular shape and an even caliber throughout. Once the sleeve resection was completed, the staple line of the gastric sleeve was reinforced with Hemoclips. The resected stomach was retrieved without difficulty from the Cain port. A gastropexy was then performed in order to prevent postoperative GERD and partial gastric volvulus. Several interrupted 2.0 Surgidac sutures were placed between the sleeve's staple line and the previously divided greater omentum and gastro-colic ligament using the Endo-Stitch device. ?An upper endoscopy was performed. There was no narrowing at the GE junction. The scope was easily advanced all the way to the pylorus which was clearly visualized. There was no narrowing anywhere and the sleeve's caliber was even throughout. The sleeve's staple line was inspected and there was no evidence of ischemia, bleeding or dehiscence. At that point the gastroscope was withdrawn from the patient?s mouth while we were decompressing the bowel and the stomach from any remaining air. I looked into the lesser sac to see how the sleeve was situating and it was situating well. There was no bleeding from the staple line, spleen, or short gastric vessels. The Mediflex retractor was removed, and the undersurface of the liver was inspected and there was no bleeding. The patient was placed in supine position. I closed the fascial defect of the 12 mm port site with a figure of eight #1 Polysorb suture. Then 30cc Ropivacaine plain with 10 mg of Dexamethasone were used to infiltrate the fascial closure as well as all skin incisions. At this point, the abdomen was deflated, all ports were removed under direct vision, and no bleeding was noted from any of the port sites. The skin incisions were irrigated with saline and were closed with 4-0 absorbable monofilament sutures. Steri-Strips and OpSites were used to cover all incisions. The patient was extubated and was transferred in stable condition to the recovery room for further care. I was present and performed all huggins parts of the procedure. 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 There were no residents to assist with this case. Hector Alex MD, PhD, FACS Surgeon: Berry Alex MD Anesthesia: local and other (TAP block) Was an Website Programmer used for this Procedure?: No Website Programmer: Demi Jack Estimated blood loss (mL): 10 IV fluids (mL): 2,500 Urine output (mL): 0 (No Martinez to record output) Pathology: other (1) Stomach, 2) Gastro-esophageal fat pad) Condition: stable Disposition: PACU
--- NOTE | 2025-01-26 07:39 | PM.PNGS ---
Subjective Subjective Date of Service: 01/27/25 Interval history: Feels well. Mild incisional pain. She is tolerating phase 1 bariatric diet Physical Exam Vital Signs: Vital Signs: Last Vital Signs Temp 97.4 F 01/26/25 06:29 Pulse 64 01/26/25 06:29 Resp 16 01/26/25 06:29 BP 132/57 L 01/26/25 06:29 Pulse Ox 99 01/26/25 06:29 O2 Del Method Room Air 01/26/25 06:29 BMI result Body Mass Index 32.6 GI: Inspection: Yes normal to inspection, Yes incision (clean, dry and intact) and Yes obesity Palpation (GI): Soft to palpation Extrem: Right lower extremity: normal to inspection (no calf tenderness) Left lower extremity: normal to inspection (no calf tenderness) Objective Data Active Medications Albuterol Sulfate (Albuterol Sulfate (0.083%) 2.5 Mg/3 Ml Vial.Neb) 2.5 mg INHALE ONCE PRN PRN Reason: Shortness of Breath/Wheezing Lactated Ringer's (Lr) 1,000 mls @ 100 mls/hr IVCONT .Q10H [facility] Stop: 01/26/25 10:14 Last Admin: 01/26/25 07:29 Dose: 100 mls/hr Documented By: MIRNA Lactated Ringer's (Lr) 1,000 mls @ 999 mls/hr IV .Q1H1M [facility] Stop: 01/26/25 08:15 Last Admin: 01/26/25 06:34 Dose: 999 mls/hr Documented By: MIRNA Labs 01/27/25 05:31 01/27/25 05:31 Labs: Laboratory Results - last 24 hr 01/26/25 06:55 POC Glucose 109 Procedures Date of Service Date of Service: 01/27/25 Progress Note: A&P Assessment and plan (1) Obesity: Status: Acute Assessment and Plan: s/p laparoscopic sleeve gastrectomy, lysis of adhesions, diaphragmatic hernia repair and gastropexy Doing well Will check am labs and if OK the patient will be discharged home (2) BMI 33.0-33.9,adult: Status: Acute (3) Type 2 diabetes mellitus with hyperglycemia: Status: Acute (4) Hypertension: Status: Acute (5) Hypercholesterolemia: Status: Acute (6) Depression: Status: Acute (7) Anxiety: Status: Acute (8) Hepatic steatosis: Status: Acute (9) GERD (gastroesophageal reflux disease): Status: Acute (10) Diaphragmatic hernia: Status: Acute (11) S/P repair of paraesophageal hernia: Status: Acute (12) Congenital intra-abdominal adhesions: Status: Acute Time Spent With Patient Time: Total time managing care of this patient today ____ minutes. Quality Stroke Does the patient have a stroke diagnosis?: No VTE Prior VTE?: No VTE Risk Level:: Surgical - moderate VTE Device Contraindication: N/A - Device Ordered VTE Drug Contraindication: N/A - Med Ordered
--- NOTE | 2025-01-26 08:10 | PHA.MEDREC ---
Pharmacy Consult ? Medication Reconciliation Pharmacy has completed the medication reconciliation. Reviewed med rec done by nursing.
[2025-01-26 11:38] LABS: Hematocrit 38.6 % (37.0-47.0); Hemoglobin 12.2 g/dl (12.0-16.0)
[2025-01-26 11:47] LABS: Anion Gap 12 (12-20); Blood Urea Nitrogen 6 mg/dL (9-16); Calcium 9.1 mg/dL (8.4-10.2); Carbon Dioxide 25 mmol/L (22-29); Chloride 107 mmol/L (96-108); Creatinine Clr Calc Pharmacy 84.9; Estimated Glomerular Filt Rate > 60; Potassium 3.1 mmol/L (3.3-5.1); Sodium 141 mmol/L (135-145)
[2025-01-26] MEDS: KCl 20 mEq in 0.9 % Sodium ChL 20 MEQ/1,000 ML IV.SOLN 125 MEQ IVCONT ×2 (14:56→21:31)
--- NOTE | 2025-01-26 14:58 | P.DS_ITS ---
DS: Providers Provider Date of Service: 01/27/25 Date of admission: 01/26/25 06:09 Date of discharge: 01/27/25 Primary care physician: Kristin Carpenter MD DS: Diagnosis Discharge Diagnosis (1) Obesity: Status: Acute (2) BMI 33.0-33.9,adult: Status: Acute (3) Type 2 diabetes mellitus with hyperglycemia: Status: Acute (4) Hypertension: Status: Acute (5) Hypercholesterolemia: Status: Acute (6) Depression: Status: Acute (7) Anxiety: Status: Acute (8) Hepatic steatosis: Status: Acute (9) GERD (gastroesophageal reflux disease): Status: Acute (10) Diaphragmatic hernia: Status: Acute (11) S/P repair of paraesophageal hernia: Status: Acute (12) Congenital intra-abdominal adhesions: Status: Acute DS: Summary Hospital Course Hospital Course: ADMITTING DIAGNOSIS: obesity, HLD, T2DM, asthma, back pain, hepatic steatosis, anxiety, anemia, HTN, Depression, GERD, hx DVT DISCHARGE DIAGNOSIS: same, s/p laparoscopic sleeve gastrectomy and gastropexy with diaphragmatic hernia repair PAST SURGICAL HISTORY:? History of cone biopsy of cervix History of exploratory laparotomy History of colonoscopy History of esophagogastroduodenoscopy (EGD) PROCEDURE: upper endoscopy, laparoscopic sleeve gastrectomy and gastropexy with diaphragmatic hernia repair DISCHARGE SUMMARY: History of Present Illness: The patient is a?64 year-old woman with a BMI of?35.1 kg/m2 and associated co- morbidities as described above. The patient had extensive work-up, lost?9.4 lbs preoperatively and was electively scheduled for laparoscopic, possible open sleeve gastrectomy and gastropexy. Risks and complications of the surgery were discussed with the patient in advance, particularly the possibility of , pulmonary embolism, anastomotic leak, bleeding, bowel injury, GERD, cardiac, renal or pulmonary complications. The patient understood all the risks and was in agreement with the surgical plan. Hospital Course: The patient underwent an uneventful laparoscopic sleeve gastrectomy with gastropexy and repair of diaphragmatic hernia on the day of admission. Postoperatively, the patient was transferred to the surgical floor. The patient received IV acetaminophen and IV Dilaudid for pain control. Patient was started on bariatric phase 1 diet POD #0. On postoperative day one, the patient was feeling well without nausea, vomiting, fevers, or tachycardia. The patient had some mild incisional pain and the abdomen was soft.? ? On the morning of postoperative day one, the patient was continued on 1 ounce of water or ice every half hour. During the day, the patient did fairly well, having some incisional pain, but able to ambulate adequately and to tolerate liquids well. Since the patient is doing well, we decided that the patient was ready to be discharged. The patient was given instructions to follow-up in office next week and to call the office for any fever over 101, persistent abdominal pain, nausea, vomiting, GERD, symptoms of DVT such as calf tenderness, or leg swelling, or pulmonary embolism such as chest pain or shortness of breath.? The patient was also instructed to drink 40-60 ounces of liquids per day using the 1-ounce cups. The patient had been given prescriptions for Tylenol for pain, Zofran prn for nausea, and pantoprazole and carafate previously. The patient was encouraged to ambulate and use the incentive spirometer. The patient was allowed to shower, but no baths, and encouraged to stay active at home. All of these instructions were given to the patient personally. All questions were answered and the patient understood all instructions, the instructions were also given to the patient in print. Time Attestation Discharge Coordination Time (in mins): 30 Quality: Safe Use of Opioids Does Pt have an Active Cancer Diagnosis on the Problem List?: No Quality: Stroke Does the patient have a stroke diagnosis?: No Physical Exam Vital Signs: Vital Signs: Last Vital Signs Temp 96.9 F 01/26/25 12:06 Pulse 82 01/26/25 12:06 Resp 17 01/26/25 12:06 BP 159/87 H 01/26/25 12:06 Pulse Ox 95 01/26/25 12:06 O2 Del Method Room Air 01/26/25 12:06 O2 Flow Rate 2 01/26/25 11:40 BMI result Body Mass Index 35.1 DS: Data Data Completed and Pending Pending studies at discharge: Pending at discharge 01/26/25 09:56 Surgical [PTH] Routine Labs on day of discharge: Laboratory Results - last 24 hr 01/26/25 01/26/25 06:55 11:29 Hgb 12.2 Hct 38.6 Sodium 141 Potassium 3.1 L Chloride 107 Carbon Dioxide 25 Anion Gap 12 BUN 6 L Creatinine 0.65 Estim Creat Clear Calc 84.9 Estimated GFR > 60 POC Glucose 109 Random Glucose 185 H Calcium 9.1 Discharge Plan Discharge Patient Disposition: Home, Self-Care Referrals: Kristin Marquez MD [Primary Care Provider, Internal Medicine] - 1 Week Discharge Medications: Continued fluticasone furoate-vilanterol [Breo Ellipta] 200-25 mcg/dose blister with device 1 inh inhalation DAILY 30 Days Qty: 1 12RF pantoprazole 40 mg tablet,delayed release (DR/EC) 40 mg PO DAILY Qty: 90 0RF ondansetron 4 mg tablet,disintegrating 4 mg PO Q12H Qty: 20 0RF Rx Instructions: Only take one every 12 hours as needed if you have nausea Held amlodipine 10 mg tablet 10 mg PO DAILY 90 Days Qty: 90 1RF Hold Instructions: Resume on 01/28/25. Check your blood pressure every morning as soon as you wake up and send it to Dr. Alex. Do no take the blood pressure medication if the blood pressure is below 120/70. Wait every day to hear back from Dr. Alex before you take the medication. lisinopril 5 mg tablet 5 mg PO DAILY Qty: 30 4RF Hold Instructions: Resume on 01/27/25. Only resume according to parameters given by Dr Alex Discharge Orders: Discharge Order (Routine); Ordered 01/27/25 Ordered By: Berry Alex Activity on Discharge: No heavy lifting Stand Alone Forms: Patient Portal Discharge page Print Language: Upper Sorbian Discharge Date/Time: 01/27/25 09:59
[2025-01-26] MEDS: 0.9 % Sodium Chloride Flush 3 ML SYRINGE IVFLUSH (20:04)
[2025-01-27 03:17] VITALS: BP 136/64; PULSE 56; RESP 18; TEMP 36.6; O2SAT 97
[2025-01-27] MEDS: KCl 20 mEq in 0.9 % Sodium ChL 20 MEQ/1,000 ML IV.SOLN 125 MEQ IVCONT (04:35)
[2025-01-27 06:03] LABS: MANUAL DIFF FLAG NO
[2025-01-27 06:24] LABS: Hematocrit 35.5 % (37.0-47.0); Hemoglobin 11.3 g/dl (12.0-16.0); Imm Gran Abs Auto 0.06 X10*3/uL (0.00-0.03); Imm Gran Pct Auto 0.6 % (0.0-0.4); Lymphocytes Absolute Auto 1.3 X10*3/uL (1.2-4.9); Mean Corpuscular HGB Conc 31.8 g/dl (31.0-35.0); Mean Corpuscular Hemoglobin 27.6 pg (27.0-33.0); Mean Corpuscular Volume 86.8 fL (80.0-98.0); NRBC Abs Auto 0.000 X10*3/uL (0.0-0.012); NRBC Pct Auto 0.0 /100WBC (0.0-0.2); Platelet Count 212 X10*3/uL (160-400); Red Blood Count 4.09 X10*6/uL (4.20-5.50); White Blood Count 10.4 X10*3/uL (4.8-10.8)
[2025-01-27 06:53] LABS: Blood Urea Nitrogen 8 mg/dL (9-16); Calcium 8.7 mg/dL (8.4-10.2); Creatinine Clr Calc Pharmacy 95.6; Estimated Glomerular Filt Rate > 60
[2025-01-27 07:02] LABS: Anion Gap 11 (12-20); Carbon Dioxide 24 mmol/L (22-29); Chloride 111 mmol/L (96-108); Potassium 4.3 mmol/L (3.3-5.1); Sodium 142 mmol/L (135-145)
[2025-01-27 08:00] VITALS: BP 138/66; PULSE 56; RESP 17; TEMP 36.2; O2SAT 95
--- NOTE | 2025-01-27 08:30 | HO.POSTANES ---
Post Anesthesia Evaluation Post Anesthesia Evaluation Date of Service: 01/27/25 Vital Signs: Vital Signs Temp Pulse Resp BP Pulse Ox O2 Del Method 01/27/25 03:17 97.8 F 56 18 136/64 97 Room Air 01/26/25 23:58 98.0 F 53 18 125/59 L 95 Room Air Anesthesia: General Mental Status: Awake Pain Control: Satisfactory Nausea/Vomiting: None Hydration: Adequate Anesthesia-Related Issues: No Anes. Related Issues
--- NOTE | 2025-01-27 10:22 | MHC.CM.PN ---
Patient dc'd home self care via private transport prior to CM assessment.
== END 2025-01-27 09:59 | disposition home or self-care (01) ==
LOC: HO.SSS 05:58 → HO.S3 14:52
PROVIDERS: Physician Assistant Surgical; PCP Internal Medicine; Visit Provider Surgery
PROC: (CPT 43845; principal; 2025-01-26 07:30)
DX: E66.01 Morbid (severe) obesity due to excess calories (principal); Z68.36 Body mass index [BMI] 36.0-36.9, adult; K21.9 Gastro-esophageal reflux disease without esophagitis; K76.0 Fatty (change of) liver, not elsewhere classified; K44.9 Diaphragmatic hernia without obstruction or gangrene; Q43.3 Congenital malformations of intestinal fixation; R13.10 Dysphagia, unspecified; I10 Essential (primary) hypertension; E11.65 Type 2 diabetes mellitus with hyperglycemia; E78.00 Pure hypercholesterolemia, unspecified; Z83.49 Family history of other endocrine, nutritional and metabolic diseases; F32.A Depression, unspecified; F41.9 Anxiety disorder, unspecified; Z79.51 Long term (current) use of inhaled steroids; Z79.899 Other long term (current) drug therapy; Z88.8 Allergy status to other drugs, medicaments and biological substances; Z98.890 Other specified postprocedural states; Z87.891 Personal history of nicotine dependence
CPT/HCPCS: 43775; 43281; 43659; 36415; 80048; 80053; 80061; 82947; 83036; 83525; 84443; 85014; 85018; 85025; 85610; 85730; 86140; 86850; 86900; 86901; 88304; 88307; 88342; A4649; C9145; J0131; J0690; J1100; J1308; J2003; J2250; J2405; J2704; J2795; J3010; J3480; J7120

== ENCOUNTER → 2025-01-26 06:09 | Outpatient (BNV) | payer OTHER, SELFPAY | PROVIDERS: Admitting Provider Physician Assistant Surgical; PCP Internal Medicine; Visit Provider Surgery | DX: E66.9 Obesity, unspecified (principal); Z68.33 Body mass index [BMI] 33.0-33.9, adult; K44.9 Diaphragmatic hernia without obstruction or gangrene | CPT/HCPCS: 43659; 43775; 99024 ==

== ENCOUNTER 2025-01-30 20:25 | Emergency (ER) | payer OTHER, SELFPAY ==
[2025-01-30 20:45] VITALS: BP 166/72; PULSE 74; RESP 18; TEMP 36.7; O2SAT 98; BMI 31.9
--- NOTE | 2025-01-30 20:56 | ED_ITS ---
HPI - General Adult General Chief complaint: General Medical Stated complaint: checked out after fall (recent hernia surg) Time Seen by Provider: 01/30/25 20:56 Source: patient Mode of arrival: ambulatory Limitations: no limitations History of Present Illness ED Provider: Dr. Clarisa Teran HPI narrative: Patient comes to the emergency room complaining of a small abrasion on the right knee after tripping and falling. Patient states that other than the abrasion, she has no knee pain, does not have any other injuries, is not on blood thinners. Patient states that she got scared because a few days ago she had lap band surgery done. Patient states that she just got a phone call back from Dr. Alex and was instructed to go home no further workup needed Related Data Previous Rx's ?Medication ?Instructions ?Recorded fluticasone furoate 200 1 inh inhalation DAILY 30 da ys #1 06/06/23 mcg-vilanterol 25 mcg/dose ea inhalation powder (Breo Ellipta) lisinopril 5 mg tablet 5 mg PO DAILY #30 tabs 10/17 Held on 01/27/25. Instructions: Resume on 01/27/25. Only resume according to parameters given by Dr Alex amlodipine 10 mg tablet 10 mg PO DAILY 90 days #90 t abs 01/11/25 Held on 01/27/25. Instructions: Resume on 01/28/25. Check your blood pressure every morning as soon as you wake up and send it to Dr. Alex. Do no take the blood pressure medication if the blood pressure is below 120/70. Wait every day to hear back from Dr. Alex before you take the medication. ondansetron 4 mg disintegrating 4 mg PO Q12H nausea an d vomiting 01/15/25 tablet #20 tabs pantoprazole 40 mg tablet,delayed 40 mg PO DAILY #90 t abs 01/15/25 release Allergies Allergy/AdvReac Type Severity Reaction Status Date / Time citalopram AdvReac Intermediate restless Verified 01/30/25 20:47 leg syndrome venlafaxine AdvReac Intermediate abdominal Verified 01/30/25 20:47 pain bupropion AdvReac Mild angry Verified 01/30/25 20:47 Review of Systems Review of Systems: Constitutional : No Weight loss, No Fever, No Chills, No Night Sweats, No Fatigue, No Malaise ENT/Mouth : No Hearing loss, No Ear Pain, No Nasal Congestion, No Sinus Pain, No Hoarseness, No sore throat, No Rhinorrhea, No Swallowing Difficulty Eyes: No Eye Pain, No Swelling, No Redness, No Foreign Body, No Discharge, No Vision Changes Cardiovascular : No Chest Pain, No SOB, No Dyspnea on Exertion, No Orthopnea, No Edema, No Palpitations Respiratory : No Cough, No Sputum, No Wheezing, No Smoke Exposure, No Dyspnea Gastrointestinal : No Nausea, No Vomiting, No Diarrhea, No Constipation, No abdominal Pain, No Hematochezia, No Melena Genitourinary : no irregular bleeding, No Dysuria, No Urinary Frequency, No Hematuria, No Urinary Incontinence, No Urgency, No Flank Pain, No Urinary Flow Changes, No Hesitancy Musculoskeletal : No joint pain, No Myalgias, No Joint Swelling Skin : Complaining of a small superficial abrasion to the right knee Neuro : No Weakness, No Numbness, No Paresthesias, No Loss of Consciousness, No Dizziness, No Headache Psych : No Anxiety/Panic, No Depression, No SI/HI/AH/VH, No Social Issues, Heme/Lymph: No Bruising, No Bleeding,No Lymphadenopathy Endocrine : No Polyuria, No Polydipsia, No Temperature Intolerance PMFSH Past Medical History Medical History Diaphragmatic hernia Hepatic steatosis BMI 34.0-34.9,adult Post-COVID chronic shortness of breath HTN (hypertension) Dyspnea on exertion Impaired glucose tolerance Diabetes Dysphagia Mild recurrent major depression Neck pain GERD (gastroesophageal reflux disease) Cramps of lower extremity Family history of thyroid disease Deep vein thrombosis (DVT) Lab test positive for detection of COVID-19 virus Obesity Surgical History History of cone biopsy of cervix History of exploratory laparotomy History of colonoscopy History of esophagogastroduodenoscopy (EGD) (11/02/24) Family History Family History Mother Alzheimer disease Dementia Hypertension Thyroid disease Mental health disorder Father No problems noted. 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 Oriented X3. No acute distress. Eyes: Pupils equal, round and reactive to light. ENT: Pharynx normal. Neck: Normal inspection. Neck supple. No lymph nodes noted. No crepitus CVS: Normal heart rate and rhythm. Pulses normal. Normal S1 and S2 Respiratory: No respiratory distress. Breath sounds normal. No Wheezing. No rales Abdomen: Soft and nontender. No rigidity. No distention. Skin: Skin warm and dry. Normal skin color. Normal skin turgor. Superficial abrasion to the right knee Extremities: No lower extremity edema. No Lacerations. No Rash, patient ambulatory, patient able to flex and extend the knee with no pain, no erythema Neuro: Oriented X 3. No motor deficit. No sensory deficit. Moving all extremities. No slurred speech. CN 2 through 12 grossly intact Psych: calm, cooperative, normal affect Vital Signs: Vital Signs - 24 hr 01/30/25 20:45 Temperature 98.1 F Pulse Rate 74 Respiratory Rate 18 Blood Pressure 166/72 H Pulse Oximetry 98 Oxygen Delivery Method Room Air BMI result Body Mass Index 31.9 Medical Decision Making Medical Decision Making MDM Narrative: Patient has a small abrasion to the right knee. Does not seem infected, no bleeding. Also, Dr. Alex instructed the patient that she may go home, no further workup needed Discharge Plan Discharge Clinical Impression: Abrasion of skin Patient Disposition: Home, Self-Care Instructions: Abrasion (ED) Additional Instructions: Please follow-up with your primary care physician tomorrow. If you have any worsening or new symptoms, please return to the emergency room or call 911 Prescriptions: No Action fluticasone furoate-vilanterol [Breo Ellipta] 200-25 mcg/dose blister with device 1 inh inhalation DAILY 30 Days Qty: 1 12RF amlodipine 10 mg tablet 10 mg PO DAILY 90 Days Qty: 90 1RF lisinopril 5 mg tablet 5 mg PO DAILY Qty: 30 4RF pantoprazole 40 mg tablet,delayed release (DR/EC) 40 mg PO DAILY Qty: 90 0RF ondansetron 4 mg tablet,disintegrating 4 mg PO Q12H Qty: 20 0RF Rx Instructions: Only take one every 12 hours as needed if you have nausea Print Language: Urdu
--- OUTSIDE RECORDS SUMMARY | 2025-01-30 20:59 | XMS_ITS | Patient Health Record ---
Author Organization [facility] Address [address] [place] [address] Care Team Providers Care On Site Manager Name Role Phone Kristin Marquez Primary Care Provider Vincent Shaver Unavailable [phone] Reason For Referral No Information Medications Medication [...] Problem Status W/U Status Risk Notes Problem [id number] Encounter for screening for malignant neoplasm of colon (Z12.11) Active confirmed Problem [id number] Pre-procedural examination (Z01.818) Active confirmed Plan Of Treatment Future Test Test Name Order Date COLONOSCOPY 10/07/2016 Insurance Providers Payer Name Payer Address Payer Phone Subscriber Number Group Number Insured Name Patient Relationship to Insured Coverage Start Date Coverage End Date [facility] [address] [facility] [phone] [id number] AIDAN SIDHU Self - patient is the insured Medical (General) History Medical History History ICD Code Hypertension Denies MS,DM,CVA,Lung disease,renal dise ase Depression Describes a negative [...]
[2025-01-30 21:17] VITALS: BP 166/72; PULSE 74; RESP 18; TEMP 36.7; O2SAT 98
== END 2025-01-30 21:17 | disposition home or self-care (01) ==
PROVIDERS: Emergency Provider Emergency Medicine; PCP Internal Medicine
DX: S80.211A Abrasion, right knee, initial encounter (principal); W01.0XXA Fall on same level from slipping, tripping and stumbling without subsequent striking against object, initial encounter; Y93.9 Activity, unspecified; Y92.9 Unspecified place or not applicable; Y99.9 Unspecified external cause status
CPT/HCPCS: 99282; 99283

== ENCOUNTER 2025-02-01 15:38 | Outpatient (AMB) | payer OTHER, SELFPAY ==
--- NOTE | 2025-02-01 15:49 | MHC.OFFVISWM ---
VS Expanded 02/01/25 16:08 BP 132/62 Blood Pressure Location Rt brachial Blood Pressure Position Sitting Pulse 64 Pulse Source Pulse Oximeter Temp 96.8 F Temperature Source Temporal Artery Scan Pulse Oximetry 97 Oxygen Delivery Method Room Air Height 5 ft 1 in Weight 166 lb 9.6 oz BMI 31.5 Body Fat % 44.0 Body Fat Mass 73.2 Fat Free Mass 3.2 Visceral Fat Rating 12.0 Body Water % 39.6 Body Water Mass 66.0 Muscle Mass/Score 88.4 Basal Metabolic Rate/Score 1,309 Intake Visit Reasons: (OV) PO LSG 01/26/25 Allergies citalopram Adverse Reaction (Intermediate, Verified 02/01/25 16:09) restless leg syndrome venlafaxine Adverse Reaction (Intermediate, Verified 02/01/25 16:09) abdominal pain bupropion Adverse Reaction (Mild, Verified 02/01/25 16:09) angry Medication List - Last Reconciled 02/01/25 by DARBY Escalante amlodipine 10 mg PO DAILY 90 days Held on 01/27/25. Instructions: Resume on 01/28/25. Check your blood pressure every morning as soon as you wake up and send it to Dr. Alex. Do no take the blood pressure medication if the blood pressure is below 120/70. Wait every day to hear back from Dr. Alex before you take the medication. fluticasone furoate-vilanterol 200-25 mcg/dose (Breo Ellipta) 1 inh inhalation DAILY 30 days lisinopril 5 mg PO DAILY Held on 01/27/25. Instructions: Resume on 01/27/25. Only resume according to parameters given by Dr Alex ondansetron 4 mg PO Q12H pantoprazole 40 mg PO DAILY HPI Comments Details: Pt is s/p LSG with HHR 01/25/2025. No pain. No nausea. Tolerating 3 Celebrate shakes, 1 scoop each in 8oz liquid. Hydration is adequate, getting 48oz per day. BP- checking daily, has not needed lisinopril the last few days. [facility] Medical History (Updated 01/31/25 @ 00:01 by Background Damarcia) Diaphragmatic hernia Hepatic steatosis BMI 34.0-34.9,adult Post-COVID chronic shortness of breath HTN (hypertension) Dyspnea on exertion Impaired glucose tolerance Diabetes Dysphagia Mild recurrent major depression Neck pain GERD (gastroesophageal reflux disease) Cramps of lower extremity Family history of thyroid disease Deep vein thrombosis (DVT) Lab test positive for detection of COVID-19 virus Obesity Surgical History (Updated 02/01/25 @ 16:10 by Jade Gutierrez [facility]) S/P gastric sleeve procedure History of cone biopsy of cervix History of exploratory laparotomy History of colonoscopy History of esophagogastroduodenoscopy (EGD) (11/02/24) Family History Mother Alzheimer disease Dementia Hypertension Thyroid disease Mental health disorder Father No problems noted. 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 Current occupational exposures/hazards: No Cognitive needs: No Hearing needs: No Vision needs: Yes (Glasses) Physical Exam Vital Signs: Last Vital Signs Temp 96.8 F 02/01/25 16:08 Pulse 64 02/01/25 16:08 BP 132/62 02/01/25 16:08 Pulse Ox 97 02/01/25 16:08 Oxygen Delivery Method Room Air 02/01/25 16:08 BMI result Body Mass Index 31.5 Const General: cooperative, comfortable and no acute distress Orientation/consciousness: patient oriented x3 GI Other: soft, nontender, nondistended, steri-strips c/d/i Neuro General: patient oriented x3 Assessment & Plan Assessment & Plan (1) S/P repair of paraesophageal hernia: Code(s): Z98.890 - Other specified postprocedural states; Z87.19 - Personal history of other diseases of the digestive system Category: Surgical Plan May shower tomorrow but no bath or submersion of abdomen in water. May start exercise in 2 days.? No abdominal exercises x 6 weeks. Abdominal binder for the next 2 weeks with activity or exercise. Continue meal plan per Dr Watson until next f/u in 5 weeks. Reviewed pantoprazole and carafate dosing. Reminded of the pace of drinking 2 mL/min or 1oz per 15 min. Will be emailed link for post op video for review.
[2025-02-01 16:08] VITALS: BP 132/62; PULSE 64; TEMP 36; O2SAT 97; BMI 31.5
== END 2025-02-01 16:43 | disposition home or self-care (01) ==
LOC: HO.HBS 15:39
PROVIDERS: PCP Internal Medicine; Visit Provider Physician Assistant Surgical
DX: E66.9 Obesity, unspecified (principal); Z68.31 Body mass index [BMI] 31.0-31.9, adult; Z98.890 Other specified postprocedural states; Z87.19 Personal history of other diseases of the digestive system; Z90.3 Acquired absence of stomach [part of]; Z98.84 Bariatric surgery status
CPT/HCPCS: 99024

== ENCOUNTER 2025-02-02 13:22 | Outpatient (AMB) | payer OTHER, SELFPAY ==
--- NOTE | 2025-02-02 13:15 | MHC.WMTHER ---
Intake Intake Visit Reasons: TV PO LSG 01/26/25 Allergies citalopram Adverse Reaction (Intermediate, Verified 02/01/25 16:09) restless leg syndrome venlafaxine Adverse Reaction (Intermediate, Verified 02/01/25 16:09) abdominal pain bupropion Adverse Reaction (Mild, Verified 02/01/25 16:09) angry [facility] Medical History (Updated 01/31/25 @ 00:01 by Brandy Mo) Diaphragmatic hernia Hepatic steatosis BMI 34.0-34.9,adult Post-COVID chronic shortness of breath HTN (hypertension) Dyspnea on exertion Impaired glucose tolerance Diabetes Dysphagia Mild recurrent major depression Neck pain GERD (gastroesophageal reflux disease) Cramps of lower extremity Family history of thyroid disease Deep vein thrombosis (DVT) Lab test positive for detection of COVID-19 virus Obesity Surgical History (Updated 02/01/25 @ 16:10 by Jade Gutierrez CMA) S/P gastric sleeve procedure History of cone biopsy of cervix History of exploratory laparotomy History of colonoscopy History of esophagogastroduodenoscopy (EGD) (11/02/24) Family History Mother Alzheimer disease Dementia Hypertension Thyroid disease Mental health disorder Father No problems noted. 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 Her weight on the day of surgery was 175 lbs; as of 02/01/2025, her weight is 166 lbs. She denies any pain or complications with recovery and reports tolerating the liquid diet well. Mood is described as good, with adequate energy, though she experiences boredom and occasional sleep disturbances due to ongoing caregiving responsibilities for her mother. She denies feelings of hunger but notes frequent thoughts about food, as she continues to prepare meals for her mother and dogs and assists her mother with feeding. Support system includes her and son. Objective: The patient presents for a behavioral health post-operative follow-up visit. A guided emotional check-in was conducted to assess her current functioning, recovery, mood, and emotional state. Psychoeducation was provided on the emotional and psychological adjustments commonly experienced after bariatric surgery. We also focused on distinguishing between hunger and cravings or food thoughts, exploring possible reasons for these experiences, and strategies to work on her mindset. Emphasis was placed on becoming mindful of her physical and mental needs during these times while staying on track. The importance of adhering to the Weight Management Program (WMP) providers' instructions was emphasized, including the pace of drinking and following the meal and exercise plan. Assessment/Response: Mental status: WNL Risk reported/identified: None Assessment & Plan Assessment & Plan (1) Adjustment disorder: Code(s): F43.20 - Adjustment disorder, unspecified Plan The patient wants to continue receiving behavioral health support as she transitions through the post-operative period. The focus will be on developing coping strategies to manage boredom, sleep disturbances, and food-related thoughts during her recovery. She is encouraged to maintain engagement with her support system, including her and son, and to utilize additional resources if needed. A follow-up appointment is scheduled in three weeks, on 02/23/25 at 11:00 am for a full session, where her adjustment to the post-surgical lifestyle and any emerging behavioral health needs will be further addressed. Telehealth Telehealth Telehealth Platform: [employer] Location of provider rendering services: other (Home office. [place], [place]) Location of patient: address on file Patient Identification confirmed using: Name, : Yes Telehealth method: voice only Patient verbally consented to treatment: Yes Patient verbally consented to billing insurance company: Yes Patient informed of any privacy concerns related to visit: Yes Minutes spent on Phone/Video with Pt.: 45 Coding Level of Care Code Established Pt Tele Psytx 45 mins (33800) Patient Type Established Diagnoses Adjustment disorder F43.20 Time Spent (min) 45
--- OUTSIDE RECORDS SUMMARY | 2025-02-02 13:25 | XMS_ITS | Patient Health Record ---
Author Organization [facility] Address [address] [place] [address] Care Team Providers Care Napper Fixer Name Role Phone Kristin Marquez Primary Care Provider Vincent Shaver Unavailable [phone] Reason For Referral No Information Medications Medication [...] Problem Status W/U Status Risk Notes Problem Screening for malignant neoplasm of colon (853750189) Encounter for screening for malignant neoplasm of colon (Z12.11) Active confirmed Problem Pre-procedure evaluation check (838855250) Pre-procedural examination (Z01.818) Active confirmed Plan Of Treatment Future Test Test Name Order Date COLONOSCOPY 10/07/2016 Insurance Providers Payer Name Payer Address Payer Phone Subscriber Number Group Number Insured Name Patient Relationship to Insured Coverage Start Date Coverage End Date [facility] [address] [place] [phone] [id number] AIDAN SIDHU Self - patient is the insured Medical (General) History Medical History History ICD Code Hypertension Denies AR,DM,CVA,Lung disease,renal dise ase Depression Describes a negative [...]
== END 2025-02-02 13:44 | disposition home or self-care (01) ==
LOC: HO.HBST 13:22
PROVIDERS: PCP Internal Medicine; Visit Provider Counselor Mental Health
DX: F43.20 Adjustment disorder, unspecified (principal)
CPT/HCPCS: 90834

== ENCOUNTER 2025-02-07 16:01 | Outpatient (AMB) | payer OTHER, SELFPAY ==
[2025-02-07 16:04] VITALS: BP 120/80; PULSE 60; TEMP 36.2; O2SAT 96; BMI 31.3
--- NOTE | 2025-02-07 16:04 | A.OFFPC_ITS ---
Vital Signs 02/07/25 16:04 Height 5 ft 1 in Weight 165 lb 8 oz BMI 31.3 BP 120/80 Blood Pressure Location Lt brachial Position Sitting Pulse 60 Pulse Source Pulse Oximeter Temp 97.1 F Temp Source Temporal Artery Scan Pulse Oximetry (%) 96 Oxygen Delivery Method Room Air Intake Visit Reasons: DM Allergies citalopram Adverse Reaction (Intermediate, Verified 02/07/25 16:07) restless leg syndrome venlafaxine Adverse Reaction (Intermediate, Verified 02/07/25 16:07) abdominal pain bupropion Adverse Reaction (Mild, Verified 02/07/25 16:07) angry Medication List - Last Reconciled 02/07/25 by Radha Pino MD fluticasone furoate-vilanterol 200-25 mcg/dose (Breo Ellipta) 1 inh inhalation DAILY 30 days pantoprazole 40 mg PO DAILY sucralfate 10 mL PO BID Tobacco use date assessed: 02/07/25 Dental Screening Dental Screen Date: 02/07/25 Did you have a dental visit in the last 12 months?: No Did you have a dental problem in the last 6 months where you did not have access to dental care?: No Was dental information given to patient?: No HPI DM HPI Details 01/26/2025 32 lbs states has not had BM but passing gas. eating only liquid. PFSH Medical History Diaphragmatic hernia Hepatic steatosis BMI 34.0-34.9,adult Post-COVID chronic shortness of breath HTN (hypertension) Dyspnea on exertion Impaired glucose tolerance Diabetes Dysphagia Mild recurrent major depression Neck pain GERD (gastroesophageal reflux disease) Cramps of lower extremity Family history of thyroid disease Deep vein thrombosis (DVT) Lab test positive for detection of COVID-19 virus Obesity Surgical History S/P gastric sleeve procedure History of cone biopsy of cervix History of exploratory laparotomy History of colonoscopy History of esophagogastroduodenoscopy (EGD) (11/02/24) Family History Mother Alzheimer disease Dementia Hypertension Thyroid disease Mental health disorder Father No problems noted. 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 1. Little interest or pleasure in doing things: not at all 2. Feeling down, depressed, or hopeless: not at all 3. Trouble falling or staying asleep, or sleeping too much: not at all 4. Feeling tired or having little energy: not at all 5. Poor appetite or overeating: not at all 6. Feeling bad about yourself - or that you are a failure or have let yourself or your family down: not at all 7. Trouble concentrating on things, such as reading the newspaper or watching television: several days 8. Moving or speaking so slowly that other people could have noticed. Or the opposite - being so fidgety or restless that you have been moving around a lot more than usual: not at all 9. Thoughts that you would be better off or of hurting yourself in some way: not at all Total score: 1 Depression Screening Interpretation: Negative Depression Screening Done: Yes Source: Developed by Drs. Vincent Cade, Raisa Gonzalez, Yg Heller and colleagues, with an educational walter from [employer]. Thrive Questionnaire Date Thrive assessed: 10/17/24 I am a: Patient What is your living situation today?: I have a steady place to live Within the past 12 months, did the food you bought not last and you didn't have the money to get more?: Sometimes True Within the past 12 months, did you worry whether your food would run out before you got money to buy more?: I choose not to answer this question Do you have trouble paying for medicines?: No Do you have trouble getting transportation to medical appointments?: No Do you have trouble paying your heating and electricity bill?: Yes Do you have trouble taking care of your child, family member or friend?: Yes Do you have trouble with day-to-day activities such as bathing, preparing meals, shopping, managing finances, etc.?: No Are you currently unemployed and looking for a job?: Yes Are you interested in more education?: No Please select the resources that you would like help with: Utilities Currently or been in a relationship where the following occur: I choose not to answer THRIVE Score: 2 AUDIT C Alcohol Use Questionnaire (AUDIT-C) 1. How often do you have a drink containing alcohol?: Never 3. How often do you have six or more drinks on one occasion?: Never Total Score: 0 CRISTIANE-7 AMB Questionnaire CRISTIANE-7 Date CRISTIANE - 7 assessed: 05/27/24 Feeling nervous, anxious, or on edge: 1 = Several days Not being able to stop or control worryin = Several days Worrying too much about different things: 1 = Several days Trouble relaxin = More than half the days Being so restless that it is hard to sit still: 0 = Not at all Becoming easily annoyed or irritable: 1 = Several days Feeling afraid as if something awful might happen: 1 = Several days Total CRISTIANE-7 score (0-4 normal; 5-9 mild; 10-14 moderate; 15-21 severe): 7 Source: Developed by Drs. Vincent Cade, Raisa Gonzalez, Yg Heller and colleagues, with an educational walter from [employer]. Physical exam (Primary Care) Vital Signs: Last Vital Signs Temp 97.1 F 02/07/25 16:04 Pulse 60 02/07/25 16:04 BP 120/80 02/07/25 16:04 Pulse Ox 96 02/07/25 16:04 Oxygen Delivery Method Room Air 02/07/25 16:04 BMI result Body Mass Index 31.3 Tobacco/Smoking Status: Tobacco use Status Tobacco use date assessed 02/07/25 02/07/25 16:08 Patient Tobacco Use Status Former Tobacco user 02/07/25 16:08 Tobacco use type Cigarette 02/07/25 16:08 e-Cigarette/Vaping Use Never Used 02/07/25 16:08 PHQ-9: PHQ-9 Score PHQ-9: Total score 1 02/07/25 16:09 Depression Screening Interpretation: Negative Thrive Assessment: Date of Thrive Assessment Date Thrive assessed 10/17/24 02/07/25 16:08 Currently or been in a relationship where the following occur: I choose not to answer Const General: alert; No acute distress Eyes Conjunctivae: conjunctivae normal Resp Auscultation: clear to auscultation bilaterally Cardio Rate: regular rate Rhythm: regular rhythm GI Inspection: Yes normal to inspection Extrem General: Yes normal to inspection and No edema Coding Level of Care Code Est Pt Level 4 (63391) Complex EM visit Add On G2211 Diagnoses Hypertension, unspecified type I10 Hypertension type: unspecified Hypercholesterolemia E78.00 Type 2 diabetes mellitus with hyperglycemia E11.65 Class 2 severe obesity due to excess calories with serious comorbidity and body mass index (BMI) of 36.0 to 36.9 in adult E66.812; E66.01; Z68.36 Obesity type: due to excess calories Obesity classification: adult class 2 (BMI 35 - 39.9) Serious obesity comorbidity presence: with serious comorbidity Body mass index: BMI 36.0-36.9 History of sleeve gastrectomy Z90.3 Right shoulder pain M25.511 Assessment & Plan Assessment & Plan (1) Hypertension: Code(s): I10 - Essential (primary) hypertension Category: Medical Qualifiers: Hypertension type: unspecified Qualified Code(s): I10 - Essential (primary) hypertension Plan: Blood pressure medications were on hold as the patient has had sleeve jaye rectomy in January. (2) Hypercholesterolemia: Code(s): E78.00 - Pure hypercholesterolemia, unspecified Category: Medical Plan: Avoid fried foods, chicken skin, eggs, butter margarine, pastries and meat. Be it pork or beef they have a lot of cholesterol (3) Type 2 diabetes mellitus with hyperglycemia: Code(s): E11.65 - Type 2 diabetes mellitus with hyperglycemia Category: Medical Plan: Decrease the amount of carbohydrate intake, pasta, bread, rice and potatoes are all sugar and that is aside from all the sweet stuff, remember that fruits are good but they are Sweet also. Continue to monitor last hemoglobin A1c was 6.3 (4) Obesity: Code(s): E66.9 - Obesity, unspecified Category: Medical Qualifiers: Obesity type: due to excess calories Obesity classification: adult class 2 (BMI 35 - 39.9) Serious obesity comorbidity presence: with serious comorbidity Body mass index: BMI 36.0-36.9 Qualified Code(s): E66.812 - Obesity, class 2; E66.01 - Morbid (severe) obesity due to excess calories; Z68.36 - Body mass index [BMI] 36.0-36.9, adult Plan: Continue with diet and exercise (5) History of sleeve gastrectomy: Code(s): Z90.3 - Acquired absence of stomach [part of] Category: Surgical Plan: Continue to follow-up with bariatric (6) Right shoulder pain: Code(s): M25.511 - Pain in right shoulder Category: Medical Plan History of Present Illness The patient is a 64-year-old female presenting for a follow-up visit after weight loss surgery and to manage ongoing health conditions. The patient has a history of obesity and underwent sleeve gastrectomy in January 2025, resulting in a weight loss of 32 pounds. She reports improved ease in daily activities such as dressing and putting on shoes. The patient has a history of deep vein thrombosis (DVT) and is currently managing diabetes mellitus, with the last hemoglobin A1c recorded at 6.3 in December. Her blood sugar was noted to be 114, and she continues to monitor her condition with diet and exercise. The patient also has hepatic steatosis, confirmed by an ultrasound in November, and is managing asthma with inhalers. She is taking sucralfate and pantoprazole for gastrointestinal management post-surgery. The patient reports an adjustment disorder and is receiving counseling and therapy. She also mentions experiencing a fall post-surgery, resulting in a right knee abrasion and shoulder pain, for which an x-ray has been ordered. Health Maintenance - Mammogram completed in August 2024 - Colonoscopy last performed in 2016 - Blood pressure management with amlodipine 10 mg once daily - Monitoring of hemoglobin A1c, last recorded at 6.3 in December - Dietary and exercise recommendations for diabetes management Social History - The patient is actively involved in weight management following sleeve gastrectomy, reporting a 32-pound weight loss. - She is engaged in counseling and therapy for adjustment disorder. - The patient is managing her diabetes with dietary modifications and exercise. Review of Systems - Respiratory: Reports cough with yellow sputum, denies dyspnea or sore throat - Gastrointestinal: Reports no bowel movements since surgery, denies nausea - Musculoskeletal: Reports right shoulder pain and knee abrasion post-fall Physical Exam - Respiratory: Clear to auscultation, no abnormal sounds detected Results - Labs: Mild anemia with hemoglobin at 11.3, blood sugar at 114, hemoglobin A1c at 6.3 - Imaging: Ultrasound in November showing hepatic steatosis Plan Patient was informed and verbally consented to the use of an ambient scribe for clinic note documentation during this visit. 1. Obesity The patient underwent sleeve gastrectomy in January 2025, resulting in a 32- pound weight loss. She reports improved ease in daily activities and continues to follow up with bariatrics for weight management. 2. Diabetes Mellitus The patient's last hemoglobin A1c was 6.3 in December, and blood sugar was 114. She is advised to continue monitoring her condition with diet and exercise and follow up with bariatrics. 3. Hepatic Steatosis An ultrasound in November confirmed hepatic steatosis. The patient is advised to continue monitoring liver function and maintain a healthy diet. 4. Asthma The patient manages asthma with inhalers and is advised to rinse her mouth after use. 5. Adjustment Disorder The patient is receiving counseling and therapy for adjustment disorder. 6. Right Shoulder Pain The patient reports right shoulder pain post-fall, and an x-ray has been ordered to assess the condition. Discussion Notes During the visit, we discussed the patient's recent sleeve gastrectomy and the subsequent weight loss of 32 pounds. We reviewed her diabetes management, emphasizing the importance of diet and exercise, and noted her hemoglobin A1c of 6.3. We also addressed her hepatic steatosis, asthma management, and adjustment disorder, ensuring she continues with her current therapies and monitoring. An x-ray was ordered for her right shoulder pain following a fall. Patient Instructions - Continue with dietary and exercise regimen to manage diabetes and support weight loss. - Follow up with bariatrics for ongoing weight management. - Use inhalers as prescribed and rinse mouth after use to manage asthma. - Attend counseling sessions for adjustment disorder. - Schedule an x-ray for right shoulder pain assessment. Orders: Orders Complete Blood Count Auto Diff 3 Months E11.65 - Type 2 diabetes mellitus with hyperglycemia Comprehensive Met. Panel 3 Months E11.65 - Type 2 diabetes mellitus with hyperglycemia Free T4 (Free Thyroxine) 3 Months E11.65 - Type 2 diabetes mellitus with hyperglycemia Hemoglobin A1c 3 Months E11.65 - Type 2 diabetes mellitus with hyperglycemia Reticulocyte Count 3 Months E11.65 - Type 2 diabetes mellitus with hyperglycemia Lipid Panel 3 Months E11.65 - Type 2 diabetes mellitus with hyperglycemia, E78.00 - Pure hypercholesterolemia, unspecified Thyroid Stimulating Hormone 3 Months E11. - Type 2 diabetes mellitus with hyperglycemia Magnesium 3 Months E11.65 - Type 2 diabetes mellitus with hyperglycemia XR shoulder RT min 2V Today M25.511 - Pain in right shoulder Ferritin 3 Months E11. - Type 2 diabetes mellitus with hyperglycemia IRON PROFILE 3 Months E11. - Type 2 diabetes mellitus with hyperglycemia Vitamin D 25-OH Total 3 Months E11.65 - Type 2 diabetes mellitus with hyperglycemia
--- OUTSIDE RECORDS SUMMARY | 2025-02-07 18:30 | XMS_ITS | Patient Health Record ---
Author Organization [facility] Address [address] [place] [address] Care Team Providers Care Branch Lending Manager Name Role Phone Kristin Marquez Primary Care Provider Vincent Shaver Unavailable [phone] Reason For Referral No Information Medications Medication [...] Problem Screening for malignant neoplasm of colon ([id number]) Encounter for screening for malignant neoplasm of colon (Z12.11) Active confirmed Problem Pre-procedure evaluation check ([id number]) Pre-procedural examination (Z01.818) Active confirmed Plan Of Treatment Future Test Test Name Order Date COLONOSCOPY 10/07/2016 Insurance Providers Payer Name Payer Address Payer Phone Subscriber Number Group Number Insured Name Patient Relationship to Insured Coverage Start Date Coverage End Date [employer] [address] [place] [place] [phone] [id number] AIDAN SIDHU Self - patient is the insured Medical (General) History Medical History History ICD Code Hypertension Denies HI,DM,CVA,Lung disease,renal dise ase Depression Describes a negative [...]
== END 2025-02-07 16:59 | disposition home or self-care (01) ==
LOC: HO.HMCH 16:02
PROVIDERS: PCP Internal Medicine; Visit Provider Internal Medicine
DX: I10 Essential (primary) hypertension (principal); E78.00 Pure hypercholesterolemia, unspecified; E11.65 Type 2 diabetes mellitus with hyperglycemia; E66.812 Obesity, class 2; E66.01 Morbid (severe) obesity due to excess calories; Z68.36 Body mass index [BMI] 36.0-36.9, adult; Z90.3 Acquired absence of stomach [part of]; M25.511 Pain in right shoulder

== ENCOUNTER 2025-02-23 11:51 | Outpatient (AMB) | payer OTHER, SELFPAY ==
--- NOTE | 2025-02-23 11:30 | MHC.WMTHER ---
Intake Intake Visit Reasons: TV PO LSG 01/26/25 Allergies citalopram Adverse Reaction (Intermediate, Verified 02/07/25 16:07) restless leg syndrome venlafaxine Adverse Reaction (Intermediate, Verified 02/07/25 16:07) abdominal pain bupropion Adverse Reaction (Mild, Verified 02/07/25 16:07) angry PFSH Medical History Diaphragmatic hernia Hepatic steatosis BMI 34.0-34.9,adult Post-COVID chronic shortness of breath HTN (hypertension) Dyspnea on exertion Impaired glucose tolerance Diabetes Dysphagia Mild recurrent major depression Neck pain GERD (gastroesophageal reflux disease) Cramps of lower extremity Family history of thyroid disease Deep vein thrombosis (DVT) Lab test positive for detection of COVID-19 virus Obesity Surgical History S/P gastric sleeve procedure History of cone biopsy of cervix History of exploratory laparotomy History of colonoscopy History of esophagogastroduodenoscopy (EGD) (11/02/24) Family History Mother Alzheimer disease Dementia Hypertension Thyroid disease Mental health disorder Father No problems noted. 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 She reports difficulty adhering to her prescribed meal plan and expresses a desire to begin introducing a wider variety of foods, which she has communicated to her provider. Her current weight is 156 lbs, reflecting a total loss of 39 lbs since starting the program and 19 lbs since surgery (approximately 4 lbs per week). During the session, the patient appeared overwhelmed and tearful, citing significant stress related to her mother?s health and ongoing financial difficulties. She is scheduled to return to work on 03/08/25. Objective: The patient participated in a post-operative behavioral health appointment via telephone. An emotional check-in was conducted, and the session focused on assessing her current functioning, progress, and ongoing challenges. The patient?s emotional responses were validated and normalized. Together, we reviewed her meal plan as provided by her physician and developed a clearer, more structured eating schedule, integrating behavioral activation strategies. Psychoeducation was provided regarding the emotional and psychological adjustments commonly experienced after bariatric surgery, including distinguishing between physical hunger, cravings, and food-related thoughts. Strategies for mindset shifts and coping with post-surgical changes were discussed. Assessment/Response: Mental status: The patient was alert and oriented to person, place, and time. Mood was described as stressed and tearful, but she remained cooperative and engaged. Affect was congruent with mood. Thought processes were logical and goal-directed. No evidence of psychosis or cognitive impairment. Risk reported/identified: The patient denies any suicidal ideation, self-harm, or thoughts of harm to others. No acute safety concerns identified at this time. Assessment & Plan Assessment & Plan (1) Adjustment disorder: Code(s): F43.20 - Adjustment disorder, unspecified (2) Status post bariatric surgery: Code(s): Z98.84 - Bariatric surgery status Plan -Continue to support the patient in adhering to her post-surgical meal plan and behavioral activation strategies. -Reinforce coping skills for managing stress related to family and financial concerns. -Monitor for signs of emotional distress or adjustment difficulties as she prepares to return to work. Follow up in 2?3 weeks; next appointment scheduled for 03/10/2025 at 3:00 PM via phone. Telehealth Telehealth Telehealth Platform: [facility] Location of provider rendering services: practice address Location of patient: address on file Patient Identification confirmed using: Name, : Yes Telehealth method: video Patient verbally consented to treatment: Yes Patient verbally consented to billing insurance company: Yes Patient informed of any privacy concerns related to visit: Yes Minutes spent on Phone/Video with Pt.: 45 Coding Level of Care Code Established Pt Tele Psytx 45 mins ([id number]) Patient Type Established Diagnoses Adjustment disorder F43.20 Status post bariatric surgery Z98.84 Time Spent (min) 45 Comment Start time: 11:30am - End time: 12:15pm
--- OUTSIDE RECORDS SUMMARY | 2025-02-23 14:53 | XMS_ITS | Patient Health Record ---
Author Organization [facility] Address [address] [place] [address] Care Team Providers Care Bridge Worker Apprentice Name Role Phone Kristin Marquez Primary Care Provider Vincent Shaver Unavailable [phone] Reason For Referral No Information Medications Medication [...] Problem Screening for malignant neoplasm of colon ([id number]) Encounter for screening for malignant neoplasm of colon (Z12.11) Active confirmed Problem Pre-procedure evaluation check (082217052) Pre-procedural examination (Z01.818) Active confirmed Plan Of Treatment Future Test Test Name Order Date COLONOSCOPY 10/07/2016 Insurance Providers Payer Name Payer Address Payer Phone Subscriber Number Group Number Insured Name Patient Relationship to Insured Coverage Start Date Coverage End Date [facility] [address] [facility] [place] [phone] [id number] AIDAN SIDHU Self - patient is the insured Medical (General) History Medical History History ICD Code Hypertension Denies CO,DM,CVA,Lung disease,renal dise ase Depression Describes a negative [...]
== END 2025-02-23 12:24 | disposition home or self-care (01) ==
LOC: HO.HBST 11:51
PROVIDERS: PCP Internal Medicine; Visit Provider Counselor Mental Health
DX: F43.20 Adjustment disorder, unspecified (principal); Z98.84 Bariatric surgery status
CPT/HCPCS: 90834